=== PATIENT | female | born 1950 | race Caucasian/White ===

== ENCOUNTER 2023-06-25 10:33 | Outpatient (OUT) | payer MEDICARE, SELFPAY ==
--- NOTE | 2023-06-25 | XR_ITS ---
The [place] [id number] Patient Name: JAGJIT BEAL MRN: [id number] date: 1950 Sex: F Assigned Patient Location: [facility] Current Patient Location: [facility] Accession/Order Number: [id number] Exam Date: 06/25/2023 09:15 Report Date: 06/25/2023 11:30 At the request of: NURY PIERRE Procedure: XR foot RT min 3V STUDY: XR foot RT min 3V, [id number] HISTORY: RIGHT FOOT PAIN COMPARISON: Right foot x-rays 12/26/2022. FINDINGS: No acute fracture, dislocation, or suspicious osseous lesion. Status post first metatarsophalangeal joint arthrodesis. The fusion hardware is intact and similar alignment compared with 12/26/2022. No evidence of loosening or infection. Alignment at the first metatarsophalangeal joint is within normal limits. There is pes planus. Small plantar calcaneal spur and mild Achilles insertional enthesopathy. Mild osteoarthritis at the first tarsometatarsal joint. No other significant joint degenerative changes. XR/XR foot RT min 3V IMPRESSION: No acute osseous abnormality. Electronically authenticated by: CARIDAD LUNDBERG Date: 06/25/2023 11:30
== END 2023-06-25 10:34 | disposition home or self-care (01) ==
LOC: RAD 10:33
PROVIDERS: PCP Family Medicine; Visit Provider Podiatrist Foot & Ankle Surgery
DX: M20.21 Hallux rigidus, right foot (principal)
CPT/HCPCS: 73630

== ENCOUNTER 2023-07-11 10:51 | Outpatient (OUT) | payer MEDICARE, SELFPAY ==
--- NOTE | 2023-07-11 10:56 | ECG_ITS ---
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
--- NOTE | 2023-07-11 11:48 | P.GSHP_ITS ---
History of Present Illness History of Present Illness Chief complaint: halux valgus right foot Narrative: Patient presents for preadmission testing. Please see HPI from Dr. Swartz dated 06/25/2023. Review of Systems ROS Narrative Please see ROS from Dr. Swartz dated 06/25/2023. [facility] Medical History (Updated 07/11/23 @ 11:29 by Selin Anaya NP) Arthritis ?M19.90 - Unspecified osteoarthritis, unspecified site (ICD-10) Back pain ?M54.9 - Dorsalgia, unspecified (ICD-10) Bunionette ?M21.629 - Bunionette of unspecified foot (ICD-10) COVID-19 (05/28/23) ?U07.1 - COVID-19 (ICD-10) Fat pad atrophy of foot ?L90.9 - Atrophic disorder of skin, unspecified (ICD-10) Foot pain ?M79.673 - Pain in unspecified foot (ICD-10) H/O reduction of nasal fracture ?Z98.890 - Other specified postprocedural states (ICD-10) ?Z87.81 - Personal history of (healed) traumatic fracture (ICD-10) Hallux rigidus ?M20.20 - Hallux rigidus, unspecified foot (ICD-10) Hallux valgus ?M20.10 - Hallux valgus (acquired), unspecified foot (ICD-10) Hammertoe ?M20.40 - Other hammer toe(s) (acquired), unspecified foot (ICD-10) Nasal fracture ?S02.2XXA - Fracture of nasal bones, initial encounter for closed fracture (ICD-10) Neck pain ?M54.2 - Cervicalgia (ICD-10) Prediabetes ?R73.03 - Prediabetes (ICD-10) Retained orthopedic hardware ?Z96.9 - Presence of functional implant, unspecified (ICD-10) Seasonal allergies ?J30.2 - Other seasonal allergic rhinitis (ICD-10) Toe contracture ?M20.5X9 - Other deformities of toe(s) (acquired), unspecified foot (ICD-10) Toe deformity ?M20.60 - Acquired deformities of toe(s), unspecified, unspecified foot (ICD- 10) Urinary tract infection ?N39.0 - Urinary tract infection, site not specified (ICD-10) Surgical History (Updated 07/11/23 @ 11:29 by Selin Anaya NP) H/O cervical spine surgery ?Z98.890 - Other specified postprocedural states (ICD-10) H/O hand surgery ?Z98.890 - Other specified postprocedural states (ICD-10) H/O oophorectomy History of appendectomy ?Z90.49 - Acquired absence of other specified parts of digestive tract (ICD- 10) History of cholecystectomy ?Z90.49 - Acquired absence of other specified parts of digestive tract (ICD- 10) History of colonoscopy ?Z98.890 - Other specified postprocedural states (ICD-10) History of foot surgery ?Z98.890 - Other specified postprocedural states (ICD-10) History of laparoscopy ?Z98.890 - Other specified postprocedural states (ICD-10) History of spinal surgery ?Z98.890 - Other specified postprocedural states (ICD-10) History of tonsillectomy ?Z90.89 - Acquired absence of other organs (ICD-10) Family History (Updated 07/11/23 @ 11:29 by Selin Anaya NP) Other Family history of breast cancer Family history of diabetes mellitus Family history of heart disease Family history of myocardial infarction Family history of stroke Social History (Updated 07/11/23 @ 11:23 by Selin Anaya NP) Within the past year, how often did you have a drink containing alcohol: never Score interpretation: A score less than 3 is consistent with normal alcohol consumption. Smoking status: Never smoker Meds Home Medications and Allergies Home Medications Medication Instructions Recorded Confirmed Type Lactobacillus acidophilus 10 100 mmu cells PO DAILY 07/11/23 07/11/23 History billion cell capsule (Probiotic) apple cider vinegar 600 mg capsule 600 mg PO BID 07/11/23 07/11/23 History ascorbic acid (vitamin C) 1,000 mg 1 g PO DAILY 07/11/23 07/11/23 History capsule biotin 1 mg capsule 1 mg PO DAILY 07/11/23 07/11/23 History caffeine 200 mg tablet 200 mg PO DAILY 07/11/23 07/11/23 History calcium carbonate 600 mg-vitamin 1 tab PO DAILY 07/11/23 07/11/23 History D3 5 mcg (200 unit) tablet (Calcium 600 + D(3)) cetirizine 10 mg capsule 10 mg PO QPM 07/11/23 07/11/23 History cranberry 400 mg capsule 400 mg PO DAILY 07/11/23 07/11/23 History d-mannose 500 mg capsule (AZO 500 mg PO QDAY 07/11/23 07/11/23 History D-Mannose) elderberry fruit 200 mg capsule 200 mg PO QDAY 07/11/23 07/11/23 History ibuprofen 800 mg tablet (IBU) 800 mg PO Q8H 07/11/23 07/11/23 History nitrofurantoin macrocrystal 50 mg 50 mg PO .three times a week 07/11/23 07/11/23 History capsule Allergies Allergy/AdvReac Type Severity Reaction Status Date / Time codeine Allergy Nausea Verified 07/11/23 11:16 fexofenadine [From Carleen-D] Allergy lightheaded Verified 07/11/23 11:16 metaxalone [From Skelaxin] Allergy Anxiety Verified 07/11/23 11:16 morphine Allergy Vomiting Verified 07/11/23 11:16 pseudoephedrine Allergy lightheaded Verified 07/11/23 11:16 [From Carleen-D] Sulfa (Sulfonamide Allergy itchy Verified 07/11/23 11:16 Antibiotics) tramadol Allergy unknown Verified 07/11/23 11:16 Exam Narrative Exam Narrative: Constitutional: Awake, alert, comfortable, well-appearing, nontoxic, interactive, vital signs as charted Head: Normocephalic, atraumatic Neck: Supple, normal appearance, normal range of motion, no meningeal signs, no lymphadenopathy Respiratory: No respiratory distress, breath sounds clear Cardiovascular: Regular rate and rhythm, strong and regular heart tones Psychiatric: Oriented ?3, normal affect Assessment and Plan Assessment and Plan (1) Bunionette: (2) Foot pain: (3) Hallux rigidus: (4) Hallux valgus: (5) Hammertoe: (6) Retained orthopedic hardware: (7) Toe contracture: (8) Toe deformity: (9) Fat pad atrophy of foot: Plan Right foot removal of hardware, Jorge osteotomy of great toe, 2nd metatarsal ost eotomy with 2nd hammertoe correction, possible flexor tenotomies of toes 3, 4, & 5, implantation of fat pad allograft scheduled with Dr. Swartz 07/25/2023.
[2023-07-11 11:58] LABS: Anion Gap 11.1; BUN Creatinine Ratio 18.4; Calcium 9.4 mg/dL (8.5-10.1); Carbon Dioxide 29.9 mmol/L (21.0-32.0); Chloride 103 mmol/L (98-107); Estimated GFR (African America >60 (>=60); Estimated GFR (Non-African Ame >60 (>=60); Glucose 91 mg/dL (74-106); Sodium 140 mmol/L (136-145)
== END 2023-07-11 10:52 | disposition home or self-care (01) ==
PROVIDERS: PCP Family Medicine; Visit Provider Podiatrist Foot & Ankle Surgery
DX: Z01.812 Encounter for preprocedural laboratory examination (principal); Z01.810 Encounter for preprocedural cardiovascular examination; M20.11 Hallux valgus (acquired), right foot; Z96.9 Presence of functional implant, unspecified; I10 Essential (primary) hypertension
CPT/HCPCS: 80048; 93005; G0463

== ENCOUNTER 2023-07-25 07:14 | Day surgery (SDC) | payer MEDICARE, SELFPAY ==
[2023-07-11 11:45] VITALS: BP 112/70; PULSE 65; RESP 16; TEMP 36.2; O2SAT 98; BMI 23.8
[2023-07-25] VITALS (24 sets, daily range): BP systolic 100–136; BP diastolic 49–94; PULSE 59–83; RESP 11–23; TEMP 36.2–36.9; O2SAT 92–100; BMI 24.0
--- NOTE | 2023-07-25 | FL_ITS ---
[address] [address] Patient Name: JAGJIT BEAL MRN: [id number] date: 1950 Sex: F Assigned Patient Location: [facility] Current Patient Location: [facility] Accession/Order Number: [id number] Exam Date: 07/25/2023 10:36 Report Date: 07/25/2023 12:56 At the request of: NURY PIRERE Procedure: FL fluoroscopy <1hr NON-READ EXAM: FL fluoroscopy <1hr NON-READ HISTORY: TECHNIQUE: FINDINGS: Please see Operative Report. Electronically authenticated by: RADIOLOGIST NO Date: 07/25/2023 12:56
[2023-07-25 07:37] LABS: Eosinophils Absolute Auto 0.1 10^3/uL (0.0-0.7); Eosinophils Percent Auto 1.4 % (0.9-7.0); Hemoglobin 13.8 g/dL (12.0-16.0); Immature Granulocytes Abs Auto 0.01 10^3/uL (0.00-0.03); Immature Granulocytes Pct Auto 0.2 % (0.0-0.5); Lymphocytes Absolute Auto 1.4 10^3/uL (1.2-3.8); Lymphocytes Percent Auto 32.4 % (20.5-60.0); Mean Corpuscular HGB Conc 33.7 g/dL (29.9-35.2); Mean Corpuscular Hemoglobin 32.2 pg (26.7-34.0); Mean Corpuscular Volume 95.8 fL (81.0-99.0); Mean Platelet Volume 10.2 fL (9.5-13.5); Monocytes Absolute Auto 0.4 10^3/uL (0.3-0.8); Monocytes Percent Auto 10.1 % (1.7-12.0); Neutrophils Absolute Auto 2.3 10^3/uL (1.4-6.5); Neutrophils Percent Auto 54.9 % (43.0-75.0); Platelet Count 169 10^3/uL (150-450); Red Blood Count 4.28 10^6/uL (4.20-5.40); Red Cell Distribution Width 12.1 % (11.0-15.0); White Blood Count 4.2 10^3/uL (4.0-11.0)
[2023-07-25 07:46] LABS: Glucometer 103 mg/dL (74-106)
[2023-07-25] MEDS: LACTATED RINGER'S SOLUTION 1,000 ML 50 ML IV ×2 (07:58→11:40)
--- NOTE | 2023-07-25 09:43 | PC.NURSE ---
[address] SHIPLEY AND Karon MOMIN RN. MULTIPLE ATTEMPTS BY WITHOUT SUCCESS. 0900 SAO2 100% WITH 2 L NC P 66 R 16 118/68. 0929 DR. NUGENT CAME IN AND DID BLOCK. LAST VS @0935 SAO2 100% ON 2 L P62 R16 BP 105/47.
[2023-07-25] MEDS: CEFAZOLIN SODIUM/DEXTROSE,ISO 2 GM/50 ML PIGGYBACK IV (09:57)
--- NOTE | 2023-07-25 11:41 | P.ORON_ITS ---
Brief Operative Note Date of procedure: 07/25/23 Pre-op diagnosis: right hallux valgus, retained hardware, pre-dislocation synd jase Post-op diagnosis: other (right hallux valgus status post 1st metatarsophalangeal joint fusion with painful retained hardware, pre-dislocation syndrome of 2nd and 3rd metatarsophalangeal joints, 2nd hammertoe and contractures of toes 3, 4 , & 5; plantar fat pad atrophy) Procedure: procedures performed: Right Jorge hallux osteotomy, removal of orthopedic hardware 1st metatarsophalangeal joint, An osteotomy of 2nd and 3rd metatarsals, 2nd PIPJ arthroplasty, flexor tenotomy of toes 3, 4 & 5 Intraoperative findings: Retained hardware was stable without evidence of loosening. 1st metatarsal phalangeal joint was fused and consolidated. Dynamic valgus deformity of the great toe when the forefoot was loaded causing the great toe to abut the 2nd toe. Reducible contracture with instability noted at the 2nd metatarsal phalangeal joint and proximal interphalangeal joint. Instability and positive dorsal drawer on the 2nd and 3rd metatarsophalangeal joints and reducible mild contractures of toes 3, 4, & 5. Plantar fat pad atrophy notable with fat pad displacement distally which did improve with deformity correction. Procedures in detail: Patient was identified in pre op and consent was reviewed. Correct side and site were identified and marked. Pre-op antibiotics were started. Patient was brought to OR suite and place on table in a supine position. General anesthesia was administered. Tourniquet applied. Operative extremity was prepped and draped in usual sterile fashion. Formal time-out was performed and the foot/ankle were exsanguinated and tourniquet inflated. Incision was placed over the 1st metatarsophalangeal joint and a combination of sharp and blunt dissection gained access to the plate and screw construct spanning the 1st metatarsophalangeal joint. The screws from the plate as well as an interfrag screw was removed with appropriate screwdriver allowing the plate to be then removed with a of a elevator. The joint was inspected and noted be fused without any range of motion. Incision over the great toe was then extended distally to the level of the interphalangeal joint of the great toe. The extensor tendon was protected throughout. Then an oblique osteotomy of the great toe was performed from distal?medial to proximal?lateral while maintaining the lateral cortex as a hinge. Several passes of the saw blade were used to resect the wedge of bone from the proximal phalanx which aided in deformity correction. I held the toe in a reduced position while my assistant director of plant operations fixated the osteotomy with a 10 mm stable which was placed accordingly. Good bony apposition at the osteotomy site with stability was noted as well as deformity correction. A dorsal incision over the 2nd digit and extended between the 2nd & 3rd metatarsals was utilized to expose the extensor tendon. The tendon was cut and reflected dorsally and proximally exposing the proximal interphalangeal joint and metatarsophalangeal joint. Capsulotomy of the 2nd metatarsophalangeal joint was performed sharply. A McGlammry elevator was utilized to expose the 2nd metatarsal head and a sagittal saw was used to create an osteotomy parallel to the weightbearing surface of the foot. The metatarsal head was then translated proximally and temporarily fixated with a K wire and the elevator was removed. Position was checked under fluoroscopy followed by a 2.0 mm snap off screw which was placed from a dorsal plantar direction. A rongeur was used to remove the dorsal cortical shelf. Temporary fixation was removed. Surgical site was irrigat ed with copious amounts of sterile saline. the previously placed incision was then extended proximally between the 3rd and 4th metatarsals and comminution sharp and blunt dissection gained access to the 3rd metatarsophalangeal joint. The extensor tendon was identified and retracted allowing capsulotomy of the metatarsophalangeal joint to be performed. A McGlammry elevator was utilized to further release of soft tissues around the 3rd metatarsal phalangeal joint. A sagittal saw was used to create an osteotomy parallel to the weightbearing surface of the foot. The metatarsal head was then translated proximally and temporarily fixated with a K wire and the elevator was removed. Position was checked under fluoroscopy followed by a 2.0 mm snap off screw which was placed from a dorsal plantar direction. A rongeur was used to remove the dorsal cortical shelf. upon removing the dorsal cortical shelf was noted that the osteotomy gapped slightly therefore decision was made to place an additional 2.0 mm snap off screw which stabilized the osteotomy and provided compression at the osteotomy site. the extensor tendon to the 2nd toe was then repaired with absorbable suture and all surgical sites were irrigated copiously. Due to the residual contractures at toes three, four and five decision was made to perform a percutaneous flexor tenotomy of each toe is done so with a stab incision plantarly at the level of the distal interphalangeal joint. The flexor tendon was isolated with a hemostat then transected transversely allowing the deformity of the 3rd, 4th and 5th toes to reduce. The stab incisions were closed with one absorbable stitch for hemostasis after irrigation. the dorsal foot incisions were then closed in layers The tourniquet was deflated with a prompt hyperemic response and capillary refill time was brisk to the tip the toes. A dry sterile dressing consisting of Xeroform on the incisions followed by 4 x 4 gauze, ABDs, and Kerlix were applied. Multiple layers of cast padding were then applied to ensure all bony prominences were well-padded. then an Kolton wrap was placed from the forefoot to the popliteal fossa. Patient tolerated the procedure and anesthesia well and was transported to the recovery room with vital signs stable and brisk capillary refill time to the toes. POSTOPERATIVE PLAN: Discharge home under family's care Post op instructions provided verbally and written prescription(s) were placed in chart weightbearing as tolerated in cam boot Follow-up in 1 week Implants: Medline 10 mm staple and 2.0 snap off screws x3 Anesthesia: regional and General-LMA Surgeon: Catracho Swartz Floor Mechanic: Jg Avalos Estimated blood loss (mL): 10 Pathology: none sent Condition: stable Disposition: PACU Preoperative Details Reason for procedure: patient is a 73-year-old female who underwent right 1st metatarsophalangeal joint fusion on 06/28/22. At her one-year follow-up she is very happy with pain relief associated with 1st MPJ however did note worsening valgus of the toe when weightbearing. With the foot loaded the great toes rectus however when loaded on clinical exam the IPJ plantarflexed and pronated slightly causing irritation on the 2nd toe. She also related to sensitivity over the 1st metatarsal phalangeal joint from the hardware this symptom was most significant with tight fitting shoes. She has related to worsening pain plantar forefoot sub 2nd and 3rd and 4th metatarsal heads associated with the callus formation and flexible contractures of the lesser toes. She have plantar fat pad atrophy as well. I discussed both surgical and nonsurgical treatment options and patient wished to proceed with surgical reconstruction. I did recommend that fat allograft for plantar fat pad atrophy however this was not approved by her insurance and she was not willing to pay for the cost of the graft out of pocket. She is educated and potential risks and benefits and all questions were answered to her satisfaction
[2023-07-25 12:30] LABS: Glucometer 123 mg/dL (74-106)
--- NOTE | 2023-07-25 12:52 | XR_ITS ---
The [address] [address] Patient Name: JAGJIT BEAL MRN: [id number] date: 1950 Sex: F Assigned Patient Location: [facility] Current Patient Location: Accession/Order Number: [id number] Exam Date: 07/25/2023 12:45 Report Date: 07/26/2023 07:57 At the request of: RHEA CARTER Procedure: XR foot RT min 3V PROCEDURE: XR foot RT min 3V COMPARISON: 06/25/2023 HISTORY: postop xr pacu FINDINGS: BONES:Osteotomy second and third metatarsal heads with placement of screws. Resection head of the second proximal phalanx. Interval removal of most of the hardware across the first metatarsal-phalangeal joint. SOFT TISSUES:Surgical soft tissue swelling and subcutaneous air EFFUSION:None visible. OTHER: Negative. XR/XR foot RT min 3V IMPRESSION: Postsurgical changes as detailed above Electronically authenticated by: ANAND EDUARDO Date: 07/26/2023 07:57
[2023-07-25] MEDS: ONDANSETRON PF 4 MG/2 ML VIAL IV (12:54)
[2023-07-25] MEDS: PROMETHAZINE HCL 25 MG SUPP.RECT PR (13:41)
== END 2023-07-25 15:34 | disposition home or self-care (01) ==
PROVIDERS: PCP Family Medicine; Visit Provider Podiatrist Foot & Ankle Surgery
PROC: (CPT 20680; principal; 2023-07-25 09:15)
DX: M20.11 Hallux valgus (acquired), right foot (principal); Z96.9 Presence of functional implant, unspecified; I10 Essential (primary) hypertension; Z86.16 Personal history of COVID-19; L90.9 Atrophic disorder of skin, unspecified; Z87.81 Personal history of (healed) traumatic fracture; R73.03 Prediabetes; J30.2 Other seasonal allergic rhinitis; Z87.440 Personal history of urinary (tract) infections; Z79.899 Other long term (current) drug therapy; M20.5X1 Other deformities of toe(s) (acquired), right foot; Z90.49 Acquired absence of other specified parts of digestive tract; Z90.721 Acquired absence of ovaries, unilateral; M20.41 Other hammer toe(s) (acquired), right foot; M25.871 Other specified joint disorders, right ankle and foot; M21.621 Bunionette of right foot
CPT/HCPCS: 20680; 28011; 28285; 28308; 28310; 36415; 64445; 73630; 76000; 76942; 82948; 85025; C1713; J2704

== ENCOUNTER 2023-08-20 09:50 | Outpatient (OUT) | payer MEDICARE, SELFPAY ==
--- NOTE | 2023-08-20 | XR_ITS ---
The [address] [address] Patient Name: JAGJIT BEAL MRN: [id number] date: 1950 Sex: F Assigned Patient Location: [facility] Current Patient Location: Accession/Order Number: [id number] Exam Date: 08/20/2023 10:10 Report Date: 08/21/2023 08:04 At the request of: NURY PIERRE Procedure: XR foot RT min 3V PROCEDURE: XR foot RT min 3V HISTORY: RIGHT FOOT PAIN COMPARISON: XR foot right 07/25/2023 FINDINGS: BONES:Osteotomy and bone staple repair of first proximal phalanx and prior osseous fusion of the first metatarsophalangeal joint. Stable osteotomy and screw repair of heads of the second third metatarsals. Prior resection of head of second proximal phalanx. Pes planus. SOFT TISSUES:No visible soft tissue swelling. EFFUSION:None visible. OTHER: Negative. XR/XR foot RT min 3V IMPRESSION: 1. Stable surgical changes and degenerative changes. No new findings. Electronically authenticated by: GUS OLIVO Date: 08/21/2023 08:04
== END 2023-08-20 09:51 | disposition home or self-care (01) ==
LOC: RAD 09:50
PROVIDERS: PCP Family Medicine; Visit Provider Podiatrist Foot & Ankle Surgery
DX: M79.671 Pain in right foot (principal)
CPT/HCPCS: 73630

== ENCOUNTER 2023-09-10 10:30 | Outpatient (OUT) | payer MEDICARE, SELFPAY ==
--- NOTE | 2023-09-10 | XR_ITS ---
[address] [address] Patient Name: JAGJIT BEAL MRN: [id number] date: 1950 Sex: F Assigned Patient Location: [facility] Current Patient Location: [facility] Accession/Order Number: [id number] Exam Date: 09/10/2023 11:09 Report Date: 09/10/2023 16:12 At the request of: NURY PIERRE Procedure: XR foot RT min 3V EXAM: XR foot RT min 3V HISTORY: RIGHT FOOT PAIN COMPARISON: Foot radiographs from 08/20/2023 TECHNIQUE: AP, lateral, oblique radiographs of the foot labeled right FINDINGS: Postsurgical changes of first metatarsophalangeal joint effusion. Metallic staple device at the first proximal phalanx osteotomy site. Metallic anchors within the second and third metatarsal heads. Previous second proximal phalanx head resection. No erosion. No periosteal reaction. No acute fracture. No dislocation. Pes planus. Plantar calcaneal enthesophyte. Unchanged alignment. Soft tissue swelling about the first and second toes. XR/XR foot RT min 3V IMPRESSION: Soft tissue swelling of the first and second digits. Degenerative and postsurgical changes as above. Electronically authenticated by: REYNALDO HARDING Date: 09/10/2023 16:12
== END 2023-09-10 10:31 | disposition home or self-care (01) ==
LOC: RAD 10:31
PROVIDERS: PCP Family Medicine; Visit Provider Podiatrist Foot & Ankle Surgery
DX: M20.21 Hallux rigidus, right foot (principal)
CPT/HCPCS: 73630

== ENCOUNTER 2023-10-02 10:21 | Outpatient (OUT) | payer MEDICARE, SELFPAY ==
--- NOTE | 2023-10-02 | XR_ITS ---
The [address] [address] Patient Name: JAGJIT BEAL MRN: [id number] date: 1950 Sex: F Assigned Patient Location: [facility] Current Patient Location: [facility] Accession/Order Number: [id number] Exam Date: 10/02/2023 10:23 Report Date: 10/02/2023 11:20 At the request of: NURY PIERRE Procedure: XR foot RT min 3V PROCEDURE: XR foot RT min 3V HISTORY: RIGHT FOOT PAIN ; occasional tender bump medial to first toe COMPARISON: XR foot right 09/10/2023 FINDINGS: BONES:Prior osteotomy/fracture and bone staple repair of first proximal phalanx; prior fracture line is partially visible indicating incomplete osseous fusion. Fractured stable; unchanged. Prior osteotomy and screw repair of heads of second and third metatarsal. Prior resection of head of second proximal phalanx. Complete loss of plantar arch. SOFT TISSUES:No visible soft tissue swelling. EFFUSION:None visible. OTHER: Negative. XR/XR foot RT min 3V IMPRESSION: 1. Stable surgical changes and degenerative changes as detailed above. Electronically authenticated by: GUS OLIVO Date: 10/02/2023 11:20
--- OUTSIDE RECORDS SUMMARY | 2023-10-02 10:28 | XMS_ITS | CCD ---
Author Name Unknown Address [address] [place] [address] Organization [facility] Care Team Providers Care Community Cultural Development Officer Name Role Phone Anand Steinberg Primary Care Physician Anand Steinberg Unavailable DO Anand Steinberg Primary Care Provider DO Anand Steinberg Attending Provider [phone] Anand Steinberg DO Primary Care Provider ISMA PONCE Attending Unavailable ANAND STEINBERG Primary Care Unavailable ANJANA PONCERBECKY Referring Unavailable ANAND STEINBERG Primary Care Unavailable Susan Mcgee Unavailable DO Anand Steinberg Primary Care Provider [phone] DO Anand Steinberg Attending Provider [phone] NURY SWARTZ Attending Unavailable MARYAN, DR MICHEL Primary Care Unavailable GEOVANI, DR GUS Stephenson Consulting Unavailable NURY SWARTZ Admitting Unavailable NURY SWARTZ Consulting Unavailable MARYAN, DR MICHEL Primary Care Unavailable FREDA YBARRA Admitting Unavailable FREDA YBARRA Attending Unavailable GEOVANI, DR GUS Stephenson Consulting Unavailable FREDA YBARRA Consulting Unavailable MARYAN, DR MICHEL Primary Care Unavailable FREDA YBARRA Admitting Unavailable FREDA YBARRA Attending Unavailable GEOVANI, DR GUS Stephenson Consulting Unavailable FREDA YBARRA Consulting Unavailable PAY ., DR TSE Attending Unavailable PAY ., DR TSE Admitting Unavailable MARYAN, DR MICHEL Primary Care Unavailable NURY SWARTZ Consulting Unavailable NURY SWARTZ Attending Unavailable MARYAN, DR MICHEL Primary Care Unavailable NURY SWARTZ Admitting Unavailable NURY SWARTZ Attending Unavailable MARYAN, DR MICHEL Primary Care Unavailable NURY SWARTZ Admitting Unavailable NURY SWARTZ Consulting Unavailable MARYAN, DR MICHEL Primary Care Unavailable SHAVONNE, DR ROSA Stoner Admitting Unavailable WEST, DR ANAND Parra Consulting Unavailable NADERER, DR ROSA Stoner Attending Unavailable NADERER, DR ROSA Stoner Consulting Unavailable HIGHLANDER, NURY Hawkins Consulting Unavailable BRANDONSAVANNAH Wang Consulting Unavailable DEVI ., ДМИТРИЙ MENDOZA Consulting Unavailable MORGOSMARTELL Consulting Unavailable GIRVIN, DR MICHEL Primary Care Unavailable AMADA, FREDA Attending Unavailable AMADA, FREDA Admitting Unavailable ZISABINE, DR GUS Stephenson Consulting Unavailable AMADA, FREDA Consulting Unavailable GIRVIN, DR MICHEL Primary Care Unavailable WEST, DR ANAND Parra Consulting Unavailable HIGHLANDER, NURY Hawkins Attending Unavailable IGNACIO, NURY Hawkins Admitting Unavailable HIGHLANDER, NURY Hawkins Consulting Unavailable Karis Bautista Unavailable Maryan, Anand Primary Care Unavailable Girvin, Anand Admitting Unavailable Girvin, Anand Attending Unavailable Girrachna, Anand Primary Care Unavailable Girrachna, Anand Admitting Unavailable Girvin, Anand Attending Unavailable Girvin, Anand Primary Care Unavailable Girrachna, Anand Admitting Unavailable Girvin, Anand Attending Unavailable JASS, CLAY Albert Attending Unavailab le JASS, CLAY Albert Attending Unavailab le JASS, CLAY Albert Attending Unavailab le JASS, CLAY Albert Admitting Unavailab le JASS, CLAY Albert Attending Unavailab le JASS, CLAY Albert Attending Unavailab le Allergies Allergy Classification Reported Allergen(s) Allergy Type Date of Onset Reaction(s) Facility (20 sources) Codeine; Translations: [codeine] Drug Allergy 01-14-20 18 [facility] Other (19 sources) Morphine; Translations: [morphine] Drug Allergy [facility]a [facility]finding[facility] Other (12 sources) Nicotine; Translations: [nicotine] Drug Allergy 12-03-19 19 Headache (finding), Other: See Comments [facility] (7 sources) Sulfonamides (Antibiotic); Translations: [sulfa drugs] Drug allergy Itching [facility] (20 sources) traMADol; Translations: [tramadol] Drug Allergy 12-03-19 19 Dizzy/Light-he aded, Unknown, Dizziness mygola Other (1 source) metaxalone Drug Allergy Unknown mygola Other (12 sources) Sulfonamides (Antibiotic) Drug allergy Unknown mygola Other (12 sources) Carleen-D 12 Hour Propensity to adverse reactions Unknown mygola Other (12 sources) muscle relaxers Propensity to adverse reactions dizzy mygola Other (12 sources) metaxalone; Translations: [Skelaxin] Drug Allergy Unknown [facility] (6 sources) Sulfonamides (Antibiotic); Translations: [SULFA (SULFONAMIDE ANTIBIOTICS)] Allergy to substance 01-14-20 18 Itching [facility] (1 source) Codeine Drug Allergy [facility] (1 source) Morphine Drug Allergy [facility] (1 source) Nicotine Drug Allergy [facility] (1 source) Sulfonamides (Antibiotic) Drug allergy (disorder) [facility] (1 source) Codeine Drug Allergy 12-03-19 [facility] (1 source) Nicotine Drug Allergy 12-03-19 [facility] (1 source) traMADol Drug Allergy 12-03-19 [facility] Repository Medications Current Medications Medication Drug Class(es) Dates Sig (Normalized) Sig (Original) amoxicillin 875 mg / clavulanate 125 mg oral tablet (3 sources) Penicillin-class Antibacterial Start: 03-27-2023 take 1 tablet by mouth every twelve hours Amoxicillin-Pot Clavulanate 875-125 MG 1 tablet Orally every 12 hrs for 10 day(s) Mar, Active apple cider vinegar 500 mg oral tablet (14 sources) Start: 12-02-2018 take 500 mg by mouth twice daily Apple Cider Vinegar Active 500 MG PO Twice daily December 02, 2018 12:00am Apple Cider Vine gar Active biotin 1 mg oral tablet (12 sources) take 1 tablet by neris th every twenty-four hours Biotin 1000 MCG 1 tablet Orally Once a day Active take 1 tablet by mouth once reji y caffeine 200 mg oral tablet (14 sources) Central Nervous System Stimulant, Methylxanthine Start: 12-02-2018 take 1 tablet by mouth twice daily Caffeine (No Doz) 200 mg Tablet Active 200 MG PO Twice daily December 02, 2018 12:00am calcium carbonate 1500 mg oral tablet (12 sources) take 1 tablet by mouth every twelve hours Calcium 600 MG 1 tablet with meals Orally Twice a day Active calcium carbonate 1500 mg / cholecalciferol 200 unt oral capsule (2 sources) Vitamin D Start: 12-02-2018 take 2 tablets by mouth once daily Calcium Carbonate-Vitami n D3 (Calcium 600 + D(3)) 600 mg calcium- 200 unit Capsule Active 2 TAB PO Daily December 02, 2018 12:00am cetirizine hydrochloride 10 mg disintegrating oral tablet (18 sources) Histamine-1 Receptor Antagonist Start: 01-23-2021 Zyrtec Dissolve 10 mg oral tablet, dispersible 10 mg = 1 tab(s), Oral, Daily, PRN for allergy symptoms Start Date: 01/23/21 Status: Ordered take 1 tablet by neris every twenty-four hours Cetirizine HCl 10 MG 1 tablet Orally Onc e a day Active Cranberry preparation (18 sources) Non-Standardized Food Allergenic Extract, Non-Standardized Plant Allergenic Extract Start: 01-22-2022 cranberry oral capsule Refill(s) 0 Start Date: 01/22/22 Status: Ordered Cranberry Active D-Mannose (12 sources) D-Mannose Active Emergen-C Immune Plus - (12 sources) Emergen-C Immune Plus - Orally prn Active Emergen-C Immune Plus - Orally prn Not-Taking ibuprofen 800 mg oral tablet (12 sources) Nonsteroidal Anti-inflammatory Drug take 1 tablet by mouth every eight hours Ibuprofen 800 MG 1 tablet Orally Three times a day prn Active meclizine hydrochloride 12.5 mg oral tablet (12 sources) Antiemetic Start: 020 take 1 tablet by mouth twice daily Meclizine HCl 12.5 MG 1 tablet ` Orally bid for 10 days Jul, Active nitrofurantoin, macrocrystals 50 mg oral capsule (18 sources) Nitrofuran Antibacterial Start: 023 nitrofurantoin macrocrystals 50 mg Cap Refills(s) 0 Start Date: 08/21/23 Status: Ordered Start: 08-15-2021 End: 08-04-2023 nitrofurantoin macrocrystals 50 mg Cap 50 mg = 1 cap(s), Oral, MonWedFri, X 90 day(s), # 39 cap(s), Refills(s) 3, Pharmacy: [facility], 154, cm, 08/09/22 13:18:00 EST, Height/Length Dosing, 57, kg, 08/09/22 13:18:00 EST, Weight Dosing Start Date: 08/09/22 Stop Date: 08/04/23 Status: Ordered Paxlovid (300/100) 20 x 150 MG & 10 x 100MG (3 sources) Start: 05-24-2022 Paxlovid (300/ 100) 20 x 150 MG & 10 x 100MG as directed Orally two times a day May, Active probiotic (12 sources) probiotic as dir ected Active Super C Complex 500 MG (12 sources) take 1 tablet by mouth twice cynthia ly take 1 tablet by mouth twice cynthia ly Super C Complex 500 MG 1 tablet Orally bid Active Vitamin D (12 sources) Vitamin D Active Completed/Discontinued Medications Medication Drug Class(es) Dates Sig (Normalized) Sig (Original) betamethasone 3 mg/ml / betamethasone acetate 3 mg/ml injectable suspension (2 sources) Corticosteroid Start: 11-21-2022 End: 11-21-2022 betamethasone acetate-betamethason e sodium phosphate 3 mg injection (CELESTONE) Start: 11-21-2022 End: 11-21-2022 betamethasone acetate-betame thasone sodium phosphate 3 mg injection (CELESTONE) fluticasone propionate 0.05 mg/actuat metered dose nasal spray (2 sources) Corticosteroid Start: 01-13-2018 take 1 spray(s) nasal route once daily at bedtime fluticasone (FLONASE) 50 mcg/actuation nasal spray Use 1 [place] in each nostril daily at bedtime. 0 01/13/2018 Active Comment on above: Use 1 [place] in each nostril daily at bedtime. Ketorolac (11 sources) Nonsteroidal Anti-inflammatory Drug, Cyclooxygenase Inhibitor Start: 12-07-2017 Toradol per 15 mg Nov, 60 mg 10 ml lidocaine hydrochloride 10 mg/ml injection (2 sources) Antiarrhythmic, Amide Local Anesthetic Start: 11-21-2022 End: 11-21-2022 lidocaine (PF) 10 mg/mL (1 %) 0.5 mL injection (XYLOCAINE) Start: 11-21-2022 End: 11-21-2022 lidocaine (PF) 10 mg/mL (1 % ) 0.5 mL injection (XYLOCAINE) Problems Active Problems Problem Classification Problem Date Documented Date Episodic/Chronic Acquired foot deformities (19 sources) Bunion; Translations: [Hallux valgus (acquired), unspecified foot] Onset: 06-12-2022 Chronic Allergic reactions (13 sources) Environmental allergy; Translations: [Other allergy status, other than to drugs and biological substances] Onset: 04-11-2022 Resolved: 04-11-2022 Episodic Diabetes mellitus without complication (4 sources) Hyperglycemia, unspecified; Translations: [Prediabetes] Onset: 10-06-2021 Resolved: 04-11-2022 Episodic Diseases of white blood cells (15 sources) Leukopenia; Translations: [Decreased white blood cell count, unspecified] Onset: 10-06-2021 Resolved: 04-11-2022 Chronic Disorders of lipid metabolism (16 sources) Hyperlipidemia; Translations: [Hyperlipidemia, unspecified] Onset: 10-06-2021 Resolved: 04-11-2022 Chronic E Codes: Natural/environment (1 source) Bitten by dog, initial encounter Episodic Fracture of lower limb (12 sources) Fracture of distal end of fibula; Translations: [Other fracture of upper and lower end of right fibula, initial encounter for closed fracture] Episodic Genitourinary symptoms and ill-defined conditions (20 sources) Sensation as if bladder still full; Translations: [Feeling of incomplete bladder emptying] Onset: 01-22-2022 Episodic Open wounds of extremities (1 source) Open bite of left hand, initial encounter Episodic Open wounds of head; neck; and trunk (1 source) Open bite of other part of head, initial encounter Episodic Osteoarthritis (12 sources) Arthritis; Translations: [Unspecified osteoarthritis, unspecified site] Chronic Other connective tissue disease (2 sources) Triggering of digit; Translations: [Trigger finger, left middle finger] Episodic Other connective tissue disease (5 sources) Pain in right foot; Translations: [PAIN IN RIGHT FOOT] Onset: 07-04-2022 Episodic Other injuries and conditions due to external causes (2 sources) Unspecified injury of nose, initial encounter; Translations: [Unspecified injury of nose, initial encounter] Onset: 02-01-2023 Episodic Other non-traumatic joint disorders (12 sources) Ankle pain; Translations: [Pain in right ankle and joints of right foot] Episodic Other screening for suspected conditions (not mental disorders or infectious disease) (2 sources) Patient encounter status; Translations: [Encounter for screening for malignant neoplasm of colon] 12-02-2018 Episodic Other upper respiratory disease (2 sources) Other specified disorders of nose and nasal sinuses; Translations: [Other specified disorders of nose and nasal sinuses] Onset: 02-01-2023 Episodic Residual codes; unclassified (1 source) Pain, unspecified; Translations: [Pain] Onset: 11-21-2022 Episodic Residual codes; unclassified (4 sources) Procedure and treatment not carried out due to patient leaving prior to being seen by health care provider; Translations: [PROC AND TX NOT CARRIED OUT PT LEAVE] Onset: 02-01-2023 Episodic Unclassified (6 sources) Finding of sensation of bladder 01-22-2022 Urinary tract infections (20 sources) Cystitis; Translations: [Other cystitis with hematuria] Onset: 10-06-2021 Resolved: 04-11-2022 Episodic Past or Other Problems Problem Classification Problem Date Documented Da te Episodic/Chronic Acquired foot deformities (4 sources) Bunion of unspecified foot; Translations: [Flat foot [pes planus] (acquired), right foot] Onset: 04-11-2022 Resolved: 04-11-2022 Episodic Other aftercare (4 sources) Other terminal makeup operator (current) drug therapy; Translations: [OT [facility] CURRENT DRUG THERAPY] Onset: 10-06-2021 Resolved: 04-11-2022 Episodic Other bone disease and musculoskeletal deformities (1 source) Other specified disorders of bone density and structure, unspecified site; Translations: [OTH D/O BONE DEN STRUCT UNS SITE] Onset: 07-04-2022 Episodic Other connective tissue disease (2 sources) Digital mucous cyst; Translations: [Ganglion, unspecified hand] Onset: 03-02-2019 03-02-2019 Episodic Other connective tissue disease (2 sources) Pain in right hand; Translations: [Pain in right hand] Onset: 03-02-2019 03-02-2019 Episodic Other nutritional; endocrine; and metabolic disorders (1 source) Abnormal weight gain Onset: 10-06-2021 Resolved: 10-06-2021 Episodic Other nutritional; endocrine; and metabolic disorders (2 sources) Abnormal weight loss; Translations: [Abnormal weight loss] Onset: 04-11-2022 Resolved: 04-11-2022 Episodic Other skin disorders (2 sources) Mass of lower limb; Translations: [Localized swelling, mass and lump, left lower limb] Onset: 01-13-2018 01-20-2018 Episodic Other skin disorders (1 source) Atrophic disorder of skin, unspecified; Translations: [ATROPHIC DISORDER SKIN UNSPECIFIED] Onset: 07-04-2022 Episodic Residual codes; unclassified (1 source) Acquired absence of ovaries, unilateral; Translations: [ACQUIRED ABSENCE OVARIES UNILATERAL] Onset: 07-04-2022 Episodic Results Test Name Value Interpretation Reference Range Facility [facility] 08-22-2023 Lab Reports [id number] Normal [facility] Ambulatory Visit Summaryon 1 10-21-2022 Ambulatory Visit Summary NIRANJAN RICARDO :1950 Visit Date:08/21/2023 Ambulatory Visit Instructions Your Diagnosis Recurrent UTI Tests Performed Urnls Dip Stick Auto w/o Microscopy POC [id number] Your Care Team Attending Physician - BREANNA REGAN PA-C Primary Care Physician - Anand Steinberg DO This Is Your Medications List nitrofurantoin (nitrofurantoin macrocrystals 50 mg Cap) Contact prescribing physician if questions or concerns cetirizine (Zyrtec Dissolve 10 mg oral tablet, dispersible) cranberry (cranberry oral capsule) Procedures Performed Cystourethroscopy with dilation of urethral stricture (02/19/2019), Cystourethroscopy with dilation of urethral stricture (06/18/2011), Appendectomy, back surgery, Bilateral tubal ligation, Cholecystectomy, Colonoscopy, Release of trigger finger, Removal of ovarian cyst, Tonsillectomy. Discharge Vitals Blood Pressure 138/72 Height 154 cm Height 61 in Weight 56 kg Weight 123.2 lb BMI 23.61 What to do next Scheduled Follow-Up Appointments January. 2023 10:00 AM EDT With: JASS WILLIAMSON, BREANNA Albert Where: [facility] Ruth Ann Galicia [facility] Patient Educationon 08-21-20 Patient Education Obstetrics and Gynecology Urinary Tract Infection, Adult A urinary tract infection (UTI) is an infection of any part of the urinary tract. The urinary tract includes: ? The kidneys. ? The ureters. ? The bladder. ? The urethra. These organs make, store, and get rid of pee (urine) in the body. What are the causes? This infection is caused by germs (bacteria) in your genital area. These germs grow and cause swelling (inflammation) of your urinary tract. What increases the risk? The following factors may make you more likely to develop this condition: ? Using a small, thin tube (catheter) to drain pee. ? Not being able to control when you pee or poop (incontinence). ? Being female. If you are female, these things can increase the risk: ? Using these methods to prevent : ? A medicine that kills sperm (spermicide). ? A device that blocks sperm (diaphragm). ? Having low levels of a female hormone (estrogen). ? Being . You are more likely to develop this condition if: ? You have genes that add to your risk. ? You are sexually active. ? You take antibiotic medicines. ? You have trouble peeing because of: ? A prostate that is bigger than normal, if you are male. ? A blockage in the part of your body that drains pee from the bladder. ? A kidney stone. ? A nerve condition that affects your bladder. ? Not getting enough to drink. ? Not peeing often enough. ? You have other conditions, such as: ? Diabetes. ? A weak disease-fighting system (immune system). ? Sickle cell disease. ? Gout. ? Injury of the spine. What are the signs or symptoms? Symptoms of this condition include: ? Needing to pee right away. ? Peeing small amounts often. ? Pain or burning when peeing. ? Blood in the pee. ? Pee that smells bad or not like normal. ? Trouble peeing. ? Pee that is cloudy. ? Fluid coming from the vagina, if you are female. ? Pain in the belly or lower back. Other symptoms include: ? Vomiting. ? Not feeling hungry. ? Feeling mixed up (confused). This may be the first symptom in older adults. ? Being tired and grouchy (irritable). ? A fever. ? Watery poop (diarrhea). How is this treated? ? Taking antibiotic medicine. ? Taking other medicines. ? Drinking enough water. In some cases, you may need to see a specialist. Follow these instructions at home: Medicines ? Take [id number] and prescription medicines only as told by your doctor. ? If you were prescribed an antibiotic medicine, take it as told by your doctor. Do not stop taking it even if you start to feel better. General instructions ? Make sure you: ? Pee until your bladder is empty. ? Do not hold pee for a long time. ? Empty your bladder after sex. ? Wipe from front to back after peeing or pooping if you are a female. Use each tissue one time when you wipe. ? Drink enough fluid to keep your pee pale yellow. ? Keep all follow-up visits. Contact a doctor if: ? You do not get better after 1?2 days. ? Your symptoms go away and then come back. Get help right away if: ? You have very bad back pain. ? You have very bad pain in your lower belly. ? You have a fever. ? You have chills. ? You feeling like you will vomit or you vomit. Summary ? A urinary tract infection (UTI) is an infection of any part of the urinary tract. ? This condition is caused by germs in your genital area. ? There are many risk factors for a UTI. ? Treatment includes antibiotic medicines. ? Drink enough fluid to keep your pee pale yellow. This information is not intended to replace advice given to you by your health care provider. Make sure you discuss any questions you have with your health care provider. Document Revised: 04/21/2021 Document Reviewed: 04/21/2021 [employer] Patient Education ? 2022 [employer] [facility] Urology Office/Clinic Noteon 08-21-2023 Urology Office/Clinic Note Chief Complaint Pt is here for 6 month f/u HPI Staff Pt here for a 6 month F/U Previous DX; Recurrent UTI UCX 09/07/22 - 1,000 mixed skin contaminants. Incomplete bladder emptying/* Macrobid was increased from 3x/week to daily for a week until sx cleared. Pt then went back to 3x weekly abx and has continued that since then. PVR (cc): 11/22/21 - 162 08/09/22 - 52 Dysuria: denies Incomplete bladder emptying: denies Hematuria: denies Frequency: mild Urgency: denies Nocturia: denies Stream: steady stream Leaking: denies Post void dripping: denies Wearing pads/ Depends: denies Urge incontinence: denies Stress incontinence: denies Incontinence without Sensory Awareness: denies Abdominal pain: denies Flank pain: denies Sexual complaints: _ History of Present Illness staff HPI reviewed and agree. Review of Systems PHQ Score Initial Depression Screen Score: 0 SCORE no fever, chills, malaise, myalgia. no rash/lesions. no chest pain, palpitations, or SOB. no abdominal pain, nausea, vomiting. no unilateral calf swelling, redness, pain Physical Exam Vitals & Measurements BP: 138/72 HT: 61 in HT: 154 cm WT: 56 kg WT: 123.2 lb BMI: 23.61 General: nontoxic, NAD Mouth: moist mucosa Lungs: normal respiratory effort Cardio: regular rate, good distal perfusion Abdomen: nondistended, no suprapubic distention or tenderness, no CVA tenderness Neurologic: Grossly normal Skin: No rashes or suspicious lesions Assessment/Plan Former Dr. Jauregui pt 1. Recurrent UTI (N30.81: Other cystitis with hematuria) S/p Cysto 02/19/[address] Jauregui. Taking nitrofurantoin 3x/wk and takes probiotics, cranberry extract, and d-mannose to help prevent urinary infections. States she felt she had an infection a few times over the last 6 mos and would take abx bid x3d if she had burning or pain with urination. Advised pt if sxs do not resolve w this, pt to call our office. UA today shows small blood and large leuks. Denies current UTI sxs. Will hold off on sending current urine since asx. BMP 04/15/23 - BUN 21, Cr 1.02, eGFR 57.371 10/19/23 - BUN 9.4, Cr 0.87, eGFR >60 Admits she does not always remember to drink due to busy lifestyle. Reports she does enjoy water but does not think to take fluids with her. 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 Advised pt to slowly titrate up to an increased water intake. Follow up in 6 mo (pt pref) or sooner if needed. Pt understands and agrees with plan. Follow-up With When Contact Information JASS WILLIAMSON, BREANNA Albert, URL [address] [place] [address] [phone] Additional Instructions: 6 mos Patient Education Urinary Tract Infection, Adult, [id number] Documentation recorded by the soham Egan accurately reflects the services(s) I performed and decisions made by me. Authenticated by Breanna Regan PA-C on 08/21/2023 10:39:03. I, Pooja Egan, personally scribed for Breanna Regan PA-C on 08/21/2023 10:37:04. . Problem List/Past Medical History Ongoing Dysuria Incomplete bladder emptying Postinfective urethral stricture in female Recurrent UTI Urinary frequency Urinary urgency Historical No qualifying data Procedure/Surgical History Cystourethroscopy with dilation of urethral stricture (02/19/2019), Cystourethroscopy with dilation of urethral stricture (06/18/2011), Appendectomy, back surgery, Bilateral tubal ligation, Cholecystectomy, Colonoscopy, Release of trigger finger, Removal of ovarian cyst, Tonsillectomy. Medications cranberry oral capsule nitrofurantoin macrocrystals 50 mg Cap Zyrtec Dissolve 10 mg oral tablet, dispersible, 10 mg= 1 tab(s), Oral, Daily, PRN Allergies codeine (Nausea) morphine (Nausea) nicotine (Dyspnea, Headache) sulfa drugs (Itching) traMADol (Dizzy/Light-headed) Social History Alcohol - Denies Alcohol Use, 10/13/2019 Substance Abuse - Denies Substance Abuse, 10/13/2019 Tobacco - Denies Tobacco Use, 10/13/2019 Never (less than 100 in lifetime) Tobacco Use:. Never Smokeless Tobacco Use:., 08/21/2023 Family History Diabetes mellitus type 1: Father. Immunizations Vaccine Date Status tetanus-diphtheria toxoids 03/27/2023 Recorded zoster vaccine live 08/06/2018 Recorded Lab Results Ambulatory Point of Care Results Bilirubin Urine Dipstick: Negative (08/21/23 10:00:00) Blood Urine Dipstick: 1+ Small (08/21/23 10:00:00) Glucose Urine Dipstick: Negative (08/21/23 10:00:00) Ketones Urine Dipstick: Negative (08/21/23 10:00:00) Leukocytes Urine Dipstick: 3+ Large (08/21/23 10:00:00) Nitrite Urine Dipstick: Negative (08/21/23 10:00:00) Protein Urine Dipstick: 1+ (30 mg/dl) (08/21/23 10:00:00) Specific [place] Urine Dipstick: 1.020 (08/21/23 10:00:00) Urine Appearance Urine Dipstick: Clear (08/21/23 10:00:00) Urine Color Urine Dipstick: Yellow (08/21/23 10:00:00) (more content not included)... Normal [facility] Comment on above: Result Comment: Elec tronically Signed By: BREANNA REGAN PA-C\.br\Date and Time Signed: 08/21/23 10:39 EST\.br\Electronically Co-Signed By: Pooja Egan\.br\Date and Time Co-Signed: 08/21/23 10:37 EST A1C with Estimated Average G samiajameson 04-15-2023 Glucose [Mass/Vol] 123 mg/dL Normal [facility] Comment on above: Result Comment: PERF ORMED BY: [place] [address] PATHOLOGIST DRILLING RIG OPERATOR RENAN ALLEN M.D. Performed By: #### C BC, A1C WTH eA, LIPID, CMP #### [address] HbA1c (Bld) [Mass fraction] 5.9 % High 4.3-5.6 [facility] Comment on above: Result Comment: Incr eased risk for diabetes: 5.7 - 6.4 diabetes: >6.4 glycemic control for adults with diabetes: <7.0 Performed By: #### C BC, A1C WTH eA, LIPID, CMP #### [address] Complete Blood Count Auto Di ffon 04-15-2023 Basophils (Bld) [#/Vol] 0.0 10*3/uL Normal 0.0-0.2 [facility] Comment on above: Result Comment: PERF ORMED BY: [place] [address] PATHOLOGIST DRILLING RIG OPERATOR RENAN ALLEN M.D. Performed By: #### C BC, A1C WTH eA, LIPID, CMP #### [address] Basophils/100 WBC (Bld) 0.7 % Normal . [facility] Comment on above: Performed By: #### C BC, A1C WTH eA, LIPID, CMP #### [address] Eosinophils (Bld) [#/Vol] 0.1 10*3/uL Normal 0.0-0.45 [facility] Comment on above: Performed By: #### C BC, A1C WTH eA, LIPID, CMP #### [address] Eosinophils/100 WBC (Bld) 1.9 % Normal . [facility] Comment on above: Performed By: #### C BC, A1C WTH eA, LIPID, CMP #### [address] Erythrocyte distribution width (RBC) [Ratio] 12.9 % Normal 11.9-15.3 [facility] Comment on above: Performed By: #### C BC, A1C WTH eA, LIPID, CMP #### [address] Hematocrit (Bld) [Volume fraction] 41.5 % Normal 34.0-46.4 [facility] Comment on above: Performed By: #### C BC, A1C WTH eA, LIPID, CMP #### [address] Hemoglobin (Bld) [Mass/Vol] 14.0 g/dL Normal 11.8-15.4 [facility] Comment on above: Performed By: #### C BC, A1C WTH eA, LIPID, CMP #### [address] Lymphocytes (Bld) [#/Vol] 1.0 10*3/uL Normal 1.00-4.8 [facility] Comment on above: Performed By: #### C BC, A1C WTH eA, LIPID, CMP #### [address] Lymphocytes/100 WBC (Bld) 32.1 % Normal . [facility] Comment on above: Performed By: #### C BC, A1C WTH eA, LIPID, CMP #### [address] MCH (RBC) [Entitic mass] 31.9 pg Normal 24.7-34.3 [facility] Comment on above: Performed By: #### C BC, A1C WTH eA, LIPID, CMP #### [address] MCV (RBC) [Entitic vol] 94.6 fL Normal 80-100 [facility] Comment on above: Performed By: #### C BC, A1C WTH eA, LIPID, CMP #### [address] Mean Corpuscular HGB Conc 33.7 g/dL Normal 32.0-35.0 [facility] Comment on above: Performed By: #### C BC, A1C WTH eA, LIPID, CMP #### [address] Monocytes (Bld) [#/Vol] 0.3 10*3/uL Normal 0.0-0.8 [facility] Comment on above: Performed By: #### C BC, A1C WTH eA, LIPID, CMP #### [facility] [address] Monocytes/100 WBC (Bld) 9.5 % Normal . [facility] Comment on above: Performed By: #### C BC, A1C WTH eA, LIPID, CMP #### [address] Neutrophils (Bld) [#/Vol] 1.8 10*3/uL Normal 1.8-7.7 [facility] Comment on above: Performed By: #### C BC, A1C WTH eA, LIPID, CMP #### [address] Neutrophils/100 WBC (Bld) 55.8 % Normal . [facility] Comment on above: Performed By: #### C BC, A1C WTH eA, LIPID, CMP #### [address] NRBC% 0.1 /100{WBC} Normal 0-0.5 [facility] Comment on above: Performed By: #### C BC, A1C WTH eA, LIPID, CMP #### [address] Platelet mean volume (Bld) [Entitic vol] 9.2 fL Normal 6.3-10.7 [facility] Comment on above: Performed By: #### C BC, A1C WTH eA, LIPID, CMP #### [place] [address] [place] Platelets (Bld) [#/Vol] 167 10*3/uL Normal 150-450 [facility] Comment on above: Performed By: #### C BC, A1C WTH eA, LIPID, CMP #### [facility] [address] [place] [address] [place] RBC (Bld) [#/Vol] 4.39 10*6/uL Normal 3.60-5.00 [facility] Comment on above: Performed By: #### C BC, A1C WTH eA, LIPID, CMP #### [address] WBC (Bld) [#/Vol] 3.2 10*3/uL Low 3.8-11.6 [facility] Comment on above: Performed By: #### C BC, A1C WTH eA, LIPID, CMP #### [facility] [address] Comprehensive Metabolic Pane german 04-15-2023 Albumin [Mass/Vol] 4.2 g/dL Normal 3.5-5.7 [facility] Comment on above: Performed By: #### C BC, A1C WTH eA, LIPID, CMP #### [facility] [address] Albumin/Globulin [Mass ratio] 1.9 {ratio} Normal [facility] Comment on above: Performed By: #### C BC, A1C WTH eA, LIPID, CMP #### [facility] [address] ALP [Catalytic activity/Vol] 66 U/L Normal 34-104 [facility] Comment on above: Performed By: #### C BC, A1C WTH eA, LIPID, CMP #### [facility] [address] ALT [Catalytic activity/Vol] 15 U/L Normal 7-52 [facility] Comment on above: Performed By: #### C BC, A1C WTH eA, LIPID, CMP #### [facility] [address] Anion gap [Moles/Vol] 9.1 mmol/L Normal 6.0-15.0 [facility] Comment on above: Performed By: #### C BC, A1C WTH eA, LIPID, CMP #### [facility] [address] [place] [address] [place] AST [Catalytic activity/Vol] 23 U/L Normal 13-39 [facility] Comment on above: Performed By: #### C BC, A1C WTH eA, LIPID, CMP #### [facility] [address] [place] [address] [place] Bilirubin [Mass/Vol] 0.5 mg/dL Normal 0.3-1.0 [facility] Comment on above: Performed By: #### C BC, A1C WTH eA, LIPID, CMP #### [facility] [address] Calcium [Mass/Vol] 9.3 mg/dL Normal 8.6-10.3 [facility] Comment on above: Performed By: #### C BC, A1C WTH eA, LIPID, CMP #### [facility] [address] [place] [address] [place] Chloride [Moles/Vol] 107 mmol/L Normal 98-107 [facility] Comment on above: Performed By: #### C BC, A1C WTH eA, LIPID, CMP #### [facility] [address] CO2 [Moles/Vol] 28.9 mmol/L Normal 21.0-31.0 [facility] Comment on above: Performed By: #### C BC, A1C WTH eA, LIPID, CMP #### [facility] [address] [place] [address] [place] Creatinine [Mass/Vol] 1.02 mg/dL Normal 0.60-1.20 [facility] Comment on above: Performed By: #### C BC, A1C WTH eA, LIPID, CMP #### [facility] [address] [place] [address] [place] GFR/1.73 sq M.predicted MDRD (S/P/Bld) [Vol rate/Area] 57.371 mL/min/{1.73_m2} [facility] Comment on above: Performed By: #### C BC, A1C WTH eA, LIPID, CMP #### [facility] [address] [place] [address] [place] Globulin (S) [Mass/Vol] 2.2 g/dL Normal [facility] Comment on above: Performed By: #### C BC, A1C WTH eA, LIPID, CMP #### [facility] [address] [place] [address] [place] Glucose [Mass/Vol] 111 mg/dL High 70-100 [facility] Comment on above: Result Comment: [facility] Glucose Reference Range is dependent on time and content of last meal. Glucose of more than 200 mg/dL in a nonstressed, ambulatory subject supports the diagnosis of Diabetes Mellitus. ADA recommended reference range Performed By: #### C BC, A1C WTH eA, LIPID, CMP #### [facility] [address] Potassium [Moles/Vol] 4.0 mmol/L Normal 3.5-5.1 [facility] Comment on above: Performed By: #### C BC, A1C WTH eA, LIPID, CMP #### [facility] [address] Protein [Mass/Vol] 6.4 g/dL Normal 6.4-8.9 [facility] Comment on above: Performed By: #### C BC, A1C WTH eA, LIPID, CMP #### [facility] [address] Sodium [Moles/Vol] 141 mmol/L Normal 136-145 [facility] Comment on above: Performed By: #### C BC, A1C WTH eA, LIPID, CMP #### [facility] [address] Urea nitrogen [Mass/Vol] 21 mg/dL Normal 7-25 [facility] Comment on above: Performed By: #### C BC, A1C WTH eA, LIPID, CMP #### [facility] [address] Lipid Panelon 04-15-2023 Cholesterol [Mass/Vol] 188 mg/dL Normal 140-200 [facility] Comment on above: Result Comment: Chol less than 200 mg/dl low risk Chol 201-239 mg/dl borderline risk Chol 240 mg/dl and greater high risk Performed By: #### C BC, A1C WTH eA, LIPID, CMP #### [facility] [address] Cholesterol in HDL [Mass/Vol] 56 mg/dL Normal 23-92 [facility] Comment on above: Result Comment: HDL CHOL ATP-III CLASSIFICATION Cardiovascular Risk HDL > or equal to 60 mg/dL LOW HDL < 40 mg/dL HIGH Performed By: #### C BC, A1C WTH eA, LIPID, CMP #### [facility] [address] Cholesterol.total/Dona sterol in HDL [Mass ratio] 3.4 {ratio} Normal <5.0 [facility] Comment on above: Result Comment: PERF ORMED BY: [place] [address] PATHOLOGIST DRILLING RIG OPERATOR RENAN ALLEN M.D. Performed By: #### C BC, A1C WT eA, LIPID, CMP #### [facility] [address] LDL Cholesterol,Calculated 117 mg/dL High 0-100 [facility] Comment on above: Result Comment: LDL ATP III CLASSIFICATION LDL less than 100 mg/dL Optimal LDL 100-129 mg/dL Near or above optimal LDL 130-159 mg/dL Borderline high LDL 160-189 mg/dL High LDL greater than 189 mg/dL Very high Performed By: #### C BC, A1C WT eA, LIPID, CMP #### [facility] [address] Triglyceride w/Reflex 77 mg/dL Normal 0-149 [facility] Comment on above: Result Comment: TRIG ATP III CLASSIFICATION TRIG less than 150 mg/dL Normal TRIG 150-199 mg/dL Borderline high TRIG 200-500 mg/dL High TRIG greater than 500 mg/dL Very high Standard traceable to the Center for Disease Conrtrol and Prevention (CDC) test method. Performed By: #### C BC, A1C WTH eA, LIPID, CMP #### [facility] [address] VLDL CHOLESTEROL 15 mg/dL Normal [facility] Comment on above: Performed By: #### C BC, A1C WTH eA, LIPID, CMP #### [facility] [address] [place] [address] [place] XR nasal bones min 3V*on XR nasal bones min 3V* [facility] [address] [place] [address] [place] [address] XRay Report Signed Patient: Niranjan Ricardo MR#: [id number] : 1950 Acct:[id number] Age/Sex: 72 / F ADM Date: 02/01/23 Loc: XD Room: Type: [facility] Attending Dr: Anand Steinberg DO Copies to: Anand Steinberg DO Ordering Provider: Anand Steinberg DO Date of Service: 02/01/23 XR/XR nasal bones min 3V*: Nasal injury;Nasal pain XR nasal bones min 3V* 02/01/2023 9:34 PM SIGNS AND SYMPTOMS: Injury to face with abrasions over the nasal bones PROTOCOL: Frontal and lateral radiographs of the nasal bones COMPARISON: None FINDINGS: The bones are in anatomic alignment. There is no evidence of fracture. The paranasal sinuses are well-aerated. There is soft tissue swelling over the bridge of the nose. XR/XR nasal bones min 3V* IMPRESSION: No fracture. Soft tissue swelling is noted over the bridge of the nose. Impression dictated by: Valentin Andrade M.D.02/02/2023 2:59 PM Dictation Location: [place] [address] Transcribed By: [facility] 02/02/231458 Dictated By: Valentin Andrade II, MD 02/02/231456 Signed By: 02/02/231458 [facility] XR nasal bones min 3V* [facility] [employer] Other XR nasal bones min 3V* [facility] [employer] Other XR nasal bones min 3V* [address] [place] [address] [employer] Other XR nasal bones min 3V* [place] [address] Located Within [facility] [employer] Other XR nasal bones min 3V* XRay Report [facility] [employer] Other XR nasal bones min 3V* [facility] [employer] Other XR nasal bones min 3V* Patient: Niranjan Ricardo MR#: [id number] Located Within [facility] [employer] Other XR nasal bones min 3V* [id number] No rt [employer] Other XR nasal bones min 3V* : 1950 Acct:[id number] [employer] Other XR nasal bones min 3V* Age/Sex: 72 / F A DM Date: 02/01/23 [employer] Other XR nasal bones min 3V* Loc: XD Room: Typ e: [facility] [employer] Other XR nasal bones min 3V* Attending Dr: Darrick Steinberg DO [employer] Other XR nasal bones min 3V* Copies to: Anand Steinberg, [employer] Other XR nasal bones min 3V* Ordering Provider : Anand Steinberg DO [employer] Other XR nasal bones min 3V* Date of Service: 02/01/23 [employer] Other XR nasal bones min 3V* XR/XR nasal bones min 3V*: Nasal injury;Nasal pain [employer] Other XR nasal bones min 3V* XR nasal bones mi n 3V* 02/01/2023 9:34 PM [employer] Other XR nasal bones min 3V* SIGNS AND SYMPTOM S: Injury to face with abrasions over the nasal bones [employer] Other XR nasal bones min 3V* PROTOCOL: Frontal and lateral radiographs of the nasal bones [employer] Other XR nasal bones min 3V* COMPARISON: None [employer] Other XR nasal bones min 3V* FINDINGS: No [employer] Other XR nasal bones min 3V* The bones are in anatomic alignment. There is no evidence of fracture. The paranasal sinuses are [employer] Other XR nasal bones min 3V* well-aerated. The re is soft tissue swelling over the bridge of the nose. [employer] Other XR nasal bones min 3V* 5 XR/XR nasal bones min 3V* [employer] Other XR nasal bones min 3V* IMPRESSION: N [facility] Other XR nasal bones min 3V* No fracture. [employer] Other XR nasal bones min 3V* Soft tissue swell ing is noted over the bridge of the nose. [employer] Other XR nasal bones min 3V* Impression dictat ed by: Valentin Andrade M.D.02/02/2023 2:59 PM [employer] Other XR nasal bones min 3V* Dictation Locatio n: [facility]13 [employer] Other XR nasal bones min 3V* Transcribed By: Jose DONALDSON 02/02/23 [facility] [employer] Other XR nasal bones min 3V* Dictated By: Valentin Andrade II, MD 02/02/23 [facility] [employer] Other XR nasal bones min 3V* Signed By: No rt [employer] Other XR nasal bones min 3V* 02/02/23 [facility] [employer] Other Patient Educationon 01-25-20 Patient Education Obstetrics and Gynecology Urinary Tract Infection, Adult A urinary tract infection (UTI) is an infection of any part of the urinary tract. The urinary tract includes the kidneys, ureters, bladder, and urethra. These organs make, store, and get rid of urine in the body. An upper UTI affects the ureters and kidneys. A lower UTI affects the bladder and urethra. What are the causes? Most urinary tract infections are caused by bacteria in your genital area around your urethra, where urine leaves your body. These bacteria grow and cause inflammation of your urinary tract. What increases the risk? You are more likely to develop this condition if: ? You have a urinary catheter that stays in place. ? You are not able to control when you urinate or have a bowel movement (incontinence). ? You are female and you: ? Use a spermicide or diaphragm for control. ? Have low estrogen levels. ? Are . ? You have certain genes that increase your risk. ? You are sexually active. ? You take antibiotic medicines. ? You have a condition that causes your flow of urine to slow down, such as: ? An enlarged prostate, if you are male. ? Blockage in your urethra. ? A kidney stone. ? A nerve condition that affects your bladder control (neurogenic bladder). ? Not getting enough to drink, or not urinating often. ? You have certain medical conditions, such as: ? Diabetes. ? A weak disease-fighting system (immunesystem). ? Sickle cell disease. ? Gout. ? Spinal cord injury. What are the signs or symptoms? Symptoms of this condition include: ? Needing to urinate right away (urgency). ? Frequent urination. This may include small amounts of urine each time you urinate. ? Pain or burning with urination. ? Blood in the urine. ? Urine that smells bad or unusual. ? Trouble urinating. ? Cloudy urine. ? Vaginal discharge, if you are female. ? Pain in the abdomen or the lower back. You may also have: ? Vomiting or a decreased appetite. ? Confusion. ? Irritability or tiredness. ? A fever or chills. ? Diarrhea. The first symptom in older adults may be confusion. In some cases, they may not have any symptoms until the infection has worsened. How is this diagnosed? This condition is diagnosed based on your medical history and a physical exam. You may also have other tests, including: ? Urine tests. ? Blood tests. ? Tests for STIs (sexually transmitted infections). If you have had more than one UTI, a cystoscopy or imaging studies may be done to determine the cause of the infections. How is this treated? Treatment for this condition includes: ? Antibiotic medicine. ? Oxbd-fms-rrdburx medicines to treat discomfort. ? Drinking enough water to stay hydrated. If you have frequent infections or have other conditions such as a kidney stone, you may need to see a health care provider who specializes in the urinary tract (urologist). In rare cases, urinary tract infections can cause sepsis. Sepsis is a life-threatening condition that occurs when the body responds to an infection. Sepsis is treated in the hospital with IV antibiotics, fluids, and other medicines. Follow these instructions at home: Medicines ? Take esvv-fds-xgwfdwp and prescription medicines only as told by your health care provider. ? If you were prescribed an antibiotic medicine, take it as told by your health care provider. Do not stop using the antibiotic even if you start to feel better. General instructions ? Make sure you: ? Empty your bladder often and completely. Do not hold urine for long periods of time. ? Empty your bladder after sex. ? Wipe from front to back after urinating or having a bowel movement if you are female. Use each tissue only one time when you wipe. ? Drink enough fluid to keep your urine pale yellow. ? Keep all follow-up visits. This is important. Contact a health care provider if: ? Your symptoms do not get better after 1?2 days. ? Your symptoms go away and then return. Get help right away if: ? You have severe pain in your back or your lower abdomen. ? You have a fever or chills. ? You have nausea or vomiting. Summary ? A urinary tract infection (UTI) is an infection of any part of the urinary tract, which includes the kidneys, ureters, bladder, and urethra. ? Most urinary tract infections are caused by bacteria in your genital area. ? Treatment for this condition often includes antibiotic medicines. ? If you were prescribed an antibiotic medicine, take it as told by your health care provider. Do not stop using the antibiotic even if you start to feel better. ? Keep all follow-up visits. This is important. This information is not intended to replace advice given to you by your health care provider. Make sure you discuss any questions you have with your health care provider. Document Revised: 04/21/2021 Document Revie (more content not included)... Normal [facility] Urology Office/Clinic Noteon 01-24-2023 Urology Office/Clinic Note Chief Complaint pt here for a 6 month f/u HPI Staff Pt is a 72 yr old Female here today for a 6month f/u. Pts previous DX: dysuria, incomplete bladder emptying, postinfective urethral stricture in female, recurrent UTI, urinary frequency, urinary urgency. S/P cysto UD 5/30/19. Dysuria: denies Incomplete bladder emptying: yes Hematuria: denies visible, UA shows small Frequency: sometimes, mostly in the morning Urgency: denies Nocturia: 0x Stream: short stream Leaking: denies Post void dripping: denies Wearing pads/ Depends: denies Urge incontinence: denies Stress incontinence: denies Incontinence without Sensory Awareness: denies Abdominal pain: denies Flank pain: denies Sexual complaints: _ History of Present Illness staff HPI reviewed and agree. Tests Reviewed: Reviewed UA. Review of Systems PHQ Score Initial Depression Screen Score: 0 no fever, chills, malaise, myalgia. no rash/lesions. no chest pain, palpitations, or SOB. no abdominal pain, nausea, vomiting. no unilateral calf swelling, redness, pain Physical Exam Vitals & Measurements HR: 63(Peripheral) BP: 118/75 HT: 61 in HT: 154 cm WT: 56.9 kg WT: 125.18 lb BMI: 23.99 General: nontoxic, NAD Mouth: moist mucosa Lungs: normal respiratory effort Cardio: regular rate, good distal perfusion Abdomen: nondistended, no suprapubic distention or tenderness, no CVA tenderness Neurologic: Grossly normal Skin: No rashes or suspicious lesions Assessment/Plan 1. Recurrent UTI (N30.81: Other cystitis with hematuria) Pt called in Aug 2022 c/o UTI like sxs (strong urine, dysuria, L sided lower back pain, cloudy urine). So Macrobid was increased from 3x/week to daily for a week until sx cleared. Pt then went back to 3x weekly abx and has continued that since then. No additional UTIs since that time. UCX 09/07/22 - 1,000 mixed skin contaminants. UA today shows small blood, + nitrites, and trace leuks. Pt is asx, no indication for cx/tx. Taking cranberry and d-mannose supplements. Was taking keto supplements for weight loss which pt thinks was causing her dysuria bc it stopped when she stopped the supplement. Follow up 6 mos or sooner if needed. Pt understands and agrees with plan. 2. Incomplete bladder emptying (R39.14: Feeling of incomplete bladder emptying) PVR (cc): 11/22/21 - 162 08/09/22 - 52 Follow-up With When Contact Information JASS WILLIAMSON, BREANNA Albert, URL [address] [place] [address] Additional Instructions: 6 mos no labs Patient Education Urinary Tract Infection, Adult Documentation recorded by the ramonibesther Villagomez accurately reflects the services(s) I performed and decisions made by me. Authenticated by Breanna Regan PA-C on 01/24/2023 10:26:09. I, More Villagomez, personally scribed for LISA Sifuentes on 01/24/2023 09:51:00. . Problem List/Past Medical History Ongoing Dysuria Incomplete bladder emptying Postinfective urethral stricture in female Recurrent UTI Urinary frequency Urinary urgency Historical No qualifying data Procedure/Surgical History Cystourethroscopy with dilation of urethral stricture (02/19/2019), Cystourethroscopy with dilation of urethral stricture (06/18/2011), Appendectomy, back surgery, Bilateral tubal ligation, Cholecystectomy, Colonoscopy, Release of trigger finger, Removal of ovarian cyst, Tonsillectomy. Medications cranberry oral capsule nitrofurantoin macrocrystals 50 mg Cap, 50 mg= 1 cap(s), Oral, MonWedFri, 3 refills Zyrtec Dissolve 10 mg oral tablet, dispersible, 10 mg= 1 tab(s), Oral, Daily, PRN Allergies codeine (Nausea) morphine (Nausea) nicotine (Dyspnea, Headache) sulfa drugs (Itching) traMADol (Dizzy/Light-headed) Social History Alcohol - Denies Alcohol Use, 10/13/2019 Substance Abuse - Denies Substance Abuse, 10/13/2019 Tobacco - Denies Tobacco Use, 10/13/2019 Never (less than 100 in lifetime) Tobacco Use:. Never Smokeless Tobacco Use:., 01/24/2023 Family History Diabetes mellitus type 1: Father. Immunizations Vaccine Date Status zoster vaccine live 08/06/2018 Recorded Lab Results Ambulatory Point of Care Results Bilirubin Urine Dipstick: Negative (01/24/23 09:25:00) Blood Urine Dipstick: 1+ Small (01/24/23 09:25:00) Glucose Urine Dipstick: Negative (01/24/23 09:25:00) Ketones Urine Dipstick: Negative (01/24/23 09:25:00) Leukocytes Urine Dipstick: Trace (01/24/23 09:25:00) Nitrite Urine Dipstick: Positive (01/24/23 09:25:00) Protein Urine Dipstick: 1+ (30 mg/dl) (01/24/23 09:25:00) Specific [place] Urine Dipstick: 1.020 (01/24/23 09:25:00) Urine Appearance Urine Dipstick: Clear (01/24/23:25:00) Urine Color Urine Dipstick: Yellow (01/24/23 09:25:00) Urobilinogen Urine Dipstick: Normal 0.2-1 EU/dl (01/24/23 09:25:00) pH Urine Dipstick: 6.5 (01/24/23 09:25:00) Normal [facility] Comment on above: Result Comment: Elec tronically Signed By: BREANNA REGAN PA-C\.br\Date and Time Signed: 01/24/23 10:26 EDT\.br\Electronically Co-Signed By: More Villagomez\.br\Date and Time Co-Signed: 01/24/23 09:51 EDT AMBAROV[facility]erva 11-21-2022 CNOV Office Visit (CAMILA ) NIRANJAN RICARDO ([id number]) 1950 F Date Time Provider Department 11/21/22 2:30 PM ISMA KWON During your visit today, we recorded the following information about you: Isma Kwon PA-C 11/21/2022 2:51 PM Signed The patient is sent for evaluation and an opinion regarding treatment by , who will receive a copy of this report by mail or through the shared medical record. CHIEF COMPLAINT: Niranjan Ricardo is a 72 year old female who presents today for new evaluation of bilateral middle finger trigger fingers. 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 She mentions that the left finger has been going on for about a year and a right finger for a few months. Left fingers worse than right. She states that this is very bothersome and painful especially when they lock. 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 She has not had any treatment for this but has a history of bilateral trigger thumb which were treated with surgery in the 's. Previous treatment or work-up includes: as above. ROS: REVIEW OF SYSTEMS: Constitutional: Fever/chills: Yes Cardiovascular: Chest Pain: No Respiratory: SOB: No Musculoskeletal: as noted in the HPI Neurologic: as noted in the HPI Endocrine: Diabetes: - Tobacco user? No SOCIAL HISTORY: Tobacco Use: Not on file FAMILY HISTORY: No family history on file. PAST MEDICAL HISTORY Diagnosis Date NEGATIVE MEDICAL HISTORY No pneumo, tb, dm, heart and ca PAST SURGICAL HISTORY Procedure Laterality Date CHOLECYSTECTOMY HX 1972 OTHER 2011 Neck Surgery OTHER 2007 Back Surgery No family history on file. ALLERGIES Allergen Reactions Codeine GI Upset Nicotine Other: See Comments throat hoarse; light headed; H/A's Sulfa (Sulfonamide * Itching Current Outpatient Medications Medication Sig Dispense Refill fluticasone (FLONASE) 50 mcg/actuation nasal spray Use 1 [place] in each nostril daily at bedtime. No current facility-administered medications for this visit. Physical Exam: Vitals: There were no vitals taken for this visit. Body Habitus:well nourished and no acute distress Orientation: Normal: Oriented to person, place and time Psych: normal and appropriate Skin: Color, texture, turgor normal. No rashes or lesions Sensation: sensation to light touch is grossly normal bilaterally Bilateral hand: Examination of bilateral hands skin is intact with no erythema, swelling or ecchymosis. There is positive tenderness and crepitus at bilateral middle fingers A1 pulleys. Negative tenderness or crepitus at any of the other A1 pulleys bilaterally. Sensation on the ulnar, median, radial nerve distributions are intact bilaterally. AIN, PIN, ulnar motor intact bilaterally. Able to make full fist. IMAGING: Final results and radiologist's interpretation, available in the [facility] health record. Images were reviewed with the patient/family members in the office today. 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 No acute fractures or dislocations. Left middle finger with moderate MP, PIP and DIP joint DJD changes. No acute fractures or dislocations noted. Other Tests: none Assessment: (M65.332) Trigger finger, left middle finger (primary encounter diagnosis) (M65.321) Trigger index finger of right hand Plan: Above diagnosis was discussed in detail with the patient today. I explained to her that there is a 2 out of 3 chances that a couple of steroid injections that spaced out in 6 weeks will help alleviate her symptoms. She agreed to do injections today to both middle fingers. I will have her follow-up in 6 weeks for possible repeat injections. Additional Injections: bilateral long A1 for trigger finger Informed Consent Consent Obtained: Verbal [place] Protocol A moment to CARE was completed. SIGN IN Personnel directly involved with the procedure wore the appropriate PPE. Special Equipment: Yes Patient/Surrogate Stated/Verified: Patient name, Date of , Relevant allergies and Intended procedure TIME OUT Intended patient and procedure match the source document(s). Consent documented and matches the intended procedure. Relevant labs, photos, and/or imaging studies have been reviewed. Correct side/site marked and visible. Medications required for proc (more content not included)... Normal [facility] XR DIGIT 3V FRONTAL/LAT/OBL LTon 11-21-2022 XR DIGIT 3V FRONTAL/LAT/OBL LT * * *Final Report* * * DATE OF EXAM: Nov 21 2022 2:07PM [id number] - XR DIGIT 3V FRONTAL/LAT/OBL LT / PROCEDURE REASON: Pain * * * * Physician Interpretation * * * * X-RAYS LEFT 3RD DIGIT (LONG FINGER) HISTORY: LEFT FINGER TRIGGER. Pain TECHNIQUE: 3 views COMPARISON: 03/02/2019 and x-rays RESULT: Moderate osteoarthritis at the 3rd digit (long finger) DIP joint. This is mildly progressed from 03/02/2019. Minimal degenerative change at the 3rd MCP joint. No fracture or dislocation. 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 Business Services Assistant: CARMELINA Transcribe Date/Time: Nov 21 2022 2:08P Dictated by : EDGAR WOMACK MD This examination was interpreted and the report reviewed and electronically signed by: EDGAR WOMACK MD on Nov 21 2022 2:10PM EST [id number] Normal [facility] XR DIGIT 3V FRONTAL/LAT/OBL RTon 11-21-2022 XR DIGIT 3V FRONTAL/LAT/OBL RT * * *Final Report* * * DATE OF EXAM: Nov 21 2022 2:07PM [id number] - XR DIGIT 3V FRONTAL/LAT/OBL RT / PROCEDURE REASON: Pain * * * * Physician Interpretation * * * * X-RAYS RIGHT 3RD DIGIT (LONG FINGER) HISTORY: right middle finger trigger. Pain TECHNIQUE: 3 views COMPARISON: 03/02/2019 hand x-rays RESULT: Moderate osteoarthritis right 3rd digit (long finger) DIP joint with prominent osteophyte dorsal aspect of the base of the distal phalanx at the extensor tendon insertion. There is mild degenerative change at the PIP joint and moderate degenerative change at the MCP joint with osteophyte formation. Findings are mildly progressed from 03/02/2019. No acute fracture or dislocation. IMPRESSION: Osteoarthritis right 3rd digit (long finger), moderate at the MCP and DIP joints. Business Services Assistant: CARMELINA Transcribe Date/Time: Nov 21 2022 2:10P Dictated by : EDGAR WOMACK MD This examination was interpreted and the report reviewed and electronically signed by: EDGAR WOMACK MD on Nov 21 2022 2:12PM EST [id number] Normal [facility] A1C with Estimated Average G samiajameson 10-04-2022 Glucose [Mass/Vol] 120 mg/dL Normal [facility] Comment on above: Order Comment: Reaso n for Exam Hyperglycemia Result Comment: PERF ORMED BY: [facility] [address] [place] [address] PATHOLOGIST DRILLING RIG OPERATOR RENAN ALLEN M.D. Performed By: #### A 1C [facility] eA #### [facility] [address] HbA1c (Bld) [Mass fraction] 5.8 % High 4.3-5.6 [facility] Comment on above: Order Comment: Reaso n for Exam Hyperglycemia Result Comment: Incr eased risk for diabetes: 5.7 - 6.4 diabetes: >6.4 glycemic control for adults with diabetes: <7.0 Performed By: #### A 1C [facility] eA #### [facility] [address] [place] [address] [place] Albumin [Mass/volume] in Ser um or PlasmaOrdered By: Anand Steinberg on 10-04-2022 Albumin [Mass/Vol] 4.0 g/dL 3.2-5.5 [facility] Basophils Auto (Bld) [#/Vol] Ordered By: Anand Steinberg on 10-04-2022 Basophils (Bld) [#/Vol] 0.0 10*3/uL 0.0-0.2 [facility] Basophils/100 WBC Auto (Bld) Ordered By: Anand Steinberg on 10-04-2022 Basophils/100 WBC (Bld) 0.3 % . [facility] Cholesterol [Mass/volume] in Serum or PlasmaOrdered By: Anand Steinberg on 10-04-2022 Cholesterol [Mass/Vol] 191 mg/dL 140-200 [facility] Comment on above: Chol less than 200 m g/dl low riskChol 201-239 mg/dl borderline riskChol 240 mg/dl and greater high risk Cholesterol in LDL Calc [Mas s/Vol]Ordered By: Anand Steinberg on 10-04-2022 Cholesterol in LDL [Mass/Vol] 124 mg/dL 0-100 [facility] Comment on above: LDL ATP III CLASSIFI CATIONLDL less than 100 mg/dL OptimalLDL 100-129 mg/dL Near or above optimalLDL 130-159 mg/dL Borderline highLDL 160-189 mg/dL HighLDL greater than 189 mg/dL Very high Cholesterol in VLDL Calc [Ma ss/Vol]Ordered By: Anand Steinberg on 10-04-2022 Cholesterol in VLDL [Mass/Vol] 9 mg/dL [facility] Complete Blood Count Auto Di ffon 10-04-2022 Basophils (Bld) [#/Vol] 0.0 10*3/uL Normal 0.0-0.2 [facility] Comment on above: Order Comment: Reaso n for Exam Leukopenia Result Comment: PERF ORMED BY: [place] [address] PATHOLOGIST DRILLING RIG OPERATOR RENAN ALLEN M.D. Performed By: #### C BC #### [facility] [address] Basophils/100 WBC (Bld) 0.3 % Normal . [facility] Comment on above: Order Comment: Reaso n for Exam Leukopenia Performed By: #### C BC #### [address] Eosinophils (Bld) [#/Vol] 0.1 10*3/uL Normal 0.0-0.45 [facility] Comment on above: Order Comment: Reaso n for Exam Leukopenia Performed By: #### C BC #### [address] Eosinophils/100 WBC (Bld) 1.8 % Normal . [facility] Comment on above: Order Comment: Reaso n for Exam Leukopenia Performed By: #### C BC #### [address] Erythrocyte distribution width (RBC) [Ratio] 12.7 % Normal 11.9-15.3 [facility] Comment on above: Order Comment: Reaso n for Exam Leukopenia Performed By: #### C BC #### [address] Hematocrit (Bld) [Volume fraction] 43.7 % Normal 34.0-46.4 [facility] Comment on above: Order Comment: Reaso n for Exam Leukopenia Performed By: #### C BC #### [place] [address] [place] Hemoglobin (Bld) [Mass/Vol] 14.4 g/dL Normal 11.8-15.4 [facility] Comment on above: Order Comment: Reaso n for Exam Leukopenia Performed By: #### C BC #### [address] Lymphocytes (Bld) [#/Vol] 1.3 10*3/uL Normal 1.00-4.8 [facility] Comment on above: Order Comment: Reaso n for Exam Leukopenia Performed By: #### C BC #### [address] Lymphocytes/100 WBC (Bld) 39.9 % Normal . [facility] Comment on above: Order Comment: Reaso n for Exam Leukopenia Performed By: #### C BC #### [address] MCH (RBC) [Entitic mass] 31.0 pg Normal 24.7-34.3 [facility] Comment on above: Order Comment: Reaso n for Exam Leukopenia Performed By: #### C BC #### [address] MCV (RBC) [Entitic vol] 94.3 fL Normal 80-100 [facility] Comment on above: Order Comment: Reaso n for Exam Leukopenia Performed By: #### C BC #### [address] Mean Corpuscular HGB Conc 32.8 g/dL Normal 32.0-35.0 [facility] Comment on above: Order Comment: Reaso n for Exam Leukopenia Performed By: #### C BC #### [facility] [address] [place] [address] [place] Monocytes (Bld) [#/Vol] 0.3 10*3/uL Normal 0.0-0.8 [facility] Comment on above: Order Comment: Reaso n for Exam Leukopenia Performed By: #### C BC #### [place] [address] [place] Monocytes/100 WBC (Bld) 9.7 % Normal . [facility] Comment on above: Order Comment: Reaso n for Exam Leukopenia Performed By: #### C BC #### [facility] [address] [place] [address] [place] Neutrophils (Bld) [#/Vol] 1.6 10*3/uL Low 1.8-7.7 [facility] Comment on above: Order Comment: Reaso n for Exam Leukopenia Performed By: #### C BC #### [facility] [address] [place] [address] [place] Neutrophils/100 WBC (Bld) 48.3 % Normal . [facility] Comment on above: Order Comment: Reaso n for Exam Leukopenia Performed By: #### C BC #### [address] NRBC% 0.1 /100{WBC} Normal 0-0.5 [facility] Comment on above: Order Comment: Reaso n for Exam Leukopenia Performed By: #### C BC #### [facility] [address] Platelet mean volume (Bld) [Entitic vol] 9.0 fL Normal 6.3-10.7 [facility] Comment on above: Order Comment: Reaso n for Exam Leukopenia Performed By: #### C BC #### [place] [address] [place] Platelets (Bld) [#/Vol] 183 10*3/uL Normal 150-450 [facility] Comment on above: Order Comment: Reaso n for Exam Leukopenia Performed By: #### C BC #### [facility] [address] [place] [address] [place] RBC (Bld) [#/Vol] 4.64 10*6/uL Normal 3.60-5.00 [facility] Comment on above: Order Comment: Reaso n for Exam Leukopenia Performed By: #### C BC #### [facility] [address] [place] [id number] [place] WBC (Bld) [#/Vol] 3.3 10*3/uL Low 3.8-11.6 [facility] Comment on above: Order Comment: Reaso n for Exam Leukopenia Performed By: #### C BC #### [facility] [address] Comprehensive Metabolic Pane german 10-04-2022 Albumin [Mass/Vol] 4.0 g/dL Normal 3.2-5.5 [facility] Comment on above: Order Comment: Reaso n for Exam [facility] use of drug Reason for Exam Hyperlipidemia Reason for Exam Weight loss Performed By: #### L IPID, TSH3, CMP #### [facility] [address] Albumin/Globulin [Mass ratio] 1.7 {ratio} Normal [facility] Comment on above: Order Comment: Reaso n for Exam intermission coordinator use of drug Reason for Exam Hyperlipidemia Reason for Exam Weight loss Performed By: #### L IPID, TSH3, CMP #### [facility] [address] [place] [id number] [place] ALP [Catalytic activity/Vol] 70 U/L Normal 32-92 [facility] Comment on above: Order Comment: Reaso n for Exam intermission coordinator use of drug Reason for Exam Hyperlipidemia Reason for Exam Weight loss Performed By: #### L IPID, TSH3, CMP #### [facility] [address] [place] [id number] [place] ALT [Catalytic activity/Vol] 15 U/L Normal 10-60 [facility] Comment on above: Order Comment: Reaso n for Exam intermission coordinator use of drug Reason for Exam Hyperlipidemia Reason for Exam Weight loss Performed By: #### L IPID, TSH3, CMP #### [facility] [address] [place] [address] [place] Anion gap [Moles/Vol] 10.2 mmol/L Normal 6.0-15.0 [facility] Comment on above: Order Comment: Reaso n for Exam intermission coordinator use of drug Reason for Exam Hyperlipidemia Reason for Exam Weight loss Performed By: #### L IPID, TSH3, CMP #### [facility] [address] [place] [address] [place] AST [Catalytic activity/Vol] 23 U/L Normal 10-42 [facility] Comment on above: Order Comment: Reaso n for Exam intermission coordinator use of drug Reason for Exam Hyperlipidemia Reason for Exam Weight loss Performed By: #### L IPID, TSH3, CMP #### [facility] [address] Bilirubin [Mass/Vol] 0.4 mg/dL Normal 0.3-1.2 [facility] Comment on above: Order Comment: Reaso n for Exam intermission coordinator use of drug Reason for Exam Hyperlipidemia Reason for Exam Weight loss Performed By: #### L IPID, TSH3, CMP #### [facility] [address] Calcium [Mass/Vol] 9.4 mg/dL Normal 8.2-10.2 [facility] Comment on above: Order Comment: Reaso n for Exam [facility] use of drug Reason for Exam Hyperlipidemia Reason for Exam Weight loss Performed By: #### L IPID, TSH3, CMP #### [facility] [address] Chloride [Moles/Vol] 103 mmol/L Normal 95-114 [facility] Comment on above: Order Comment: Reaso n for Exam [facility] use of drug Reason for Exam Hyperlipidemia Reason for Exam Weight loss Performed By: #### L IPID, TSH3, CMP #### [facility] [address] CO2 [Moles/Vol] 26.8 mmol/L Normal 22.0-30.0 [facility] Comment on above: Order Comment: Reaso n for Exam [facility] use of drug Reason for Exam Hyperlipidemia Reason for Exam Weight loss Performed By: #### L IPID, TSH3, CMP #### [facility] [address] Creatinine [Mass/Vol] 0.92 mg/dL Normal 0.44-1.03 [facility] Comment on above: Order Comment: Reaso n for Exam intermission coordinator use of drug Reason for Exam Hyperlipidemia Reason for Exam Weight loss Performed By: #### L IPID, TSH3, CMP #### [facility] [address] Estimated GFR ( Alana > 60 [facility] Comment on above: Order Comment: Reaso n for Exam [facility] use of drug Reason for Exam Hyperlipidemia Reason for Exam Weight loss Result Comment: GFR estimated reference range: According to KDOQI guidelines, <60 ml/min/1.73m2 is sufficient to diagnose a patient with chronic kidney disease. Performed By: #### L IPID, TSH3, CMP #### [facility] [address] Estimated GFR (Non- Am 60 [facility] Comment on above: Order Comment: Reaso n for Exam [facility] use of drug Reason for Exam Hyperlipidemia Reason for Exam Weight loss Performed By: #### L IPID, TSH3, CMP #### [facility] [address] Globulin (S) [Mass/Vol] 2.4 g/dL Normal [facility] Comment on above: Order Comment: Reaso n for Exam [facility] use of drug Reason for Exam Hyperlipidemia Reason for Exam Weight loss Performed By: #### L IPID, TSH3, CMP #### [facility] [address] [place] [address] Glucose [Mass/Vol] 101 mg/dL High 70-100 [facility] Comment on above: Order Comment: Reaso n for Exam [facility] use of drug Reason for Exam Hyperlipidemia Reason for Exam Weight loss Result Comment: [place] Glucose Reference Range is dependent on time and content of last meal. Glucose of more than 200 mg/dL in a nonstressed, ambulatory subject supports the diagnosis of Diabetes Mellitus. ADA recommended reference range Performed By: #### L IPID, TSH3, CMP #### [facility] [address] [place] [address] Potassium [Moles/Vol] 4.0 mmol/L Normal 3.5-5.1 [facility] Comment on above: Order Comment: Reaso n for Exam intermission coordinator use of drug Reason for Exam Hyperlipidemia Reason for Exam Weight loss Performed By: #### L IPID, TSH3, CMP #### [facility] [address] Protein [Mass/Vol] 6.4 g/dL Normal 6.1-7.9 [facility] Comment on above: Order Comment: Reaso n for Exam intermission coordinator use of drug Reason for Exam Hyperlipidemia Reason for Exam Weight loss Performed By: #### L IPID, TSH3, CMP #### [facility] [address] Sodium [Moles/Vol] 136 mmol/L Normal 136-146 [facility] Comment on above: Order Comment: Reaso n for Exam intermission coordinator use of drug Reason for Exam Hyperlipidemia Reason for Exam Weight loss Performed By: #### L IPID, TSH3, CMP #### [facility] [address] [place] [address] [place] Urea nitrogen [Mass/Vol] 18 mg/dL Normal 9-23 [facility] Comment on above: Order Comment: Reaso n for Exam [facility] use of drug Reason for Exam Hyperlipidemia Reason for Exam Weight loss Performed By: #### L IPID, TSH3, CMP #### [facility] [address] Creatinine and Glomerular fi ltration rate.predicted panel (S/P/Bld)Ordered By: Anand Steinberg on 10-04-2022 Creatinine [Mass/Vol] 0.92 mg/dL 0.44-1.03 [facility] Eosinophils Auto (Bld) [#/Vo l]Ordered By: Anand Steinberg on 10-04-2022 Eosinophils (Bld) [#/Vol] 0.1 10*3/uL 0.0-0.45 [facility] Eosinophils/100 WBC Auto (Bl d)Ordered By: Anand Steinberg on 10-04-2022 Eosinophils/100 WBC (Bld) 1.8 % . [facility] Erythrocyte distribution wid th Auto (RBC) [Ratio]Ordered By: Anand Steinberg on 10-04-2022 Erythrocyte distribution width (RBC) [Ratio] 12.7 % 11.9-15.3 [facility] Estimated glomerular filtrat ion rate (GFR) non- AmericanOrdered By: Anand Steinberg on 10-04-2022 GFR/1.73 sq M.predicted among non-blacks MDRD (S/P/Bld) [Vol rate/Area] 60 mL/Min [facility] Globulin Calc (S) [Mass/Vol] Ordered By: Anand Steinberg on 10-04-2022 Globulin (S) [Mass/Vol] 2.4 g/dL [facility] Hematocrit Auto (Bld) [Volum e fraction]Ordered By: Anand Steinberg on 10-04-2022 Hematocrit (Bld) [Volume fraction] 43.7 % 34.0-46.4 [facility] Hemoglobin [Mass/volume] in BloodOrdered By: Anand Steinberg on 10-04-2022 Hemoglobin (Bld) [Mass/Vol] 14.4 g/dL 11.8-15.4 [facility] Leukocytes [#/volume] correc myrna for nucleated erythrocytes in Blood by Automated counOrdered By: Anand Steinberg on 10-04-2022 WBC corrected for nucl RBC Auto (Bld) [#/Vol] 3.3 10*3/uL 3.8-11.6 [facility] Lipid Panelon 10-04-2022 Cholesterol [Mass/Vol] 191 mg/dL Normal 140-200 [facility] Comment on above: Order Comment: Reaso n for Exam intermission coordinator use of drug Reason for Exam Hyperlipidemia Reason for Exam Weight loss Result Comment: Chol less than 200 mg/dl low risk Chol 201-239 mg/dl borderline risk Chol 240 mg/dl and greater high risk Performed By: #### L IPID, TSH3, CMP #### [facility] [address] [place] [id number] [place] Cholesterol in HDL [Mass/Vol] 57 mg/dL Normal 35-85 [facility] Comment on above: Order Comment: Reaso n for Exam [facility] use of drug Reason for Exam Hyperlipidemia Reason for Exam Weight loss Result Comment: HDL CHOL ATP-III CLASSIFICATION Cardiovascular Risk HDL > or equal to 60 mg/dL LOW HDL < 40 mg/dL HIGH Performed By: #### L IPID, TSH3, CMP #### [facility] [address] [id number] [facility] Cholesterol.total/Dona sterol in HDL [Mass ratio] 3.4 {ratio} Normal <5.0 [facility] Comment on above: Order Comment: Reaso n for Exam intermission coordinator use of drug Reason for Exam Hyperlipidemia Reason for Exam Weight loss Performed By: #### L IPID, TSH3, CMP #### [facility] [address] LDL Cholesterol,Calculated 124 mg/dL High 0-100 [facility] Comment on above: Order Comment: Reaso n for Exam intermission coordinator use of drug Reason for Exam Hyperlipidemia Reason for Exam Weight loss Result Comment: LDL ATP III CLASSIFICATION LDL less than 100 mg/dL Optimal LDL 100-129 mg/dL Near or above optimal LDL 130-159 mg/dL Borderline high LDL 160-189 mg/dL High LDL greater than 189 mg/dL Very high Performed By: #### L IPID, TSH3, CMP #### [facility] [address] Triglyceride w/Reflex 49 mg/dL Normal 35-149 [facility] Comment on above: Order Comment: Reaso n for Exam [facility] use of drug Reason for Exam Hyperlipidemia Reason for Exam Weight loss Result Comment: TRIG ATP III CLASSIFICATION TRIG less than 150 mg/dL Normal TRIG 150-199 mg/dL Borderline high TRIG 200-500 mg/dL High TRIG greater than 500 mg/dL Very high Standard traceable to the Center for Disease Conrtrol and Prevention (CDC) test method. Performed By: #### L IPID, TSH3, CMP #### [facility] [address] [place] [address] VLDL CHOLESTEROL 9 mg/dL Normal [facility] Comment on above: Order Comment: Reaso n for Exam intermission coordinator use of drug Reason for Exam Hyperlipidemia Reason for Exam Weight loss Performed By: #### L IPID, TSH3, CMP #### [facility] [address] [place] [address] [place] Lymphocytes Auto (Bld) [#/Vo l]Ordered By: Anand Steinberg on 10-04-2022 Lymphocytes (Bld) [#/Vol] 1.3 10*3/uL 1.00-4.8 [facility] Lymphocytes/100 WBC Auto (Bl d)Ordered By: Anand Steinberg on 10-04-2022 Lymphocytes/100 WBC (Bld) 39.9 % . [facility] MCH Auto (RBC) [Entitic mass ]Ordered By: Anand Steinberg on 10-04-2022 MCH (RBC) [Entitic mass] 31.0 pg 24.7-34.3 [facility] MCHC Auto (RBC) [Mass/Vol]Or dered By: Anand Steinberg on 10-04-2022 MCHC (RBC) [Mass/Vol] 32.8 g/dL 32.0-35.0 [facility] MCV Auto (RBC) [Entitic vol] Ordered By: Anand Steinberg on 10-04-2022 MCV (RBC) [Entitic vol] 94.3 fL 80-100 [facility] Monocytes Auto (Bld) [#/Vol] Ordered By: Anand Steinberg on 10-04-2022 Monocytes (Bld) [#/Vol] 0.3 10*3/uL 0.0-0.8 [facility] Monocytes/100 WBC Auto (Bld) Ordered By: Anand Steinberg on 10-04-2022 Monocytes/100 WBC (Bld) 9.7 % . [facility] Neutrophils Auto (Bld) [#/Vo l]Ordered By: Anand Steinberg on 10-04-2022 Neutrophils (Bld) [#/Vol] 1.6 10*3/uL 1.8-7.7 [facility] Neutrophils/100 WBC Auto (Bl d)Ordered By: Anand Steinberg on 10-04-2022 Neutrophils/100 WBC (Bld) 48.3 % . [facility] No Panel InformationOrdered By: Anand Steinberg on 10-04-2022 Estimated GFR () > 60 mL/Min [facility] Comment on above: GFR estimated refere nce range: According to KDOQI guidelines, <60 ml/min/1.73m2 is sufficient to diagnose a patient with chronic kidney disease. Pharmacy Creatinine Clearance (Chem N/A [facility] Nucleated erythrocytes [Pres ence] in Blood by Automated countOrdered By: Anand Steinberg on 10-04-2022 Nucleated RBC Auto Ql (Bld) 0.1 /100{WBC} 0-0.5 [facility] Platelet mean volume Auto (B ld) [Entitic vol]Ordered By: Anand Steinberg on 10-04-2022 Platelet mean volume (Bld) [Entitic vol] 9.0 fL 6.3-10.7 [facility] Platelets Auto (Bld) [#/Vol] Ordered By: Anand Steinberg on 10-04-2022 Platelets (Bld) [#/Vol] 183 10*3/uL 150-450 [facility] Protein [Mass/volume] in Ser um or PlasmaOrdered By: Anand Steinberg on 10-04-2022 Protein [Mass/Vol] 6.4 g/dL 6.1-7.9 [facility] RBC Auto (Bld) [#/Vol]Ordere d By: Anand Steinberg on 10-04-2022 RBC (Bld) [#/Vol] 4.64 10*6/uL 3.60-5.00 [facility] Serum or plasma alanine lopez otransferase measurement without P-5'-P (enzymatic activiOrdered By: Anand Steinberg on 10-04-2022 ALT No additional P-5'-P [Catalytic activity/Vol] 15 U/L 10-60 [facility] Serum or plasma albumin/glob ulin mass ratioOrdered By: Anand Steinberg on 10-04-2022 Albumin/Globulin [Mass ratio] 1.7 {ratio} [facility] Serum or plasma alkaline bart sphatase measurement (enzymatic activity/volume)Ordered By: Anand Steinberg on 10-04-2022 ALP [Catalytic activity/Vol] 70 U/L 32-92 [facility] Serum or plasma anion gap de terminationOrdered By: Anand Steinberg on 10-04-2022 Anion gap [Moles/Vol] 10.2 mmol/L 6.0-15.0 [facility] Serum or plasma aspartate am inotransferase measurement (enzymatic activity/volume)Ordered By: Anand Steinberg on 10-04-2022 AST [Catalytic activity/Vol] 23 U/L 10-42 [facility] Serum or plasma calcium shwetha urement (mass/volume)Ordered By: Anand Steinberg on 10-04-2022 Calcium [Mass/Vol] 9.4 mg/dL 8.2-10.2 [facility] Serum or plasma chloride julienne surement (moles/volume)Ordered By: Anand Steinberg on 10-04-2022 Chloride [Moles/Vol] 103 mmol/L 95-114 [facility] Serum or plasma glucose shwetha urement (mass/volume)Ordered By: Anand Steinberg on 10-04-2022 Glucose [Mass/Vol] 101 mg/dL 70-100 [facility] Comment on above: ADA recommended refe rence rangeRandom Glucose Reference Range is dependent on time and content of last meal. Glucose of more than 200 mg/dL in a nonstressed, ambulatory subject supports the diagnosis of Diabetes Mellitus. Serum or plasma high density lipoprotein (HDL) cholesterol measurementOrdered By: Anand Steinberg on 10-04-2022 Cholesterol in HDL [Mass/Vol] 57 mg/dL 35-85 [facility] Comment on above: HDL CHOL ATP-III CLA SSIFICATION Cardiovascular RiskHDL > or equal to 60 mg/dL LOWHDL < 40 mg/dL HIGH Serum or plasma potassium me asurement (moles/volume)Ordered By: Anand Steinberg on 10-04-2022 Potassium [Moles/Vol] 4.0 mmol/L 3.5-5.1 [facility] Serum or plasma sodium measu rement (moles/volume)Ordered By: Anand Steinberg on 10-04-2022 Sodium [Moles/Vol] 136 mmol/L 136-146 [facility] Serum or plasma total biliru bin measurement (mass/volume)Ordered By: Anand Steinberg on 10-04-2022 Bilirubin [Mass/Vol] 0.4 mg/dL 0.3-1.2 [facility] Serum or plasma total carbon dioxide measurement (moles/volume)Ordered By: Anand Steinberg on 10-04-2022 CO2 [Moles/Vol] 26.8 mmol/L 22.0-30.0 [facility] Serum or plasma total choles terol/high density lipoprotein (HDL) cholesterol mass ratOrdered By: Anand Steinberg on 10-04-2022 Cholesterol.total/Dona sterol in HDL [Mass ratio] 3.4 {ratio} <5.0 [facility] Serum or plasma urea nitroge n measurement (mass/volume)Ordered By: Anand Steinberg on 10-04-2022 Urea nitrogen [Mass/Vol] 18 mg/dL 9-23 [facility] TSH DL <= 0.005 mIU/L QnOrde red By: Anand Steinberg on 10-04-2022 TSH Qn 1.46 m[IU]/L 0.45-5.33 [facility] Thyroid Stimulating Hormoneo n 10-04-2022 TSH Qn 1.46 m[IU]/L Normal 0.45-5.33 [facility] Comment on above: Order Comment: Reaso n for Exam [facility] use of drug Reason for Exam Hyperlipidemia Reason for Exam Weight loss Result Comment: PERF ORMED BY: [place] [address] PATHOLOGIST DRILLING RIG OPERATOR RENAN ALLEN M.D. Performed By: #### L IPID, TSH3, CMP #### [address] Triglyceride [Mass/volume] i n Serum or PlasmaOrdered By: Anand Steinberg on 10-04-2022 Triglyceride [Mass/Vol] 49 mg/dL 35-149 [facility] Comment on above: TRIG ATP III CLASSIF ICATIONTRIG less than 150 mg/dL NormalTRIG 150-199 mg/dL Borderline highTRIG 200-500 mg/dL High TRIG greater than 500 mg/dL Very highStandard traceable to the Center for Disease Conrtrol and Prevention (CDC) test method. WBC Auto (Bld) [#/Vol]Ordere d By: Anand Steinberg on 10-04-2022 WBC (Bld) [#/Vol] 3.3 10*3/uL 3.8-11.6 [facility] Coding Summary.on 09-09-2022 Coding Summary. [id number] G h0bWw+PGhlYWQ+EP3YNKM mA57bvVSvfT7ZQ1sWTR5Y VDFOFDDEYF5JSI1jfXP1D NoxA7DaosEt RxmcaOMcMC94DAv7VMQ1b GofQAdjgU0ioVZfU4e6Qe JnYX35vD85YNvzGWAlJvC 3LjZpbjsgbWFy P9qlOrUlfXXdWqt+PHRhY mxlIHdpZHRoPScxMDAlJy DyiAamDM6gFi3eWOQjBRS vbGxhcHNlOiBj g6erHMJtKUqgCU2dzPkxE 7ZtiBO0HAQzh5v0Sm62kN I+OBThTTR6jMsdQBaan44 8QqBwh5fnQRR3 dUOqFZifIMH0R26ce7R5D SVcWODkAEA2dDQ8zA9gtH eiseheX3JzcMTdWiE6VNN 7dDQcoD9suHrw amdmdA0cCxt+U61BRA1RH QBYAO2KVmn5W4AzKymvgR I+YY03FPJyCV91wSNedXR ge4xvbHx0ZsYn AAGaVMN2nFgjSCbus0QkE GCjV87khNMjd8M9QQSzcI oaeDHgUpHmoDI3xA5eJQv eansqk3sxylvz Nqqcg0riww27eM42L24pG YadLLPsWIL9QWWfVQZgnM wdlk3mkH0gKd6+NWtow5z us6xcxIl5KlXz RKBvvhGpuXrhDBO9e7CqS h39P2XpfTtsg3UuJez6vy 93nPZkq7J6uWR1NEbdMJF vaG3xEVjpRsG6 JPDsElRunR81gBIeHYonS z2ngEauqJwvWP2xFOQyjk vnOGLmsK4mSGDurOCuuYt sPT3qSATkeluo x217DvCkMCX5CFWyjOLdG 0ZgaX0lJySoEDLnDHAjI3 VykXVeRUmkL251PCxvAbU 7ZJDihuMrY6Ul TJGtyIvkEqJ7g8S3Bc8Tq 3AzgqmqSEO0LIruWJZkNb E9MbSiAkM2W1YfXxb8ZDE kbDbzHP3vU0Cj MFMzjhzqtogckVV2YZJoN VOupC87oUXqLWrmJv0is3 O2n935XODlDFKauK30Mj1 udDogMTBwdCBU uE5gugxvt2rdabahZbOeY TObRSd4PYn2HNLykRqhBt AlCCK3KrJ6UEC2xYOblA2 ltVbcjynukW4o Oyc+V05qqH7uFDE5GVZ2o lngTARavgWuON88GY37P8 RyPjwvdGFibGU+PGRpdiB njYqePT3tDgJf m9qjp5YbNBubV4ItTHYhC UjrYjr0FTKqBIL2gPR7mA 3wLBHoISfrj8Z9rKE0L6J bomSxuf9ix3md RXNkVVdtW24vdKSll5Y2W TRumOE3OBBgnPwxIbAvwP 93Oyc+SDLicTikk8RgHhk es0tfu0txqTq8 LhFoWVMzdkVlzFjzMCD3a 6FmDc87J09sJZreCRQgAF RpAJJnKJSsrXqros6mdQ5 wIi8+PGNvbCB3 uVE9yJ3fZJIyCrX2SHfiA 929OaQyrLMoCgqvz3wep7 hlcKw4ByObKVDgheSgxBr tJVV1w1VeVl65 L56gKBfjCHNvZHBsNOCgT AOkkLotwy5qhA2mXp3+PC 5gf8kcbs21lO40xGJ+PHR zIWH9jDpaKNns DDClzY2bXLrtYeJ9SPIdG eQwkG59jLZrRPrkDx6dcW fxmOdtPV7eXCZispfuq18 0ViLae0mbLUAo uZOhJIwiBXT0W30gh9R4Z ZVjBCIyRUZ5fFE4zC3gpZ lnbjogbGVmdDsgdmVydGl oBJziXUljC151 IHRvcDsnPlBhdGllbnQgT fAfSTz4L1OaWgy3TAIgnP vlCG4mgHOcCIwvGe4avYq ufAecHN1dPOMi xigps574JdSfu1iwEULcw VViRMmnUTW3W23kz2O6WH HkPSBtATQ1qDL8iJ7aeAj nbjogbGVmdDsg rnCzmIxgZKjkWSudS249I HRvcDsnPkJpcnRoIERhdG M9ZQ48RU14fVLek6F4rUE 4E9JlVXWlkdvw fvptiUK1GHFzSUTmwS47C r1duBgeHs5cVJLyINC2DH NsjTSkI2VlhH3yMpHyAQH mKCEnV8CoqYNy QHqmT869OYorGoC4JLFpy sGqH0LyPDRexUvlYqR6t3 O3Pp2DJ3P9SR13SZ02tGU kh2C5pWL8H4Im WZDccetpurqcnUY9GQNcJ FGlnG68Ub6pmEfwYd5lZJ AuMSV1GJDskGRwJ5PzeQ8 yOiAjMDAwMDAw B8HwaAFdSPymJ780QNryP rS0XSMcabTqX6BxYOLtiQ scUnP8i4Z7Ig2CJJt0BQ6 4YW88aIGtl6G9 rRA6Y4VtNTZvszftjwike MV7AFKnHUHudA55Km4lkH hnUl3pZJWvSQL5WDWsqUZ mV2MbcT0aAuYw RMEdKFRoQ0BaoWTuCTwkV 786UMowOiR5YJXvufSuK5 WbXMCljUsrEzC1h1L0At5 JZRBnMR87AEZ4 rNZ1FY56DP08B0TtHhasp GFibGU+PHRhYmxlIHdpZH RoPScxMDAlJyBzdHlsZT0 yFn8bNVTsYQEz pGzzmOGjBwQir0alQPSfP IouTX6mfQipB5CapOW4FN Zth2d8Wo51N19pB0ReiOI +HXSqjEZ2nMB1 eB6jMuHiWfT2IOzvV640W lSjlXCnBrcaa3oqo2uczO a1LuQ7BAFuttZjdWrkMNK 0g2XpUc81J74j IHdpZHRoPSIxNSUiIHZhb Lxamt0zkL4sQk4+PGNvbC Z2hYU0dV8zFvImWgT5HBl oJ081ExItcFKd Hrmzl2edw3tokZl9CfHdW UOlfcLfcZmeRAX9n7GjUb 81T6WasXsxj2LcCrn2oy7 2eQRsx4Q5uEP6 S5DwJTUkgndhiXXhwLyfQ A0nSUYtyhtjWBHsgU0hFM LmX2f7FzGwSbB6CMtpL0J rmkM0EJAeuVSb GCyiJWM3F52xu9U7SBYsV BTiJHA8xMD8zZ4fyUnmez ogbGVmdDsgdmVydGljYWw sVAugF803KLDn vOsvUEAgrF2vOMXzgGTec YipAR0rDHAlztscXo5VEE QICDLWOV7OU6UEECTiSWa vdGQ+PHRkIHN0 sZfdIYvnFTPsvF4aQTRyS 2k1KnLaHeJ3MAwxB8JcQP WxekadIi49rN5aUqLjWdX 4SXsaS3VyauY3 IQRbbBQePJplWTA3R55vn 7F8QPHaCJFtMTZ9jWZ8nC 1hbGlnbjogbGVmdDsgdmV ydGljYWwtYWxp Y503GCBhsZzlXzY2PcVcM rD3FYe2P0FhTaq3YGGpgR qpYJ9ooXVwVWfhVp1zpTb zzMzhLJ4fMRZo bdpkTINnjJ8uNUGjeWRva NknXT3lZOUwgkwfw596Ea SgDEP1YLBivDWoY2HzuY8 yOiAjMDAwMDAw G7GebGGnLXxjX562QIpfV wW9ZBWihbVdR4IxFIAcxN awJaK8m8E0Ox75NECQBDV yczwvdGQ+PHRk GYY4xOtiLOtoVUBvaH1mF RUnD5a9QtFwTeN7QZjcB1 NrDXPglvnnTa56gP7rYcJ sUfR7CRdyE1Lj gnG9HYKpySAhTZhrNFV3S 51ib7T0RJBkYPLgQHU2zT T8uV2clFlcxcdrxPUauMd gdmVydGljYWwt YIlsJ457BPZmlFioTtMsv WFsZTwvdGQ+GUPcIEG8cU wnDZzjXJCajG5zEHWzU5s 0GvLkRfE5EMwv A1VwNPJdgpejAw25dU8lN jAkZoZ9RWjpS1FarmV5YQ DnuVHwRXxqNAI7V26sy2I 6VUYjMZIeSOU2 uRT4tD3qpOzwztzcxVRvc DsgdmVydGljYWwtYWxpZ2 32ISSxfKdpGyllDfSTso7 dMF6fTflhfZF+ HI79ge13Q3LbDqntAjn8Y MWuYWY2oOG6eO1kXNKeSJ wal3U4gRR5H5CvkaPvrv6 qz4cuJMWrSEuk L89fyMRhl9B4YXIksFK1H QJqrOfrJrCsjL99Htq+PG MirJrqk2KqJhvpt0xmt7m pyDm2VaKiZKXf veZflBpqWEZ3a0NhRf64F 29sIHdpZHRoPSIzMCUiIH SzlZgkpm9vtQ5pRw1+PGN mqDR7dPR5wS3a LhFlYkX5DIglH373NsTkl ATpVfirv9vej6basZp8Fu TwNYHptfAiiFfgODN8j9X rHg30I4RvvUtd q7MjEdq6eu84sFFee6A6k TT6O2PwCDAbcdjzjPHmeG cfEX4iMDOugxbmZEJivC5 bGDYbX9j9WlJg QbH4IZbrM0XzlxR9LDIgq BJaQSRynEOWqJ6xnoulb3 rrskfmLgEaMFKlZJe7OEp 0LWFsaWduOiBs GCG0MzB3ZGS4tGJcrG0oi YfbeofqoS2gOev+UGh5c2 ytfQIfQF0wyHN6ZF27ZC6 2oIBbc1F1rKU7 D3QlNLVttkkouenaaFY8K QNqUYUxfV62Ew2haVdlVf 6iNYTpDSJ4ZBVkuKGfY0Y loU6yNlZfBNDe WXPoJ0MpcWHrWUisV153E YgeFgN5TEUvauAaW0GjBJ PboGjvHdR1o5X3Av5ULQ4 4MM22KY29aJHs m3V9iYZ6Q8HzJKSvgesvr cohlKP6NGOhGCUqqB55Lb 1qeWqaPp9mSPXeUHQ7EFR tgWQcQ8HruN8j DfPxOLOiJNRiV9AhuUEaJ ZflL984YHatVkQ3FIDksk VeW4XxZZIwfJsnIkB3e9T 9Lx7XSc28BC03 UM10pLXlo9E5nMB3B9UsO NBsulecfqyvjUM6IGYaHT KmdE78Hg2exLffJj2mLVE zKEX9NOFkgXQo J1HzbF5dZtBgAKBiHQKqT 9WqrEQzJFlrZ216XFhbVz L7BBFpmuMiW3FaLUUfiAt cPzH4i0S3Bs1O HDqckxh0Z6TeNmjmgLP+P S12QHNhES03qFUchPKrn5 tfoFu8LiWsISQmOVF8xLv dHHlkr3OfKWYk Y29s (more content not included)... Normal [facility] C Urineon 09-07-2022 Bacteria identified Cx Nom (U) Microbiology PROCEDURE: Urine Culture [R1] SOURCE: U Random BODY SITE: COLLECTED DATE/TIME: 09/05/2022 13:15 EST RECEIVED DATE/TIME: 09/05/2022 17:57 EST START DATE/TIME: 09/05/2022 17:57 EST FREE TEXT SOURCE: BREANNA REGAN PA-C, PA-C, JENNIFER E FINAL REPORTS Final Report [] Verified Date/Time: 09/07/2022 07:29 EST 1,000 cfu/ml Mixed skin contaminants Performing Locations R1: This test was performed at: [facility], [address] [place] [address], [phone] [place], Normal [facility] Comment on above: Performed By: #### [id number] #### [facility] [address] [place] [address] POINT OF CARE GLUCOSEon 10-0 Glucose [Mass/Vol] 118 mg/dL Critically high 74-106 [facility] Comment on above: Performed By: #### P OCGLUC #### [facility] [address] [place], [place] [address] Dr. Fidelia Adkins Glucose [Mass/Vol] 119 mg/dL Critically high 74-106 [facility] Comment on above: Performed By: #### P OCGLUC #### [facility] [address] [place], [place] [address] Dr. Fidelia Adkins SCREENING MAMMOGRAM W/TRAVIS, BILATERAL*on 02-05-2022 SCREENING MAMMOGRAM W/TRAVIS, BILATERAL* CLINICAL HISTORY: Screening Mammogram COMPARISON: 02/03/2021, 08/27/2018, and 08/19/2017. TECHNIQUE: 2D and 3D Tomosynthesis of the right and left breasts was performed. FINDINGS: Both breasts remain heterogeneously dense bilaterally, with stable asymmetry. There are no suspicious masses, areas of suspicious microcalcifications or areas of architectural distortion identified. No evidence of skin thickening. IMPRESSION: BIRADS 1 : NEGATIVE, NORMAL INTERVAL FOLLOW UP. Board certified radiologist. Accredited by the ACR and FDA. MAMMOGRAPHY IS VERY IMPORTANT TO YOUR HEALTH. CURRENT [employer] GUIDELINES RECOMMENDS ANNUAL MAMMOGRAPHY BEGINNING AT AGE 38. THIS FACILITY USUALLY USES A REMINDER SYSTEM TO ENSURE ALL POSITIONS RECEIVED REMINDER NOTIFICATIONS AT THE TIME BASED ON THE RECOMMENDATIONS OF THIS EXAM. Report reported and signed by Gus Shell on 02/07/2022 0849 Normal [facility] Statement Request Clerk Additional Injections: nic [facility] Vital Signs Date Time Vital Sign Value Performing Clinician Facility 08-21-2023 10:04-0500 Diastolic blood pressure 72 mm[Hg] BREANNA REGAN [facility] 08-21-2023 10:04-0500 Systolic blood pressure 138 mm[Hg] BREANNA REGAN [facility] 03-27-2023 09:10-0400 Body height 154.94 cm Karis Bautista [facility] 03-27-2023 09:10-0400 Body mass index (BMI) [Ratio] 23.62 kg/m2 Karis Bautista [facility] 03-27-2023 09:10-0400 Body temperature 98 [degF] Karis Bautista [facility] 03-27-2023 09:10-0400 Body weight 56.7 kg Karis Bautista [facility] 03-27-2023 09:10-0400 Diastolic blood pressure 85 mm[Hg] Karis Bautista [facility] 03-27-2023 09:10-0400 Respiratory rate 18 /min Karis Bautista [facility] 03-27-2023 09:10-0400 SaO2% (BldA) [Mass fraction] 100 % Karis Bautista [facility] 03-27-2023 09:10-0400 Systolic blood pressure 146 mm[Hg] Karis Bautista [facility] 01-24-2023 09:14-0400 Blood Pressure Location BREANNA JASS [facility] 01-24-2023 09:14-0400 Diastolic blood pressure 75 mm[Hg] BREANNA JASS [facility] 01-24-2023 09:14-0400 Heart rate 63 /min BREANNA JSAS [facility] 01-24-2023 09:14-0400 Systolic blood pressure 118 mm[Hg] BREANNA JASS [facility] 08-09-2022 13:11-0500 Blood Pressure Location BREANNA JASS [facility] 08-09-2022 13:11-0500 Diastolic blood pressure 71 mm[Hg] BREANNA JASS [facility] 08-09-2022 13:11-0500 Heart rate 64 /min BREANNA JASS [facility] 08-09-2022 13:11-0500 Systolic blood pressure 137 mm[Hg] BREANNA JASS [facility] 04-11-2022 10:50-0400 Body height 154.94 cm Anand Steinberg [facility] 04-11-2022 10:50-0400 Body mass index (BMI) [Ratio] 22.58 kg/m2 Anand Steinberg [facility] 04-11-2022 10:50-0400 Body temperature 98.3 [degF] Anand Ayalarachna [facility] 04-11-2022 10:50-0400 Body weight 54.21 kg Anand Steinberg [facility] 04-11-2022 10:50-0400 Diastolic blood pressure 60 mm[Hg] Anand Steinberg [facility] 04-11-2022 10:50-0400 Respiratory rate 16 /min Anand Steinberg [facility] 04-11-2022 10:50-0400 SaO2% (BldA) [Mass fraction] 97 % Anand Ayalarachna [facility] 04-11-2022 10:50-0400 Systolic blood pressure 128 mm[Hg] Anand Ayalarachna [facility] 01-22-2022 10:12-0400 Blood Pressure Location Anatoliy Jauregui Jr. [facility] 01-22-2022 10:12-0400 Diastolic blood pressure 78 mm[Hg] Anatoliy Jauregui Jr. [facility] 01-22-2022 10:12-0400 Heart rate 77 /min Anatoliy Jauregui Jr. [facility] 01-22-2022 10:12-0400 Respiratory rate 16 /min Anatoliy Jauregui Jr. [facility] 01-22-2022 10:12-0400 Systolic blood pressure 128 mm[Hg] Anatoliy Juventino Arthur [facility] 10-06-2021 10:50-0500 Body height 154.94 cm Anand Steinberg Other [facility] 10-06-2021 10:50-0500 Body mass index (BMI) [Ratio] 23.24 kg/m2 Anand Steinberg [facility] 10-06-2021 10:50-0500 Body temperature 97.7 [degF] Anand Steinberg Other [facility] 10-06-2021 10:50-0500 Body weight 55.79 kg Anand Steinberg Other [facility] 10-06-2021 10:50-0500 Diastolic blood pressure 70 mm[Hg] Anand Steinberg Other [facility] 10-06-2021 10:50-0500 Respiratory rate 18 /min Anand Steinberg [facility] 10-06-2021 10:50-0500 SaO2% (BldA) [Mass fraction] 96 % Anand Steinberg Other [facility] Other 10-06-2021 10:50-0500 Systolic blood pressure 110 mm[Hg] Anand Steinberg Other [facility] Other Encounters Encounter Date Encounter Type Care Provider Facility Start: 02-13-2024 ambulatory PA-C BREANNA REGAN Facility:[facility] Start: 08-21-2023 End: 08-22-2023 ambulatory PA-C BREANNA REGAN Facility:[facility] Start: 08-21-2023 End: 08-21-2023 Patient encounter procedure BREANNA REGAN [facility] [place] Start: 04-15-2023 End: 04-15-2023 ambulatory Anand Ayalarachna Facility:[facility] Start: 03-27-2023 End: 03-27-2023 ambulatory Anand Ayalarachna Other [facility] Other Start: 03-27-2023 Office outpatient vi sit 15 minutes Karis Bautista [facility] Start: 03-27-2023 Telephone encounter Anand Steinberg [facility] Start: 02-01-2023 End: 02-01-2023 ambulatory Anand Steinberg Facility:[facility] Start: 02-01-2023 End: 02-01-2023 Patient encounter procedure DO Anand Steinberg Work Phone: [facility] Work Phone: Start: 02-01-2023 End: 02-01-2023 ambulatory DO Anand Steinberg Work Phone: [facility] Work Phone: Start: 02-01-2023 Telephone encounter Anand Steinberg [facility] Start: 02-01-2023 End: 02-01-[address] CARMENCITA MADSEN . Facility: Start: 01-24-2023 End: 01-25-2023 ambulatory PA-C BREANNA REGAN Facility:[facility] Start: 01-24-2023 End: 01-24-2023 Patient encounter procedure BREANNA REGAN [facility] [place] Start: 12-26-2022 End: 12-27-2022 ambulatory NURY Ross ROMANCHERYL Facility:[facility] Start: 12-07-2022 End: 12-07-2022 ambulatory Susan Mcgee Other [facility] Other Start: 12-07-2022 Telephone encounter [facility] Start: 11-21-2022 End: 11-21-2022 ambulatory Qiana Teo RT(R) Radiology Comment on above: Radiology XR Start: 11-21-2022 End: 11-21-2022 Patient encounter procedure Qiana Fabiandell RT(R) [facility] [place] Comment on above: Trigger finger, left middle finger (Primary Dx); Trigger index finger of right hand Start: 10-04-2022 End: 10-04-2022 ambulatory Anand Steinberg Facility:[facility] Start: 10-04-2022 End: 10-04-2022 ambulatory DO Anand Steinebrg Work Phone: [facility] Work Phone: Start: 10-04-2022 End: 10-04-2022 Patient encounter procedure DO Anand Steinberg Work Phone: [facility] [place] Work Phone: Start: 09-25-2022 End: 09-26-[address] ANAND STEINBERG Facility:[facility] Start: 09-11-2022 End: 09-11-2022 ambulatory Anand Steinberg Other [facility] Other Start: 09-11-2022 Telephone encounter Anand Steinberg [facility] Start: 09-05-2022 End: 09-06-2022 ambulatory PA-C BREANNA REGAN Facility:[facility] Start: 09-05-2022 End: 09-05-2022 Lab Drop off BREANNA REGAN [facility] Start: 09-05-2022 End: 09-06-2022 ambulatory PA-Moise REGAN Facility:[facility] Start: 09-05-2022 End: 09-05-2022 Patient encounter procedure BREANNA REGAN [facility] [place] Start: 08-09-2022 End: 08-09-2022 Patient encounter procedure BREANNA REGAN [facility] [place] Start: 08-09-2022 End: 08-10-[address] ANAND STEINBERG Facility:[facility] Start: 07-19-2022 End: 07-20-[address] ANAND STEINBERG Facility:[facility] Start: 06-29-2022 End: 06-29-2022 ambulatory Anand Steinberg Other [facility] Other Start: 06-29-2022 Telephone encounter Anand Steinberg [facility] Start: 06-28-2022 End: 06-29-[address] ANAND STEINBERG Facility:[facility] Start: 06-25-2022 ambulatory NURY SWARTZ Faci lity:[facility] Start: 06-20-2022 End: 06-20-2022 ambulatory Anand Steinberg Other [facility] Other Start: 06-20-2022 Telephone encounter Anand Steinberg [facility] Start: 06-12-2022 Encounter for preprocedural cardiovascular examination NURY SWARTZ [facility] Start: 06-08-2022 End: 06-09-2022 ambulatory NURY SWARTZ Facility:[facility]1 Start: 06-08-2022 End: 06-09-2022 Encounter for preprocedural cardiovascular examination NURY SWARTZ Facility:[facility]1 Start: 05-24-2022 End: 05-24-2022 ambulatory Anand Steinberg Other [facility] Other Start: 05-24-2022 Telephone encounter Anand Steinberg [facility] Start: 05-02-2022 End: 05-03-[address] ANAND STEINBERG Facility:[facility]1 Start: 04-11-2022 End: 04-11-2022 ambulatory Anand Steinberg Other [facility] Other Start: 04-11-2022 Office outpatient vi sit 25 minutes Anand Steinberg [facility] Start: 03-27-2022 End: 03-27-2022 ambulatory Anand Steinberg Other [facility] Other Start: 03-27-2022 Telephone encounter Anand Steinberg [facility] Start: 01-22-2022 End: 01-22-2022 Patient encounter procedure Anatoliy Jauregui Jr. [facility] Start: 10-06-2021 End: 10-06-2021 ambulatory Anand Steinberg Other [facility] Other Start: 10-06-2021 Office outpatient vi sit 15 minutes Anand Steinberg [facility] Procedures Date Procedure Procedure Detail Performing Clinician Start: 11-21-2022 Injection 1 tendon sheath/ligament aponeurosis Isma Kwon PA-C Work Phone: Start: 02-19-2019 Cystourethroscopy wi th dilation of urethral stricture Anatoliy Jauregui Jr. Start: 06-18-2011 Cystourethroscopy wi th dilation of urethral stricture Anatoliy Jauregui Jr. Appendectomy Anatoliy Carrasco back surgery Anatoliy Carrasco Bilateral tubal ligation Emiliano Jauregui Jr. Cholecystectomy Anatoliy Jauregui Jr. Colonoscopy Anatoliy Carrasco Release of trigger finger Do diaz Jauregui Jr. Removal of ovarian cyst Susan Jauregui Jr. Tonsillectomy Anatoliy stephensonLuna Plan of Treatment Date Care Activity Detail Author Start: 02-01-2023 Diagnostic radiography of nasal bones XR nasal bones min 3V* [facility] Start: 09-23-2022 ADVANCE DIRECTIVE DISCUSSION ADVANCE DIRECTIVE DISCUSSION [facility] Start: 09-23-2022 DEPRESSION ASSESSMENT DEPRESSION ASSESSMENT [facility] Start: 05-24-2022 Influenza vaccination INFLUENZA (#1) [facility] Start: 2013 BONE DENSITY BONE DENSITY [facility] Start: 2013 PNEUMOCOCCAL: 65+ (1 - PCV) PNEUMOCOCCAL: 65+ (1 - PCV) [facility] Start: 1998 SHINGRIX VACCINE (1 of 2) SHINGRIX VACCINE (1 of 2) [facility] Start: 1993 COLOGUARD (FIT-DNA) COLOGUARD (FIT-DNA) [facility] Start: 1993 Colonoscopy COLONOSCOPY [facility] Start: 1993 COLORECTAL CANCER SCREENING COLORECTAL CANCER SCREENING [facility] Start: [address] COLONOGRAPHY [facility] Start: 1993 DIABETES SCREEN DIABETES SCREEN [facility] Start: 1993 FECAL OCCULT BLOOD FECAL OCCULT BLOOD [facility] Start: 1993 LIPID SCREEN LIPID SCREEN [facility] Start: 1993 SIGMOIDOSCOPY SIGMOIDOSCOPY [facility] Start: 1988 Mammography MAMMOGRAM [facility] Start: 1967 Urine microalbumin profile DTAP,TDAP,TD (1 - Tdap) [facility] Start: 1966 HEPATITIS C SCREENING HEPATITIS C SCREENING [facility] Start: 1948 COVID-19 VACCINE (#1) COVID-19 VACCINE (#1) [facility] Immunizations Immunization Date Immunization Notes Care Provider Barak moyer 03-27-2023 tetanus and diphther ia toxoids, adsorbed, preservative free, for adult use (2 Lf of tetanus toxoid and 2 Lf of diphtheria toxoid) BREANNA REGAN [facility] 03-27-2023 tetanus toxoid, reduced diphtheria toxoid, and acellular pertussis vaccine, adsorbed Anand Steinberg Other [facility] Other 08-06-2018 zoster vaccine, live KELLEY Seema HERNANDEZRY [facility] Payers Date Payer Category Payer Self-pay [id number] 2022 Medicare [id number] 2022 Medicare UHC MEDICARE UHC MEDICARE ADVANTAGE PPO [id number] 20[address]-[facility] [phone] [address] [address] [place] [address] PPO [id number] 1959 Medicare [id number] 1959 Private Health Insurance [id number] 1948 Unknown [id number] 2.16.840.1.785716.3.579.2. 593 1948 Unknown [id number] 2.16.840.1.933719.3.579.2. 593 1948 Unknown [id number] 2.16.840.1.869866.3.579.2. 593 1948 Unknown [id number] 2.16.840.1.662221.3.579.2. 593 1948 Unknown [id number] 2.16.840.1.315743.3.579.2. 593 1948 Unknown [id number] 2.16.840.1.829783.3.579.2. 593 1948 Unknown [id number] 2.16.840.1.948619.3.579.2. 593 1948 Unknown [id number] 2.16.840.1.776020.3.579.2. 593 1948 Unknown [id number] 2.16.840.1.556733.3.579.2. 593 1948 Unknown [id number] 2.16.840.1.752298.3.579.2. 727 1948 Unknown [id number] 2.16.840.1.456272.3.579.2. 727 1948 Unknown [id number] 2.16.840.1.065826.3.579.2. 727 1948 Unknown [id number] 2.16.840.1.774583.3.579.2. 727 1948 Unknown [id number] 2.16840.1.610583.3.579.2. 727 Medicare [id number] 2.16.840.1.796972.19 Private Health Insurance [employer] Mcr PFFS N on Pt [id number] Unknown [id number] 2.16.840.1.257572.3.579.2. 531 Unknown [id number] 2.16840.1.291510.3.579.2. 531 Unknown [id number] 2.16840.1.179574.3.579.2. 531 Social History Date Type Detail Facility Start: 01-22-2022 End: 08-21-2023 Tobacco smoking status Never smoked tobacco (finding) [facility] Other Tobacco smoking status Never [facility] Sex Assigned At Female Located Within [facility] Other Start: 1950 Sex Assigned At Female [facility] Tobacco smoking status MNIS Tobacco smoking consumption unknown [facility] Start: 1950 Sex Assigned At Not on file C [facility] Functional Status Date Assessment Result Facility 08-21-2023 Functional Status N/A [facility] 01-24-2023 Functional Status N/A [facility] 08-09-2022 Functional Status N/A [facility] Clinical Notes 02-21-2009 to 08-21-2023 Note Date & Type Note Facility 08-21-2023 Hospital Discharg e instructions Patient Education 08/21/2023 10:23:38 Urinary Tract Infection, Adult, Yuki-nq-Arhd Urinary Tract Infection, Adult A urinary tract infection (UTI) is an infection of any part of the urinary tract. The urinary tract includes: The kidneys. The ureters. The bladder. The urethra. These organs make, store, and get rid of pee (urine) in the body. What are the causes? This infection is caused by germs (bacteria) in your genital area. These germs grow and cause swelling (inflammation) of your urinary tract. What increases the risk? The following factors may make you more likely to develop this condition: Using a small, thin tube (catheter) to drain pee. Not being able to control when you pee or poop (incontinence). Being female. If you are female, these things can increase the risk: ?Using these methods to prevent : ?A medicine that kills sperm (spermicide). ?A device that blocks sperm (diaphragm). ?Having low levels of a female hormone (estrogen). ?Being . You are more likely to develop this condition if: You have genes that add to your risk. You are sexually active. You take antibiotic medicines. You have trouble peeing because of: ?A prostate that is bigger than normal, if you are male. ?A blockage in the part of your body that drains pee from the bladder. ?A kidney stone. ?A nerve condition that affects your bladder. ?Not getting enough to drink. ?Not peeing often enough. You have other conditions, such as: ?Diabetes. ?A weak disease-fighting system (immune system). ?Sickle cell disease. ?Gout. ?Injury of the spine. What are the signs or symptoms? Symptoms of this condition include: Needing to pee right away. Peeing small amounts often. Pain or burning when peeing. Blood in the pee. Pee that smells bad or not like normal. Trouble peeing. Pee that is cloudy. Fluid coming from the vagina, if you are female. Pain in the belly or lower back. Other symptoms include: Vomiting. Not feeling hungry. Feeling mixed up (confused). This may be the first symptom in older adults. Being tired and grouchy (irritable). A fever. Watery poop (diarrhea). How is this treated? Taking antibiotic medicine. Taking other medicines. Drinking enough water. In some cases, you may need to see a specialist. Follow these instructions at home: Medicines Take rwwe-fvq-xekyffm and prescription medicines only as told by your doctor. If you were prescribed an antibiotic medicine, take it as told by your doctor. Do not stop taking it even if you start to feel better. General instructions Make sure you: ?Pee until your bladder is empty. ?Do not hold pee for a long time. ?Empty your bladder after sex. ?Wipe from front to back after peeing or pooping if you are a female. Use each tissue one time when you wipe. Drink enough fluid to keep your pee pale yellow. Keep all follow-up visits. Contact a doctor if: You do not get better after 1 2 days. Your symptoms go away and then come back. Get help right away if: You have very bad back pain. You have very bad pain in your lower belly. You have a fever. You have chills. You feeling like you will vomit or you vomit. Summary A urinary tract infection (UTI) is an infection of any part of the urinary tract. This condition is caused by germs in your genital area. There are many risk factors for a UTI. Treatment includes antibiotic medicines. Drink enough fluid to keep your pee pale yellow. This information is not intended to replace advice given to you by your health care provider. Make sure you discuss any questions you have with your health care provider. Document Revised: 04/21/2021 Document Reviewed: 04/21/2021 [employer] Patient Education 2022 [employer]. Follow Up Care 01/24/2023 09:53:30 With:JASS WILLIAMSON, BREANNA E, URL Address: [address] [place] [address] [phone] When: Unknown Comments:6 mos [facility] Ruth Ann 03-27-2023 Evaluation note Encounter Date Diagnosis Assessment Notes Mar, Bitten by dog, initial encounter (ICD-10 - W54.0XXA) Dog bite home care material was printed Drink plenty fluids, get plenty of rest. Take the amoxicillin with clavulanate as prescribed until gone. Take Tylenol or Motrin as needed for pain. Keep the wounds clean and dry. Apply antibiotic ointment to the wounds daily. Wear gloves when washing dishes until the wounds on your hand are completely healed. Call your family doctor today for an appointment for recheck next week. Go to the ER for worsening symptoms or concerns. Mar, Open bite of other part of head, initial encounter (ICD-10 - S01.85XA) Mar, Open bite of left hand, initial encounter (ICD-10 - S61.452A) [facility] Other 05-12-2023 Evaluation note* Encounter Date Diagnosis Assessment Notes Treatment Notes Treatment Clinical Notes January, Nasal injury (ICD-10 - S09.92XA) January, Nasal pain (ICD-10 - J34.89) [facility] Other 05-04-2023 Hospital Discharge instructions Patient Education 01/24/2023 08:32:54 Urinary Tract Infection, Adult Urinary Tract Infection, Adult A urinary tract infection (UTI) is an infection of any part of the urinary tract. The urinary tractincludes the kidneys, ureters, bladder, and urethra. These organs make, store, and get rid of urinein the body. An upper UTI affects the ureters and kidneys. A lower UTI affects the bladder and urethra. What are the causes? Most urinary tract infections are caused by bacteria in your genital area around your urethra, where urine leaves your body. These bacteria grow and cause inflammation of your urinary tract. What increases the risk? You are more likely to develop this condition if: You have a urinary catheter that stays in place. You are not able to control when you urinate or have a bowel movement (incontinence). You are female and you: ?Use a spermicide or diaphragm for control. ?Have low estrogen levels. ?Are . You have certain genes that increase your risk. You are sexually active. You take antibiotic medicines. You have a condition that causes your flow of urine to slow down, such as: ?An enlarged prostate, if you are male. ?Blockage in your urethra. ?A kidney stone. ?A nerve condition that affects your bladder control (neurogenic bladder). ?Not getting enough to drink, or not urinating often. You have certain medical conditions, such as: ?Diabetes. ?A weak disease-fighting system (immunesystem). ?Sickle cell disease. ?Gout. ?Spinal cord injury. What are the signs or symptoms? Symptoms of this condition include: Needing to urinate right away (urgency). Frequent urination. This may include small amounts of urine each time you urinate. Pain or burning with urination. Blood in the urine. Urine that smells bad or unusual. Trouble urinating. Cloudy urine. Vaginal discharge, if you are female. Pain in the abdomen or the lower back. You may also have: Vomiting or a decreased appetite. Confusion. Irritability or tiredness. A fever or chills. Diarrhea. The first symptom in older adults may be confusion. In some cases, they may not have any symptoms until the infection has worsened. How is this diagnosed? This condition is diagnosed based on your medical history and a physical exam. You may also have other tests, including: Urine tests. Blood tests. Tests for STIs (sexually transmitted infections). If you have had more than one UTI, a cystoscopy or imaging studies may be done to determine the cause of the infections. How is this treated? Treatment for this condition includes: Antibiotic medicine. Rzdk-bwd-dbuuecz medicines to treat discomfort. Drinking enough water to stay hydrated. If you have frequent infections or have other conditions such as a kidney stone, you may need to see a health care provider who specializes in the urinary tract (urologist). In rare cases, urinary tract infections can cause sepsis. Sepsis is a life- threatening condition that occurs when the body responds to an infection. Sepsis is treated in the hospital with IV antibiotics, fluids, and other medicines. Follow these instructions at home: Medicines Take emuh-cpk-wtwwuje and prescription medicines only as told by your health care provider. If you were prescribed an antibiotic medicine, take it as told by your health care provider. Do notstop using the antibiotic even if you start to feel better. General instructions Make sure you: ?Empty your bladder often and completely. Do not hold urine for long periods of time. ?Empty your bladder after sex. ?Wipe from front to back after urinating or having a bowel movement if you are female. Use each tissue only one time when you wipe. Drink enough fluid to keep your urine pale yellow. Keep all follow-up visits. This is important. Contact a health care provider if: Your symptoms do not get better after 1 2 days. Your symptoms go away and then return. Get help right away if: You have severe pain in your back or your lower abdomen. You have a fever or chills. You have nausea or vomiting. Summary A urinary tract infection (UTI) is an infection of any part of the urinary tract, which includes the kidneys, ureters, bladder, and urethra. Most urinary tract infections are caused by bacteria in your genital area. Treatment for this condition often includes antibiotic medicines. If you were prescribed an antibiotic medicine, take it as told by your health care provider. Do notstop using the antibiotic even if you start to feel better. Keep all follow-up visits. This is important. This information is not intended to replace advice given to you by your health care provider. Make sure you discuss any questions you have with your health care provider. Document Revised: 04/21/2021 Document Reviewed: 04/21/2021 [employer] Patient Education 2022 [employer]. Follow Up Care 08/09/2022 13:47:36 With:BREANNA REGAN PA-C, URL Address: [address] [place] [address] When: Unknown [facility] Ruth Ann 04-05-2023 NotePROCEDURE: XR FOOT RT MIN 3 VIEWS HISTORY: Pain in right foot COMPARISON: XR foot right 09/25/2022 FINDINGS: BONES:Mechanical fusion of the first metatarsophalangeal joint via dorsal plate and screws. No hardware fracture or loosening. No bone fracture dislocation. Calcaneal plantar spur. SOFT TISSUES:No visible soft tissue swelling. EFFUSION:None visible. OTHER: Negative. IMPRESSION: 1. Stable surgical changes without evidence of hardware failure or change in alignment. Electronically authenticated by: GUS OLIVO Date: 2022-12-26 09:40[facility]03-01-2023 NoteHNO ID: [id number] Author: Isma Kwon PA-C Service: ? Author Type: Physician Dry Man Type: Progress Notes Filed: 11/21/2022 2:51 PM Note Text: The patient is sent for evaluation and an opinion regarding treatment by , who will receive a copy of this report by mail or through the shared medical record. CHIEF COMPLAINT: Niranjan Ricardo is a 72 year old female who presents today for new evaluation of bilateral middle finger trigger fingers. 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 She mentions that the left finger has been going on for about a year and a right finger for a few months. Left fingers worse than right. She states that this is very bothersome and painful especially when they lock. 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 She has not had any treatment for this but has a history of bilateral trigger thumb which were treated with surgery in the 's. Previous treatment or work-up includes: as above. ROS: REVIEW OF SYSTEMS: Constitutional: Fever/chills: Yes Cardiovascular: Chest Pain: No Respiratory: SOB: No Musculoskeletal: as noted in the HPI Neurologic: as noted in the HPI Endocrine: Diabetes: - Tobacco user? No SOCIAL HISTORY: Tobacco Use: Not on file FAMILY HISTORY: No family history on file. PAST MEDICAL HISTORY Diagnosis Date NEGATIVE MEDICAL HISTORY No pneumo, tb, dm, heart and ca PAST SURGICAL HISTORY Procedure Laterality Date CHOLECYSTECTOMY HX 1972 OTHER 2011 Neck Surgery OTHER 2007 Back Surgery No family history on file. ALLERGIES Allergen Reactions Codeine GI Upset Nicotine Other: See Comments throat hoarse; light headed; H/A's Sulfa (Sulfonamide * Itching Current Outpatient Medications Medication Sig Dispense Refill fluticasone (FLONASE) 50 mcg/actuation nasal spray Use 1 [place] in each nostril daily at bedtime. No current facility-administered medications for this visit. Physical Exam: Vitals: There were no vitals taken for this visit. Body Habitus:well nourished and no acute distress Orientation: Normal: Oriented to person, place and time Psych: normal and appropriate Skin: Color, texture, turgor normal. No rashes or lesions Sensation: sensation to light touch is grossly normal bilaterally Bilateral hand: Examination of bilateral hands skin is intact with no erythema, swelling or ecchymosis. There is positive tenderness and crepitus at bilateral middle fingers A1 pulleys. Negative tenderness or crepitus at any of the other A1 pulleys bilaterally. Sensation on the ulnar, median, radial nerve distributions are intact bilaterally. AIN, PIN, ulnar motor intact bilaterally. Able to make full fist. IMAGING: Final results and radiologist's interpretation, available in the [facility] health record. Images were reviewed with the patient/family members in the office today. 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 No acute fractures or dislocations. Left middle finger with moderate MP, PIP and DIP joint DJD changes. No acute fractures or dislocations noted. Other Tests: none Assessment: (M65.332) Trigger finger, left middle finger (primary encounter diagnosis) (M65.321) Trigger index finger of right hand Plan: Above diagnosis was discussed in detail with the patient today. I explained to her that there is a 2 out of 3 chances that a couple of steroid injections that spaced out in 6 weeks will help alleviate her symptoms. She agreed to do injections today to both middle fingers. I will have her follow-up in 6 weeks for possible repeat injections. Additional Injections: bilateral long A1 for trigger finger Informed Consent Consent Obtained: Verbal [place] Protocol A moment to CARE was completed. SIGN IN Personnel directly involved with the procedure wore the appropriate PPE. Special Equipment: Yes Patient/Surrogate Stated/Verified: Patient name, Date of , Relevant allergies and Intended procedure TIME OUT Intended patient and procedure match the source document(s). Consent documented and matches the intended procedure. Relevant labs, photos, and/or imaging studies have been reviewed. Correct side/site marked and visible. Medications required for procedure verified. Fire risk assessed and interventions discussed. No implant(s) inserted. 11/21/2022 2:48 PM The procedure site was prepped in the usual sterile fashion. Medic (more content not included)...[facility]03-01-2023 NoteHNO ID: [id number] Author: RT Denver(R) Service: ? Author Type: Technologist Type: Progress Notes Filed: 11/21/2022 2:03 PM Note Text: Radiology Service Progress Note PATIENT NAME: Niranjan Ricardo DATE OF SERVICE: November 21, 2022 TIME: 2:02 PM PATIENT IDENTITY VERIFICATION COMPLETED USING TWO (2) IDENTIFIERS: Name and Date of confirmed by patient verbally. FALL SCREENING: Has the patient had 2 falls in the last year or 1 fall with injury or currently using an Ambulatory Assistive Device (Walker, Cane, Wheelchair, Crutches, etc.)? No PATIENT GENDER DATA: Female. status: : No status: NO. PATIENT RELEVANT IMPLANT DATA REVIEWED: Yes RADIOLOGY DEPARTMENT: General X-ray: Exam(s) Completed: Upper Extremity X-Ray(s): Fingers/Thumb, bilateral PERIPHERAL IV DATA: Not applicable SIGNED BY: RT Denver(R) November 21, 2022 2:02 [facility]03-01-2023 History of Present illness Narrative* Isma Kwon PA-C - 11/21/2022 2:24 PM ESTAssociated Order(s): Additional Injections: bilateral long A1 Post-Procedure Diagnose(s): Trigger index finger of right hand; Trigger finger, left middle finger The patient is sent for evaluation and an opinion regarding treatment by , who will receive a copy of this report by mail or through the shared medical record. CHIEF COMPLAINT: Niranjan Ricardo is a 72 year old female who presents today for new evaluation ofbilateral middle finger trigger fingers. 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 She mentions that the left finger has been going on for about a year and a right finger for a few months. Left fingers worse than right. She states that this is very bothersome and painful especially when they lock. 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 She has not had any treatment for this but has a history of bilateral trigger thumb which were treated with surgery in the 's. Previous treatment or work-up includes: as above. ROS: REVIEW OF SYSTEMS: Constitutional: Fever/chills: Yes Cardiovascular: Chest Pain: No Respiratory: SOB: No Musculoskeletal: as noted in the HPI Neurologic: as noted in the HPI Endocrine: Diabetes: - Tobacco user? No SOCIAL HISTORY: Tobacco Use: Not on file FAMILY HISTORY: No family history on file. PAST MEDICAL HISTORY Diagnosis Date NEGATIVE MEDICAL HISTORY No pneumo, tb, dm, heart and ca PAST SURGICAL HISTORY Procedure Laterality Date CHOLECYSTECTOMY HX 1971 OTHER 2011 Neck Surgery OTHER 2007 Back Surgery No family history on file. ALLERGIES Allergen Reactions Codeine GI Upset Nicotine Other: See Comments throat hoarse; light headed; H/A's Sulfa (Sulfonamide * Itching Current Outpatient Medications Medication Sig Dispense Refill fluticasone (FLONASE) 50 mcg/actuation nasal spray Use 1 [place] in each nostril daily at bedtime. No current facility-administered medications for this visit. Physical Exam: Vitals: There were no vitals taken for this visit. Body Habitus:well nourished and no acute distress Orientation: Normal: Oriented to person, place and time Psych: normal and appropriate Skin: Color, texture, turgor normal. No rashes or lesions Sensation: sensation to light touch is grossly normal bilaterally Bilateral hand: Examination of bilateral hands skin is intact with no erythema, swelling or ecchymosis. There is positive tenderness and crepitus at bilateral middle fingers A1 pulleys. Negative tenderness or crepitus at any of the other A1 pulleys bilaterally. Sensation on the ulnar, median, radial nerve distributions are intact bilaterally. AIN, PIN, ulnar motor intact bilaterally. Able to make full fist. IMAGING: Final results and radiologist's interpretation, available in the [facility] health record. Images were reviewed with the patient/family members in the office today. 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 No acute fractures or dislocations.Left middle finger with moderate MP, PIP and DIP joint DJD changes. No acute fractures or dislocations noted. Other Tests: none Assessment: (M65.332) Trigger finger, left middle finger (primary encounter diagnosis) (M65.321) Trigger index finger of right hand Plan: Above diagnosis was discussed in detail with the patient today. I explained to her that there is a 2 out of 3 chances that a couple of steroid injections that spaced out in 6 weeks will help alleviate her symptoms. She agreed to do injections today to both middle fingers. I will have her follow-up in 6 weeks for possible repeat injections. Additional Injections: bilateral long A1 for trigger finger Informed Consent Consent Obtained: Verbal [place] Protocol A moment to CARE was completed. SIGN IN Personnel directly involved with the procedure wore the appropriate PPE. Special Equipment: Yes Patient/Surrogate Stated/Verified: Patient name, Date of , Relevant allergies and Intended procedure TIME OUT Intended patient and procedure match the source document(s). Consent documented and matches the intended procedure. Relevant labs, photos, and/or imaging studies have been reviewed. Correct side/site marked and visible. Medications required for procedure verified. Fire risk assessed and interventions discussed. No implant(s) inserted. 11/21/2022 2:48 PM The procedure site was prepped in the usual sterile fashion. Medications (Right): 3 mg betamethasone acetate-betamethasone sodium phosphate 6 mg/mL Medications (Left): 3 mg betamethasone acetate-betamethasone sodium phosphate 6 mg/mL Anesthetics (Right): 0.5 mL lidocaine (PF) 10 mg/mL (1 %) Anesthetics (Left): 0.5 mL lidocaine (PF) 10 mg/mL (1 %) Outcome: tolerated well, no immediate complications Post-injection instructions were reviewed with the patient and the patient voiced understanding of these instructions. SIGN OUT No specimen collected. All instruments, equipment, possible retained foreign bodies accounted for. Post-procedure follow-up management communicated and Plan of Care Visit completed when applicable Patient tolerated procedure well Isma Kwon PA-C This document has been created with the use of voice recognition technology. It may contain inaccuracies: misspellings, inaccurate syntax or word sense that escaped review. [facility] History of Present illness Narrative* RT [place](R) - 11/21/2022 2:02 PM EST Radiology Service Progress Note PATIENT NAME: Niranjan Ricardo DATE OF SERVICE: November 21, 2022 TIME: 2:02 PM PATIENT IDENTITY VERIFICATION COMPLETED USING TWO (2) IDENTIFIERS: Name and Date of confirmedby patient verbally. FALL SCREENING: Has the patient had 2 falls in the last year or 1 fall with injury or currently using an Ambulatory Assistive Device (Walker, Cane, Wheelchair, Crutches, etc.)? No PATIENT GENDER DATA: Female. status: : No status: NO. PATIENT RELEVANT IMPLANT DATA REVIEWED: Yes RADIOLOGY DEPARTMENT: General X-ray: Exam(s) Completed: Upper Extremity X- Ray(s): Fingers/Thumb, bilateral PERIPHERAL IV DATA: Not applicable SIGNED BY: RT [place](R) November 21, 2022 2:02 PM documented in [facility]Gal[facility] NotePROCEDURE: XR FOOT RT MIN 3 VIEWS HISTORY: Pain in right foot COMPARISON: XR foot right 08/09/2022 FINDINGS: BONES:Mechanical fusion of the first metatarsophalangeal joint without is of hardware fracture or loosening. No bone fracture dislocation. Flattening of plantar arch. SOFT TISSUES:No visible soft tissue swelling. EFFUSION:None visible. OTHER: Negative. IMPRESSION: 1. Stable surgical changes without evidence of hardware failure or change in alignment. Electronically authenticated by: GUS OLIVO Date: 2022-09-26 11:08[facility]11-17-2022 NotePROCEDURE: XR FOOT RT MIN 3 VIEWS HISTORY: Pain in right foot COMPARISON: XR foot right 07/19/2022 FINDINGS: BONES:Mechanical fusion of the first metatarsophalangeal joint without hardware fracture or loosening. No bone fracture dislocation. Mild flattening of plantar arch. SOFT TISSUES:No visible soft tissue swelling. Skin pilar have been removed. EFFUSION:None visible. OTHER: Negative. IMPRESSION: 1. Stable surgical changes without evidence of hardware failure or change in alignment. 2. Pes planus. Electronically authenticated by: GUS OLIVO Date: 2022-08-09 15:01[facility]11[facility] Hospital Discharge instructions Patient Education 08/09/2022 13:43:49 Urethral Stricture Urethral Stricture Urethral stricture is narrowing of the tube (urethra) that carries urine from the bladder out of the body. The urethra can become narrow due to scar tissue from an injury or infection. This can make it difficult to pass urine. In women, the urethra opens above the vaginal opening. In men, the urethra opens at the tip of the penis, and the urethra is much longer than it is in women. Because of the length of the male urethra, urethral stricture is much more common in men. This condition is treated with surgery. What are the causes? In both men and women, common causes of urethral stricture include: Urinary tract infection (UTI). Sexually transmitted infection (STI). Use of a tube placed into the urethra to drain urine from the bladder (urinary catheter). Urinary tract surgery. In men, common causes of urethral stricture include: A severe injury to the pelvis. Prostate surgery. Injury to the penis. In many cases, the cause of urethral stricture is not known. What increases the risk? You are more likely to develop this condition if you: Are male. Men who have had prostate surgery are at risk of developing this condition. Use a urinary catheter. Have had urinary tract surgery. What are the signs or symptoms? The main symptom of this condition is difficulty passing urine. This may cause decreased urine flow, dribbling, or spraying of urine. Other symptom of this condition may include: Frequent UTIs. Blood in the urine. Pain when urinating. Swelling of the penis in men. Inability to pass urine (urinary obstruction). How is this diagnosed? This condition may be diagnosed based on: Your medical history and a physical exam. Urine tests to check for infection or bleeding. X-rays. Ultrasound. Retrograde urethrogram. This is a type of test in which dye is injected into the urethra and then an X-ray is taken. Urethroscopy. This is when a thin tube with a light and camera on the end (urethroscope) is used tolook at the urethra. How is this treated? This condition is treated with surgery. The type of surgery that you have depends on the severity of your condition. You may have: Urethral dilation. In this procedure, the narrow part of the urethra is stretched open (dilated) with dilating instruments or a small balloon. Urethrotomy. In this procedure, a urethroscope is placed into the urethra, and the narrow part of the urethra is cut open with a surgical blade inserted through the urethroscope. Open surgery. In this procedure, an incision is made in the urethra, the narrow part is removed, and the urethra is reconstructed. Follow these instructions at home: Take yufh-qhe-ynybten and prescription medicines only as told by your health care provider. If you were prescribed an antibiotic medicine, take it as told by your health care provider. Do notstop taking the antibiotic even if you start to feel better. Drink enough fluid to keep your urine pale yellow. Keep all follow-up visits as told by your health care provider. This is important. Contact a health care provider if: You have signs of a urinary tract infection, such as: ?Frequent urination or passing small amounts of urine frequently. ?Needing to urinate urgently. ?Pain or burning with urination. ?Urine that smells bad or unusual. ?Cloudy urine. ?Pain in the lower abdomen or back. ?Trouble urinating. ?Blood in the urine. ?Vomiting or being less hungry than normal. ?Diarrhea or abdominal pain. ?Vaginal discharge, if you are female. Your symptoms are getting worse instead of better. Get help right away if: You cannot pass urine. You have a fever. You have swelling, bruising, or discoloration of your genital area. This includes the penis, scrotum, and inner thighs for men, and the outer genital organs (vulva) and inner thighs for women. You develop swelling in your legs. You have difficulty breathing. Summary Urethral stricture is narrowing of the tube (urethra) that carries urine from the bladder out of the body. The urethra can become narrow due to scar tissue from an injury or infection. This condition can make it difficult to pass urine. This condition is treated with surgery. The type of surgery that you have depends on the severity of your condition. Contact a health care provider if your symptoms get worse or you have signs of a urinary tract infection. This information is not intended to replace advice given to you by your health care provider. Make sure you discuss any questions you have with your health care provider. Document Released: 10/05/2016 Document Revised: 04/22/2019 Document Reviewed: 04/22/2019 [employer] Patient Education 2020 [employer]. Follow Up Care 01/22/2022 10:58:28 With:JASS WILLIAMSON, BREANNA Albert, URL Address: [address] [place] [address] When:6 months [facility] [place] 10-27-2022 NotePROCEDURE: XR FOOT RT MIN 3 VIEWS HISTORY: Pain in right foot COMPARISON: XR foot right 06/28/2022 FINDINGS: BONES:Mechanical fusion of the first metatarsophalangeal joint via dorsal plate and screws. No hardware fracture or loosening. Moderate flattening of plantar arch. No bone fracture dislocation. SOFT TISSUES:Mild distal dorsal soft tissue swelling and skin pilar. EFFUSION:None visible. OTHER: Negative. IMPRESSION: 1. Stable surgical changes without evidence of hardware failure or change in alignment. Electronically authenticated by: GUS OLIVO Date: 2022-07-19 18:21[facility]10-06-2022 NotePROCEDURE: XR FOOT RT MIN 3 VIEWS COMPARISON: 06/28/2022 HISTORY: Postoperative visit FINDINGS: BONES:Interval correction of hallux valgus. Anatomic alignment with no mechanical failure. Likely bone graft harvesting with lucency in the distal tibia. SOFT TISSUES:Soft tissue swelling. Surgical skin pilar EFFUSION:None visible. OTHER: Bone detail is obscured by a posterior splint IMPRESSION: Fusion first metatarsal-phalangeal joint Electronically authenticated by: ANAND EDUARDO Date: 2022-06-28 18:33[facility]10-06-2022 NotePROCEDURE: XR FOOT RT 2V COMPARISON: 05/02/2022 HISTORY: Surgical procedure FINDINGS: 7 fluoroscopic images. 28 seconds of fluoroscopy 7 images demonstrate correction of hallux valgus deformity and fusion of the first metatarsal-phalangeal joint with a dorsal plate and multiple screws. Anatomic alignment IMPRESSION: First metatarsal-phalangeal joint fusion Electronically authenticated by: ANAND EDUARDO Date: 2022-06-28 18:31[facility]08-11-2022 NotePROCEDURE: XR FOOT RT MIN 3 VIEWS COMPARISON: None. HISTORY: Pain in right foot FINDINGS: BONES:No acute fracture or dislocation. Flattening of the plantar arch. Mild enthesopathic spurring of the calcaneus. Moderate hallux valgus. Moderate osteoarthropathy first metatarsal-phalangeal joint SOFT TISSUES:Negative. No visible soft tissue swelling. EFFUSION:None visible. OTHER: Negative. IMPRESSION: Degenerative changes, pes planus and hallux valgus Electronically authenticated by: ANAND EDUARDO Date: 2022-05-03 07:10[id number] Evaluation [facility]* Encounter Date Diagnosis Assessment Notes Treatment Notes Treatment Clinical Notes Mar, Hyperglycemia (ICD-10 - R73.9) Discussed blood sugar results with patient today. Glucose is 97. HgA1C is 5.8 which is at the higher end of normal. She is encouraged to watch her intake of carbs and sugars. Stay active. She voices that she did give up drinking apple juice last year. Mar, Hyperlipidemia (ICD-10 - E78.5) Discussed chlolesterol results with patient today. Total is 199. HDL is 56. LDL is 132. Triglycerides are 55. We discussed her LDL today, her VLDL is 11 and I explained to her that we want to see this reading below 30 so her level is very good. I encouraged her to continue to monitor her intake of carbs and sugars. Stay active. Mar, Leukopenia (ICD-10 - D72.819) Her white blood cell count is 3.5. I did explain to her that this is something that we can continue to monitor. She is in agreement to this plan. Mar, Bunion of great toe (ICD-10 - M21.619) right great toe She voices that she has a bunion on her right great toe, she voices that when she stands it is worse, and she develops a hammer toe. She saw Dr. Fall for this. She has a corn on the last toe of the right foot and that is painful for her. If she does not get wide enough shoes her toes will hurt. She is on her feet all the time. If she is barefooted or does not wear the correct shoes then she would be in pain. She voices that Dr. Fall would not do surgery for her, and she is ready to have surgery, he told her to return in 5-10 years, and she voices that this is too long for her to wait because of her age. She was very frustrated by this. She would like to see a different specialist for a second opinion but would like to wait until the winter. She would like to see Dr. Swartz for evaluation and a referral is provided. Mar, Weight loss (ICD-10 - R63.4) She has lost 3.5 pounds since last seen. Mar, Cystitis (ICD-10 - N30.90) She voices that she continues to take the antibiotic and is still following with Dr. Jauregui. When she provides urine samples she still has blood in her urine and was told that this is normal for her. 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 mygola Other 05-16-2022 NoteHISTORY: Bone density screening. COMPARISON: None available. PROCEDURE: Imaging of the lumbar spine and bilateral hips was obtained for bone density evaluation. FINDINGS: REGION BMD (g/cm??) YOUNG ADULT T-SCORE AGE-MATCHED Z-SCORE LEFT NECK 0.817 -0.3 1.7 RIGHT NECK 0.737 -1.0 1.0 LUMBAR 1.079 0.3 2.6 The mean BMD and corresponding T-score listed above indicate: Osteopenia and places the patient at a mild to moderate increased risk for fracture. There may be a future risk of developing osteoporosis. Recommend follow-up exam in 1 year, sooner as clinically necessary. Comment: The T-score is the primary focus of the interpretation of a patient???s bone mineral density measurement. The T-score is the number of standard deviations and individual is above or below the mean value for a young female having normal bone mass. The WHO defines osteoporosis based on the T-score value: +1.0 to -0.9 : Normal bone mass -1.0 to -2.5 : Osteopenia and thus may be at future risk of fracture. -2.6 to -5.0 : Osteoporosis and at significantly increased risk of fracture. IMPRESSION: OSTEOPENIA : ONE YEAR FOLLOW-UP RECOMMENDED Report reported and signed by Golden Magdaleno on 02/05/2022 [id number]05-02-[facility]22 Hospital Discharge instructions Patient Education 01/22/2022 10:53:40 Acute Urinary Retention, Female Acute Urinary Retention, Female Acute urinary retention is a condition in which a person is unable to pass urine. This can last fora short time or for a long time. If left untreated, it can result in kidney damage or other seriouscomplications. What are the causes? This condition may be caused by: Obstruction or narrowing of the tube that drains the bladder (urethra). This may be caused by surgery or problems with nearby organs, which can press or squeeze the urethra. Problems with the nerves in the bladder. These can be caused by diseases, such as multiple sclerosis, or by spinal cord injuries. Certain medicines. Tumors in the area of the pelvis, bladder, or urethra. Degenerative cognitive conditions such as delirium or dementia. Diabetes. Vaginal childbirth. Bladder or urinary tract infection. Constipation. Blood in the urine (hematuria). Injury to the bladder or urethra. Psychological (psychogenic) conditions. Someone may hold her urine due to trauma or because she does not want to use the bathroom. What are the signs or symptoms? Symptoms of this condition include: Trouble urinating. Pain in the lower abdomen. How is this diagnosed? This condition is diagnosed based on a physical exam and a medical history. You may also have othertests, including: An ultrasound of the bladder or kidneys or both. Blood tests. A urine analysis. Additional tests may be needed such as an MRI, kidney, or bladder function tests. How is this treated? Treatment for this condition may include: Medicines. Placing a thin, sterile tube (catheter) into the bladder to drain urine out of the body. This is called an indwelling urinary catheter. After being inserted, the catheter is held in place with a small balloon that is filled with sterile water. Urine drains from the catheter into a collection bag outside of the body. Behavioral therapy. Treatment for any underlying conditions. If needed, you may be treated in the hospital for kidney function problems or to manage other complications. Follow these instructions at home: Take lfuf-xhy-dhogzme and prescription medicines only as told by your health care provider. Avoid certain medicines, such as decongestants, antihistamines, and some prescription medicines. Do not take any medicine unless your health care provider has approved. If you were given an indwelling urinary catheter, take care of it as told by your health care provider. Drink enough fluid to keep your urine clear or pale yellow. If you were prescribed an antibiotic, take it as told by your health care provider. Do not stop taking the antibiotic even if you start to feel better. Do not use any products that contain nicotine or tobacco, such as cigarettes and e-cigarettes. If you need help quitting, ask your health care provider. Monitor any changes in your symptoms. Tell your health care provider about any changes. If instructed, monitor your blood pressure at home. Report changes as told by your health care provider. Keep all follow-up visits as told by your health care provider. This is important. Contact a health care provider if: You have uncomfortable bladder contractions that you cannot control (spasms) or you leak urine withthe spasms. Get help right away if: You have chills or fever. You have blood in your urine. You have a catheter and: ?Your catheter stops draining urine. ?Your catheter falls out. Summary Acute urinary retention is a condition in which a person is unable to pass urine. If left untreated, it can result in kidney damage or other serious complications. This condition may be caused by surgery or problems with nearby organs, which can press or squeeze the urethra. Treatment may include medicines and placement of an indwelling urinary catheter. Monitor any changes in your symptoms. Tell your health care provider about any changes. This information is not intended to replace advice given to you by your health care provider. Make sure you discuss any questions you have with your health care provider. Document Released: 09/08/2007 Document Revised: 08/22/2018 Document Reviewed: 10/11/2017 [employer] Patient Education 2020 [employer]. Follow Up Care 01/23/2021 09:16:54 With:Juventino Arthur MD, Anatoliy Parker [facility] Address: [facility] [address] , [place] [address]- When:07/25/2022 Comments:[facility] Evaluation note* Encounter Date Diagnosis Assessment Notes Treatment Notes Treatment Clinical Notes Sep, Hyperlipidemia (ICD-10 - E78.5) Discussed cholesterol results with patient today. Total is 193. HDL is 57. LDL is 120. Triglycerides are 82. I would like to see her LDL between 70-100. Encouraged her to watch her intake of carbs and sugars. Stay active. Sep, Hyperglycemia (ICD-10 - R73.9) Discussed blood sugar results with patient today. Glucose is 95. HgA1C is 5.7. She admits that she was drinking alot of cranberry and apple juices but then around she stopped drinking juice and switched to cranberry tablets. I encouraged her to watch her intake of carbs and sugars. Stay active. Sep, Leukopenia (ICD-10 - D72.819) Her white blood cell count continues to be low at 3.5. We discussed that this is something that we can continue to monitor. She is comfortable with this. Sep, Cystitis (ICD-10 - N30.90) Dr. Jauregui had her on Macrobid daily through July (2020) and then she came off it but she developed two urine infections so he put her back on it until she is seen in January (2021). She is taking Cranberry capsules instead of cranberry juice. 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 She voices that she has actually lost weight, when she was at the urologist office her weight was 127 pounds. Sep, Other She questions i f she should have [facility] Screening done, I did advise her that if she would like to do this she can. I did recommend that she discuss a DEXA scan with Dr. Schwarz in Oct (2021). We discussed her taking Metamucil to reduce the risk of colon cancer and diverticulitis. She does eat prunes daily. mygola Other 06-01-2009 History general Narrative - Reported* Type Description Date Medical History Pelvic Exam February 2009; Dr. Schwarz Medical History Mammogram February 2009 Medical History Colonoscopy 09-19-09 Medical History No History of EKG/Stress Medical History No history of CT Scan of Abdomen Medical History hgb a1c (5.7) 08-06-09 Medical History Follows with Dr. Manfred garcia for Pap/Pelvic, Bone Scans and Mammograms Medical History rt foot bro 2016 Surgical History trigger thumbs Surgical History gallbladder Surgical History neck Surgical History back Surgical History appendectomy Surgical History tonsilectomy Surgical History ovarian cyst Surgical History tubal ligation Surgical History right ovary and right fallopian tube removed 1969 Surgical History back surgery Dr. Larsen 2004 Surgical History mammogram 04/2016 Surgical History Colonoscopy, Diverti culosis / Dr. Dempsey, no repeat colonoscopy needed 12-02-18 Surgical History nasal surgery 2019 Hospitalization History neck surgery Hospitalization History back surgery Hospitalization History appendectomy Hospitalization History tonsilectomy Hospitalization History ovarian cyst Hospitalization History child x 3 mygola Other [id number] History general Narrative - Reported* Type Description Date Medical History Pelvic Exam February 2009; Dr. Schwarz Medical History Mammogram February 2009 Medical History Colonoscopy 09-19-09 Medical History No History of EKG/Stress Medical History No history of CT Scan of Abdomen Medical History hgb a1c (5.7) 08-06-09 Medical History Follows with Dr. Manfred garcia for Pap/Pelvic, Bone Scans and Mammograms Medical History [facility] Medical History COVID 05/2022 Surgical History trigger thumbs Surgical History gallbladder Surgical History neck Surgical History back Surgical History appendectomy Surgical History tonsilectomy Surgical History ovarian cyst Surgical History tubal ligation Surgical History right ovary and right fallopian tube removed 1969 Surgical History back surgery Dr. Larsen 2004 Surgical History mammogram 04/2016 Surgical History Colonoscopy, Diverti culosis / Dr. Dempsey, no repeat colonoscopy needed 12-02-18 Surgical History nasal surgery 2019 Hospitalization History neck surgery Hospitalization History back surgery Hospitalization History appendectomy Hospitalization History tonsilectomy Hospitalization History ovarian cyst Hospitalization History child x 3 mygola Other Evaluation + Plan note Future Appointments Appointment Date:07/30/2022 09:15:00 AM Scheduled Provider:Juventino Arthur MD, Anatoliy Parker Location:[facility] Appointment Type:URO Office Visit [facility] + Plan note Future Appointments Appointment Date:01/24/2023 09:00:00 AM Scheduled Provider:BREANNA REGAN PA-C Location:[facility] Appointment Type:URO Office Visit [facility] Ruth Ann SOS Online Backup Evaluation + Plan note Future Appointments Appointment Date:01/24/2023 09:00:00 AM Scheduled Provider:BREANNA REGAN PA-C Location:[facility] Appointment Type:URO Office Visit Diagnostic Tests Pending * Urine [facility] Future Appointments Appointment Date:08/01/2023 10:00:00 AM Scheduled Provider:BREANNA REGAN PA-C Location:[facility] Appointment Type:URO Office Visit [facility] Maury SOS Online Backup Evaluation + Plan note Future Appointments Appointment Date:02/13/2024 10:00:00 AM Scheduled Provider:BREANNA REGAN PA-C Location:[facility] Appointment Type:URO Office Visit [facility] Maury SOS Online Backup Evaluation noteNo InformationNort Carsabi Other evaluation noteNo assessment information available [facility] Work Phone: Evaluglngq note* Diagnosis Trigger finger, left middle finger- Primary Trigger index finger of right hand Trigger finger (acquired) [facility] Narrative No data available for this section [facility] Ruth Ann SOS Online Backup Hospital Discharge instructions No data available for this section [facility] [employer] Progress note No data available for this section [facility] [employer] Summary Purpose Family History No Family History Records FoundNo Family History Records FoundNo Family History Records FoundNo Family History Records Found No data available for this section No Family History Records Found Advance Directives No Advanced Directives Records Found Advance Directive Response Recorded Date/ Time Advance Directives No July 10, 2017 1:22pm Advance Directive Response Recorded Date/ Time Advance Directives No July 10, 2017 2:22pm Reason for Referral Reason appt pt needs cons ult to evaluate bunion of right toe Diagnosis 1 Bunion of great toe (M21.619) Referral Organization [facility] Referring Provider First Name Anand Referring Provider Last Name Maryan Referring Provider Specialty Family Prac andi Referred Organization Unknown Facility Referred Provider Nury Swartz Referred Provider Specialty Podiatry - S urgical Chiropody Referral Priority Routine General Notes Luisana Garibay 04/11/2022 10:49:10 AM > referral faxed with visit note and insurance card. pt understands that she will be contacted to schedule this appt. Chief Complaint and Reason for Visit Chief Complaint R73.9 E78.5 D72.819 R63.4 Z79.899 Chief Complaint See order Medications Administered Section Inactive Administered Medications - up to 3 most recent administrations Medication Order MAR Action Action Date Dose Rate Site betamethasone acetate-betamethasone sodium phosphate 3 mg injection (CELESTONE) 3 mg, Injection - FOR ORTHO USE ONLY, ONE TIME INJECTION, 1 dose, Starting on Sat11/21/22 at 1448, Until Sat11/21/22 at 1448 Given 11/21/2022 2:48 PM EST 3 mg Hand, Left betamethasone acetate-betamethasone sodium phosphate 3 mg injection (CELESTONE) 3 mg, Injection - FOR ORTHO USE ONLY, ONE TIME INJECTION, 1 dose, Starting on Sat11/21/22 at 1448, Until Sat11/21/22 at 1448 Given 11/21/2022 2:48 PM EST 3 mg Hand, Right lidocaine (PF) 10 mg/mL (1 %) 0.5 mL injection (XYLOCAINE) 0.5 mL, Injection - FOR ORTHO USE ONLY, ONE TIME INJECTION, 1 dose, Starting on Sat11/21/22 at 1448, Until Sat11/21/22 at 1448 Given 11/21/2022 2:48 PM EST 0.5 mL Hand, Left lidocaine (PF) 10 mg/mL (1 %) 0.5 mL injection (XYLOCAINE) 0.5 mL, Injection - FOR ORTHO USE ONLY, ONE TIME INJECTION, 1 dose, Starting on Sat11/21/22 at 1448, Until Sat11/21/22 at 1448 Given 11/21/2022 2:48 PM EST 0.5 mL Hand, Right Additional Source Comments INFORMATION SOURCE (unrecogn ized section and content) DATE CREATED AUTHOR 02/08/2022 [facility] dical Specialist DATE CREATED AUTHOR AUTHOR'S ORGANIZ ATION 11/23/2022 [facility] DATE CREATED AUTHOR AUTHOR'S ORGANIZ ATION 02/04/2023 [facility] DATE CREATED AUTHOR AUTHOR'S ORGANIZ ATION 04/22/2023 [facility] DATE CREATED AUTHOR AUTHOR'S ORGANIZ ATION 08/23/2023 [facility] REASON FOR VISIT (unrecogniz ed section and content) Reason Comments Radiology XR Reason Comments New Trigger Finger Pain Patient Care team informatio n (unrecognized section and content) Team Status: Active Member Role Status Dates Anand Steinberg DO Primary Care Provider Active Team Status: Inactive Member Role Status Dates Anand Steinberg DO Primary Care Provider, Attending Pro vider Active Community Cultural Development Officer Relationship Specialty Start Date End Date Anand Steinberg DO [address] [place] [address] PCP - General Family Medicine 01/10/18 Community Cultural Development Officer Relationship Specialty Start Date End Date Anand Steinberg DO [address] [place] [address] PCP - General Family Medicine 01/10/18 Goals (unrecognized section and content) Goals may be documented in a n alternate section Source Comments (unrecognize d section and content) In the event this informatio n is protected by the Federal Confidentiality of Alcohol and Drug Abuse Patient Records regulations: The Federal rules restrict any use of the information to criminally investigate or prosecute any alcohol or drug abuse patient.[facility] the event this information is protected by the Federal Confidentiality of Alcohol and Drug Abuse Patient Records regulations: The Federal rules restrict any use of the information to criminally investigate or prosecute any alcohol or drug abuse patient.[facility] FOR RECORDS PERTAINING TO PATIENTS WHO ARE OR HAVE BEEN ENROLLED IN A CHEMICAL DEPENDENCY/SUBSTANCEABUSE PROGRAM, SOME INFORMATION MAY BE OMITTED. This clinical summary was aggregated from multiple sources. Caution should be exercised in using it in the provision of clinical care. This summary normalizes information from multiple sources, and as a consequence, information in this document may materially change the coding, format and clinical context of patient data. In addition, data may be omitted in some cases. CLINICAL DECISIONS SHOULD BE BASED ON THE PRIMARY CLINICAL RECORDS. [facility] [address]. provides no warranty or guarantee of the accuracy or completeness of information in this document.
== END 2023-10-02 10:22 | disposition home or self-care (01) ==
LOC: RAD 10:21
PROVIDERS: PCP Family Medicine; Visit Provider Podiatrist Foot & Ankle Surgery
DX: M79.671 Pain in right foot (principal)
CPT/HCPCS: 73630

== ENCOUNTER 2023-12-11 09:58 | Outpatient (OUT) | payer MEDICARE, SELFPAY ==
--- NOTE | 2023-12-11 | XR_ITS ---
The [address] [address] Patient Name: JAGJIT BEAL MRN: [id number] date: 1950 Sex: F Assigned Patient Location: Current Patient Location: Accession/Order Number: [id number] Exam Date: 12/11/2023 10:05 Report Date: 12/11/2023 13:53 At the request of: NURY PIERRE Procedure: XR foot RT min 3V PROCEDURE: XR foot RT min 3V COMPARISON: 10/02/2023 HISTORY: RIGHT FOOT PAIN FINDINGS: BONES:Prior osteotomy with surgical staple first proximal phalanx, fracture of the stable, unchanged. Fusion the first metatarsal phalangeal joint. Remote resection head of the second proximal phalanx. Remote osteotomy and screw placement at of the second and third metatarsals. Mild enthesopathic spurring the calcaneus at the Achilles and plantar insertions. Partial pes planus SOFT TISSUES:Negative. No visible soft tissue swelling. EFFUSION:None visible. OTHER: Negative. XR/XR foot RT min 3V IMPRESSION: Stable postsurgical and degenerative changes Electronically authenticated by: ANAND EDUARDO Date: 12/11/2023 13:53
== END 2023-12-11 09:59 | disposition home or self-care (01) ==
LOC: EC 09:58
PROVIDERS: PCP Family Medicine; Visit Provider Podiatrist Foot & Ankle Surgery
DX: M79.671 Pain in right foot (principal); Z98.890 Other specified postprocedural states
CPT/HCPCS: 73630

== ENCOUNTER 2024-03-20 09:52 | Outpatient (OUT) | payer MEDICARE, SELFPAY ==
--- NOTE | 2024-03-20 | XR_ITS ---
The [address] [address] Patient Name: JAGJIT BEAL MRN: [id number] date: 1950 Sex: F Assigned Patient Location: Current Patient Location: Accession/Order Number: [id number] Exam Date: 03/20/2024 09:53 Report Date: 03/20/2024 12:40 At the request of: NURY PIERRE Procedure: XR foot RT min 3V PROCEDURE: XR foot RT min 3V COMPARISON: 12/11/2023 HISTORY: RIGHT FOOT PAIN FINDINGS: BONES:No acute fracture or dislocation. Remote fusion of the first metatarsal phalangeal joint. Fracture surgical staple in the first proximal phalanx. Remote osteotomy and screw placement at of the second and third metatarsals. Flattening of the plantar arch. Mild enthesopathic spurring of the calcaneus at the Achilles and plantar insertions SOFT TISSUES:Negative. No visible soft tissue swelling. EFFUSION:None visible. OTHER: Negative. XR/XR foot RT min 3V IMPRESSION: Stable degenerative and postsurgical changes Electronically authenticated by: ANAND EDUARDO Date: 03/20/2024 12:40
--- OUTSIDE RECORDS SUMMARY | 2024-03-20 09:58 | XMS_ITS | CCD ---
Author Organization [facility] Care Team Providers Care General Superintendent Name Role Phone Anand Steinberg Primary Care Physician Anand Steinberg DO Anand Steinberg Primary Care Provider [phone] DO Anand Steinberg Attending Provider Anand Steinberg DO Primary Care Provider ISMA PONCE Attending Unavailable ANAND STEINBERG Primary Care Unavailable ISMA PONCE Referring Unavailable ANAND STEINBERG Primary Care Unavailable Susan Mcgee Unavailable DO Anand Steinberg Primary Care Provider [phone] DO Anand Steinberg Attending Provider NURY SWARTZ Attending Unavailable MARYAN, DR MICHEL Primary Care Unavailable GEOVANI, DR GUS Stephenson Consulting Unavailable NURY SWARTZ Admitting Unavailable NURY SWARTZ Consulting Unavailable MARYAN, DR MICHEL Primary Care Unavailable FREDA MORELAND Admitting Unavailable FREDA MORELAND Attending Unavailable GEOVANI, DR GUS Stephenson Consulting Unavailable FREDA MORELAND Consulting Unavailable GIRSENIA, DR MICHEL Primary Care Unavailable AMADA, FREDA Admitting Unavailable FREDA MORELAND Attending Unavailable GEOVANI, DR GUS Stephenson Consulting Unavailable FREDA MORELAND Consulting Unavailable PAY ., DR TSE Attending [...] Unavailable SHAVONNE, DR ROSA Stoner Admitting Unavailable JAYCE, DR ANAND Parra Consulting Unavailable NADERESeema, DR ROSA Stoner Attending Unavailable NADERESeema, DR ROSA Stoner Consulting Unavailable IGNACIO, NURY Hawkins Consulting Unavailable SAVANNAH TAYLOR Consulting Unavailable DEVI ., ДМИТРИЙ MENDOZA Consulting Unavailable MARTELL العراقي Consulting Unavailable MARYAN, DR MICHEL Primary Care Unavailable AMADA, FREDA Attending Unavailable AMADA, FREDA Admitting Unavailable ZIMARVINER, DR GUS Stephenson Consulting Unavailable AMADA, FREDA Consulting Unavailable GIRSENIA, DR MICHEL Primary Care Unavailable WEST, DR ANAND Parra Consulting Unavailable IGNACIO, NURY Hawkins Attending Unavailable IGNACIO, NURY Hawkins Admitting Unavailable HIGHLANDER, NURY Hawkins Consulting Unavailable Karis Bautista Unavailable Maryan, DO Michel Primary Care Provider [phone] Maryan, DO Michel Attending Provider JASS, BREANNA Albert Attending Unavailable JASS, BREANNA Albert Attending Unavailable JASS, BREANNA Albert Attending Unavailable JASS, BREANNA Albert Admitting Unavailable JASS, BREANNA Albert Attending Unavailable Maryan, DO Michel Primary Care Provider [phone] Maryan, DO Michel Attending Provider Maryan, Anand Primary Care Unavailable Maryan, Anand Attending Unavailable Maryan, Anand Admitting Unavailable Girsenia, Anand Primary Care Unavailable Maryan, Anand Attending Unavailable Girsenia, Anand Admitting Unavailable Girvin, Anand Primary Care Unavailable Girsenia, Anand Attending Unavailable Girsenia, Anand Admitting Unavailable VISCI, ADRY Stoner Attending Unavailable VISCI, ADRY Stoner Referring Unavailable VISCI, ADRY Stoner Referring Unavailable Allergies Allergy Classification Reported Allergen(s) Allergy Type Date of Onset Reaction(s) Facility (20 sources) Codeine; Translations: [codeine] Drug Allergy 01-14-20 18 GI Upset [facility] Other (20 sources) Morphine; Translations: [morphine] Drug Allergy 04-22-20 23 Nausea (finding) [facility] Other (17 sources) Nicotine; Translations: [nicotine] Drug Allergy 12-03-19 19 Headache (finding), Other: See Comments [facility] (9 sources) Sulfonamides (Antibiotic); Translations: [sulfa drugs] Drug allergy Itching [facility] Ruth Ann (20 sources) traMADol; Translations: [tramadol] Drug Allergy 12-03-19 19 Dizzy/Light-he aded, Unknown, Dizziness [facility] Other (3 sources) metaxalone Drug Allergy 04-22-20 Unknown [facility] (15 sources) Sulfonamides (Antibiotic) Drug allergy 04-22-20 Unknown [facility] (13 sources) Carleen-D 12 Hour Propensity to adverse reactions Unknown [facility] Other (15 sources) muscle relaxers Propensity to adverse reactions 04-22-20 dizzy [facility] (13 sources) metaxalone; Translations: [Skelaxin] Drug Allergy Unknown [facility] (9 sources) Sulfonamides (Antibiotic); Translations: [SULFA (SULFONAMIDE ANTIBIOTICS)] Allergy to substance 01-14-20 18 Itching [facility] (1 source) Codeine Drug Allergy [facility] (1 source) Morphine Drug Allergy [facility] (1 source) Nicotine Drug Allergy [facility] (1 source) Sulfonamides (Antibiotic) Drug allergy (disorder) [facility] (2 sources) fexofenadine Drug Allergy 04-22-20 [facility] (2 sources) Pseudoephedrine Drug Allergy 04-22-20 [facility] (1 source) Codeine Drug Allergy 12-03-19 [facility] (1 source) Nicotine Drug Allergy 12-03-19 [facility] (1 source) traMADol Drug Allergy 12-03-19 [facility] Medications Current Medications Medication Drug Class(es) Dates Sig (Normalized) Sig (Original) Acidophilus Probiotic Blend (2 sources) Start: 02-13-2024 take 1 capsule by mouth once daily Acidophilus Probiotic Blend 1 cap(s), Oral, Daily Start Date: 02/13/24 Status: Ordered amoxicillin 875 mg / clavulanate 125 mg oral tablet (3 sources) Penicillin-class Antibacterial Start: 03-27-2023 take 1 tablet by mouth every twelve hours Amoxicillin-Pot Clavulanate 875-125 MG 1 tablet Orally every 12 hrs for 10 day(s) Mar, Active apple cider vinegar 500 mg oral tablet (20 sources) Start: 12-02-2018 End: 02-18-2024 take 500 mg by mouth twice daily Apple Cider Vinegar Active 500 MG PO Twice daily February 18, 2024 2:38pm Apple Cider Vine gar Active biotin 1 mg chewable tablet (15 sources) Start: 03-02-2024 take 1000 ug by mouth once daily Biotin Active 1000 MCG PO Daily March 02, 2024 12:00am take 1 tablet by neris th every twenty-four hours Biotin 1000 MCG 1 tablet Orally Once a day Active take 1 tablet by neris th every twenty-four hours Biotin 1000 MCG 1 tablet Orally Once a day Active take 1 tablet by mouth once reji y caffeine 200 mg oral tablet (18 sources) Central Nervous System Stimulant, Methylxanthine Start: 12-02-2018 take 1 tablet by mouth twice daily Caffeine (No Doz) 200 mg Tablet Active 200 MG PO Twice daily December 02, 2018 12:00am calcium carbonate 1500 mg oral tablet (13 sources) take 1 tablet by mouth every twelve hours Calcium 600 MG 1 tablet with meals Orally Twice a day Active take 1 tablet by mouth every twe lve hours Calcium 600 MG 1 tablet with meals Orally Twice a day Active calcium carbonate 1500 mg / cholecalciferol 200 unt oral capsule (5 sources) Vitamin D Start: 12-02-2018 take 2 tablets by mouth once daily Calcium Carbonate-Vitamin D3 (Calcium 600 + D(3)) 600 mg calcium- 200 unit Capsule Active 2 TAB PO Daily December 02, 2018 12:00am cetirizine hydrochloride 10 mg oral tablet (20 sources) Histamine-1 Receptor Antagonist Start: 03-02-2024 take 10 mg by mouth once daily Cetirizine Active 10 MG PO Daily March 02, 2024 12:00am Start: 01-23-2021 Zyrtec Dissolv e 10 mg oral tablet, dispersible 10 mg = 1 tab(s), Oral, Daily, PRN for allergy symptoms Start Date: 01/23/21 Status: Ordered take 1 tablet by neris th every twenty-four hours Cetirizine HCl 10 MG 1 tablet Orally Once a day Active Cranberry (20 sources) Non-Standardized Food Allergenic Extract, Non-Standardized Plant Allergenic Extract Start: 03-02-2024 take 500 mg by mouth twice daily at mealtime Cranberry Active 500 MG PO Twice daily March 02, 2024 12:00am administer with meals Start: 01-22-2022 cranberry oral capsule Refill(s) 0 Start Date: 01/22/22 Status: Ordered Cranberry Active D-Mannose (13 sources) D-Mannose Active D-Mannose (2 sources) Start: 03-02-2024 take 1 mg by mouth once D-Mannose Active MG PO March 02, 2024 12:00am docusate sodium 100 mg oral capsule (1 source) Start: 10-29-2023 take 1 capsule by mouth every twenty-four hours Colace 100 MG 1 capsule Orally Once a day Oct, Active Emergen-C Immune Plus - (12 sources) Emergen-C Immune Plus - Orally prn Active Emergen-C Immune Plus - Orally prn Not-Taking ibuprofen 800 mg oral tablet (15 sources) Nonsteroidal Anti-inflammatory Drug Start: 03-02-2024 take 1 tablet by mouth three times daily Ibuprofen Active 1 TAB PO Three times daily March 02, 2024 12:00am FreeTextSi tablet Orally Three times a day; Note: Source Status: Takingprn; Provider: Maryan Michel ( ) take 1 tablet by mouth every eig ht hours Ibuprofen 800 MG 1 tablet Orally Three times a day prn Active Multivitamin (Super Multivitamin) tablet (2 sources) Start: 03-02-2024 take 1 tablet by mouth once daily Multivitamin (Super Multivitamin) tablet Active 1 TAB PO Daily March 02, 2024 12:00am Paxlovid (300/100) 20 x 150 MG & 10 x 100MG (3 sources) Start: 05-24-2022 Paxlovid (300/ 100) 20 x 150 MG & 10 x 100MG as directed Orally two times a day May, Active probiotic (13 sources) probiotic as dir ected Active saccharomyces boulardii 250 mg oral capsule (2 sources) Start: 03-02-2024 take 1 capsule by mouth twice daily Saccharomyces Boulardii (Daily Probiotic (S. Boulardii)) 250 mg capsule Active 250 MG PO Twice daily March 02, 2024 12:00am Super C Complex 500 MG (13 sources) take 1 tablet by mouth twice daily take 1 tablet by mouth twice cynthia ly Super C Complex 500 MG 1 tablet Orally bid Active Vitamin D (13 sources) Vitamin D Active Completed/Discontinued Medications Medication [...] (FLONASE) 50 mcg/actuation nasal spray Use 1 Van Dyne in each nostril daily at bedtime. 0 01/13/2018 Active Comment on above: Use 1 Van Dyne in each nostril daily at bedtime. Ketorolac (12 sources) Nonsteroidal Anti-inflammatory Drug, Cyclooxygenase Inhibitor Start: 12-07-2017 Toradol per 15 mg Nov, 60 mg 10 ml lidocaine hydrochloride 10 mg/ml injection (2 sources) Antiarrhythmic, Amide Local Anesthetic Start: 11-21-2022 End: 11-21-2022 lidocaine (PF) 10 mg/mL (1 %) 0.5 mL injection (XYLOCAINE) Start: 11-21-2022 End: 11-21-2022 lidocaine (PF) 10 mg/mL (1 % ) 0.5 mL injection (XYLOCAINE) meclizine hydrochloride 12.5 mg oral tablet (13 sources) Antiemetic Start: 08-22-2020 take 1 tablet by mouth twice daily as needed Meclizine HCl 12.5 MG 1 tablet ` Orally bid for 10 days Jul, Not-Taking/PRN nitrofurantoin, macrocrystals 50 mg oral capsule (20 sources) Nitrofuran Antibacterial Start: 02-13-2024 End: 02-07-2025 Nitrofurantoin Macrocrystal Discontinued MG PO March 02, 2024 12:00am March 02, 2024 11:23am FreeTextSig: TAKE 1 CAPSULE BY MOUTH Oral Sat, Sat and Sat.; Note: Source Status: Continue; Provider: JUVENTINO SPARROW Start: 08-21-2023 nitrofurantoin macrocrystals 50 mg Cap Refills(s) 0 Start Date: 08/21/23 Status: Ordered Start: 08-15-2021 End: 08-04-2023 nitrofurantoin macrocrystals 50 mg Cap 50 mg = 1 cap(s), Oral, MonWedFri, X 90 day(s), # 39 cap(s), Refills(s) 3, Pharmacy: [facility], 154, cm, 08/09/22 13:18:00 EST, Height/Length Dosing, 57, kg, 08/09/22 13:18:00 EST, Weight Dosing Start Date: 08/09/22 Stop Date: 08/04/23 Status: Ordered Problems Active Problems Problem Classification Problem Date Documented Da te Episodic/Chronic Acquired foot deformities (20 sources) Bunion; Translations: [Hallux valgus (acquired), unspecified foot] Onset: 06-12-2022 Chronic Acquired foot deformities (6 sources) Bunion of unspecified foot; Translations: [Flat foot [pes planus] (acquired), right foot] Onset: 04-11-2022 Resolved: 04-11-2022 Episodic Allergic reactions (16 sources) Environmental allergy; Translations: [Other allergy status, other than to drugs and biological substances] Onset: 04-11-2022 Resolved: 04-11-2022 Episodic Diseases of white blood cells (16 sources) Leukopenia; Translations: [Decreased white blood cell count, unspecified] Onset: 10-06-2021 Resolved: 04-11-2022 Chronic Disorders of lipid metabolism (17 sources) Hyperlipidemia; Translations: [Hyperlipidemia, unspecified] Onset: 10-06-2021 Resolved: 04-11-2022 Chronic E Codes: Natural/environment (1 source) Bitten by dog, initial encounter Episodic Fracture of lower limb (15 sources) Fracture of distal end of fibula; Translations: [Other fracture of upper and lower end of right fibula, initial encounter for closed fracture] 02-28-2024 Episodic Genitourinary symptoms and ill-defined conditions (20 sources) Sensation as if bladder still full; Translations: [Feeling of incomplete bladder emptying] Onset: 01-22-2022 Episodic Open wounds of extremities (1 source) Open bite of left hand, initial encounter Episodic Open wounds of head; neck; and trunk (1 source) Open bite of other part of head, initial encounter Episodic Osteoarthritis (13 sources) Arthritis; Translations: [Unspecified osteoarthritis, unspecified site] Chronic Other aftercare (4 sources) 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; Translations: [OTH RADIOLOGY TRANSCRIPTIONIST CURRENT DRUG THERAPY] Onset: 10-06-2021 Resolved: 04-11-2022 Episodic Other connective tissue disease (2 sources) Triggering of digit; Translations: [Trigger finger, left middle finger] Episodic Other connective tissue disease (8 sources) Pain in right foot; Translations: [Pain in limb] Onset: 07-04-2022 Episodic Other connective tissue disease (2 sources) Foot pain; Translations: [Pain in right foot] 03-02-2024 Episodic Other gastrointestinal disorders (1 source) Constipation; Translations: [Constipation, unspecified] Episodic Other gastrointestinal disorders (1 source) Constipation, unspecified Episodic Other injuries and conditions due to external causes (1 source) Unspecified injury of nose, initial encounter Episodic Other nervous system disorders (2 sources) Numbness and tingling sensation of skin; Translations: [Anesthesia of skin] 03-02-2024 Episodic Other nervous system disorders (2 sources) Anesthesia of skin; Translations: [Disturbance of skin sensation] 03-02-2024 Episodic Other non-traumatic joint disorders (13 sources) Ankle pain; Translations: [Pain in right ankle and joints of right foot] Episodic Other non-traumatic joint disorders (5 sources) Pain in right knee; Translations: [Right knee pain] Onset: 03-02-2024 03-02-2024 Episodic Other nutritional; endocrine; and metabolic disorders (2 sources) Abnormal weight loss Onset: 04-11-2022 Resolved: 04-11-2022 Episodic Other screening for suspected conditions (not mental disorders or infectious disease) (5 sources) Patient encounter status; Translations: [Encounter for screening for malignant neoplasm of colon] 12-02-2018 Episodic Other upper respiratory disease (1 source) Other specified disorders of nose and nasal sinuses Episodic Residual codes; unclassified (1 source) Pain, unspecified; Translations: [Pain] Onset: 11-21-2022 Episodic Residual codes; unclassified (4 sources) Procedure and treatment not carried out due to patient leaving prior to being seen by health care provider; Translations: [PROC AND TX NOT CARRIED OUT PT LEAVE] Onset: 02-01-2023 Episodic Residual codes; unclassified (2 sources) H/O Spinal surgery; Translations: [Other specified postprocedural states] 02-28-2024 Episodic Unclassified (8 sources) Finding of sensation of bladder 01-22-2022 Urinary tract infections (20 sources) Cystitis; Translations: [Other cystitis with hematuria] Onset: 10-06-2021 Resolved: 04-11-2022 Episodic Past or Other Problems Problem Classification Problem Date Documented Da te Episodic/Chronic Diabetes mellitus without complication (5 sources) Hyperglycemia, unspecified; Translations: [Prediabetes] Onset: 10-06-2021 Resolved: 04-11-2022 Episodic Other bone [...] gain Onset: 10-06-2021 Resolved: 10-06-2021 Episodic Other skin disorders (2 sources) Mass [...] Test Name Value Interpretation Reference Range Facility BI MAMMOGRAM DIAGNOSTIC TRAVIS SYNTHESIS RIGHTon 03-16-2024 BI MAMMOGRAM DIAGNOSTIC TOMOSYNTHESIS RIGHT This is a summary report. The complete report is available in the patient's medical record. If you cannot access the medical record, please contact the sending organization for a detailed fax or copy. EXAMINATION: BI MAMMOGRAM DIAGNOSTIC TOMOSYNTHESIS RIGHT CLINICAL HISTORY: Callback COMPARISONS: March 09, 2024 ] Density: Scattered fibroglandular density [2] FINDINGS: [On these additional views, no underlying nodule, mass, suspicious calcification, or distortion is identified. IMPRESSION: BIRADS 3 - Probably Benign Follow-up: Short Interval Follow-up Recommend right breast mammogram in 6 months. Board Certified Radiologists. Accredited by the ACR and FDA. MAMMOGRAPHY IS VERY IMPORTANT TO YOUR HEALTH. THE [place] [employer] GUIDELINES RECOMMEND THAT WOMEN 40 YEARS OF AGE AND OLDER SHOULD HAVE A MAMMOGRAM EVERY YEAR. A REMINDER LETTER WILL BE SENT AT THE APPROPRIATE TIME. TRANSCRIBED BY: ELECTRONICALLY SIGNED BY: Johnathon Del Angel MD Normal Not Available BI US BREAST LIMITED RIGHTon 03-16-2024 BI US BREAST LIMITED RIGHT This is a summary report. The complete report is available in the patient's medical record. If you cannot access the medical record, please contact the sending organization for a detailed fax or copy. FINDINGS: Sonographic evaluation of the right breast demonstrates no worrisome cystic or solid mass lesions. Reference is made to the same day right breat mammogram and prior mammogram of March 09, 2024. IMPRESSION: BI-RADS 3 -Probably Benign. Recommend follow up right breast mammography in 6 months. TRANSCRIBED BY: ELECTRONICALLY SIGNED BY: Johnathon Del Angel MD Normal Not Available BI MAMMOGRAM SCREENING TOMOS YNTHESIS BILATERALon 03-09-2024 BI MAMMOGRAM SCREENING TOMOSYNTHESIS BILATERAL This is a summary report. The complete report is available in the patient's medical record. If you cannot access the medical record, please contact the sending organization for a detailed fax or copy. EXAMINATION: BI MAMMOGRAM SCREENING TOMOSYNTHESIS BILATERAL CLINICAL HISTORY:screening COMPARISON: February 07, 2023. RESULT: Density: Scattered fibroglandular density [2] LEFT BREAST: Stable. Typically benign calcifications. There is no suspicious mass, asymmetry, architectural distortion, or calcification RIGHT BREAST: New 1-2 cm asymmetry upper breast MLO projection mid depth, not clearly localizing on the CC view. IMPRESSION: BIRADS 0 - Need Additional Imaging Evaluation Follow-up: Short Interval Follow-up Recommend right breast spot compression upper breast MLO projection, exaggerated CC view, true lateral view, and targeted right upper quadrant ultrasound. Board Certified Radiologists. Accredited by the ACR and FDA. MAMMOGRAPHY IS VERY IMPORTANT TO YOUR HEALTH. THE [place] [employer] GUIDELINES RECOMMEND THAT WOMEN 40 YEARS OF AGE AND OLDER SHOULD HAVE A MAMMOGRAM EVERY YEAR. A REMINDER LETTER WILL BE SENT AT THE APPROPRIATE TIME. THIS FACILITY UTILIZES A REMINDER SYSTEM TO ENSURE ALL PATIENTS RECEIVE REMINDER NOTIFICATIONS AT THE APPROPRIATE TIME BASED ON THE RECOMMENDATIONS OF THIS EXAM. THIS INCLUDES REMINDERS FOR ROUTINE SCREENING MAMMOGRAMS, DIAGNOSTIC MAMMOGRAMS IN WHICH THE PATIENT IS ASKED TO RETURN FOR ADDITIONAL VIEWS, OR OTHER BREAST IMAGING INTERVENTIONS WHEN APPROPRIATE. THE PATIENT WILL BE PLACED IN THE APPROPRIATE REMINDER SYSTEM INCLUDING A REMINDER AT THE APPROPRIATE TIME FOR ANY PENDING ADDITIONAL VIEWS. TRANSCRIBED BY: ELECTRONICALLY SIGNED BY: Johnathon Del Angel MD Abnormal Not Available DEXA BONE DENSITYon 03-09-20 24 DEXA BONE DENSITY FINDINGS: Dual Femur bone density obtained with a [employer] whole body system: Region BMD Young-Adult Age-Matched Total (g/cm2) (%) T-Score (%) Z-Score Mean 0.770 91 -0.7 126 +1.4 IMPRESSION: Impression: The mean BMD and corresponding T-score indicated above indicate Normal Bone Mass and places the patient at no significant risk for fracture. This information can serve as a baseline with which to compare future studies. Compared to the prior exam of February 05, 2022, +1.2% change is seen. FINDINGS: AP Spine bone density obtained with a [employer] whole body system: Region BMD Young-Adult Age-Matched Total (g/cm2) (%) T-Score (%) Z-Score L1-L4 1.192 114 +1.3 153 +3.8 Impression: The mean BMD and corresponding T-score indicated above indicate Normal Bone Mass and places the patient no significant risk for fracture. This information can serve as a baseline with which to compare future studies. Compared to the prior exam of February 05, 2022, +10.5% change is seen. Comment: The T-score is the primary focus of the interpretation of a patient?s bone mineral density measurement. The T-score is the number of standard deviations an individual is above or below the mean value for a young female having normal bone mass. The WHO defines osteoporosis based on the T-score value? +1.0 to ?0.9: Normal bone mass -1.0 to -2.5: Osteopenia and thus may be at future risk of fracture -2.6 to ?5: Osteoporosis and ?at significantly increased risk of fracture? TRANSCRIBED BY: ELECTRONICALLY SIGNED BY: Johnathon Del Angel MD Normal Not Available XR knee RT 2Von 03-02-2024 XR knee RT 2V [facility] [place] [address] XRay Report Signed Patient: Niranjan Ricardo MR#: [id number] : 1950 Acct:[id number] Age/Sex: 73 / F ADM Date: 03/02/24 Loc: XD Room: Type: [facility] Attending Dr: Anand Steinberg DO Copies to: Anand Steinberg DO Ordering Provider: Anand Steinberg DO Date of Service: 03/02/24 XR/XR knee RT 2V: M25.561 - Pain in right knee RIGHT KNEE - 2 views CLINICAL HISTORY: Swelling of right knee with intermittent pain for 4 months. COMPARISON: None FINDINGS: Joint effusion with likely Thompson's cyst. A calcified loose bodies seen posteriorly. Minimal degenerative change without acute bony process. XR/XR knee RT 2V IMPRESSION: JOINT EFFUSION WITH LIKELY THOMPSON'S CYST. CALCIFIED LOOSE BODIES SEEN POSTERIORLY WITH MINIMAL DEGENERATIVE CHANGE. Impression dictated by: Johnathon Beasley Jr., D.O.03/02/2024 3:57 PM Dictation Location: [place] [address] Transcribed By: [facility] 03/02/24 1557 Dictated By: Johnathon Beasley Jr, DO 03/02/24 1554 Signed By: 03/02/24 1557 Normal [facility] Lab Reportson 02-19-2024 Lab Reports [id number]. 00TIFF Normal [facility] C Urineon 02-15-2024 Bacteria identified Cx Nom (U) Microbiology PROCEDURE: Urine Culture [R1] SOURCE: U CleanCatch BODY SITE: COLLECTED DATE/TIME: 02/13/2024 10:46 EDT RECEIVED DATE/TIME: 02/13/2024 13:02 EDT START DATE/TIME: 02/13/2024 13:02 EDT FREE TEXT SOURCE: JASS WILLIAMSON, BREANNA REGAN PA-C, BREANNA Albert FINAL REPORTS Final Report [] Verified Date/Time: 02/15/2024 11:05 EDT >100,000 cfu/ml Enterococcus faecalis SUSCEPTIBILITY RESULTS LEGEND: S=Susceptible, N/R=Not Reported, Blank=Data not available, or drug not advisable or tested, I=Intermediate, ESBL=Extended spectrum beta-lactamase, R=Resistant, TFG=Thymidine-depende nt strain, BLAKE=Beta-lactamase positive, MARIO=mcg/m;(mg/L), S*=Predicted susceptible interp, R*=Predicted resistant interp Entfaeca Antibiotic MARIO Dilutn MARIO Interp Ampicillin <=2 S Ciprofloxacin <=1 S Daptomycin <=1 S Levofloxacin <=1 S Linezolid <=2 S Nitrofurantoin >64 R Penicillin 8 S Rifampin <=1 S Tetracycline >8 R Vancomycin 1 S Performing Locations R1: This test was performed at: [facility], [address] [place] [address], [id number] , , [facility] Comment on above: Performed By: #### [id number] #### [facility] [place] [address] Screenson 02-14-2024 Screens [id number] .00TIFF [facility] Ambulatory Visit Summaryon 0 02-13-2024 Ambulatory Visit Summary NIRANJAN RICARDO :1950 Visit Date:02/13/2024 Ambulatory Visit Instructions Your Diagnosis Incomplete bladder emptying Your Care Team Attending Physician - BREANNA REGAN PA-C Primary Care Physician - Anand Steinberg DO This Is Your Medications List Contact prescribing physician if questions or concerns cetirizine (Zyrtec Dissolve 10 mg oral tablet, dispersible) cranberry (cranberry oral capsule) lactobacillus acidophilus (Acidophilus Probiotic Blend) nitrofurantoin (nitrofurantoin macrocrystals 50 mg Cap) Procedures Performed Hammer toe operation (07/25/2023), Cystourethroscopy with dilation of urethral stricture (02/19/2019), Cystourethroscopy with dilation of urethral stricture (06/18/2011), Appendectomy, back surgery, Bilateral tubal ligation, Cholecystectomy, Colonoscopy, Release of trigger finger, Removal of ovarian cyst, Tonsillectomy. Discharge Vitals Temperature (Temporal Artery) 36.8 ?C Heart Rate (Peripheral) 60 Respiratory Rate 16 Blood Pressure 104/68 Height 153 cm Height 60 in Weight 54.5 kg Weight 119.9 lb BMI 23.28 What to do next Scheduled Follow-Up Appointments 2023 10:00 AM EST With: BREANNA REGAN PA-C Where: [facility] Patient Educationon 02-13-20 24 Patient Education Obstetrics and Gynecology Urinary Tract [...] this condition includes: ? Antibiotic medicine. ? Tpsg-kyr-qimjevj medicines to treat discomfort. ? Drinking enough [...] these instructions at home: Medicines ? Take tuvx-zbw-vsmdqey and prescription medicines only as told by [...] Revie (more content not included)... Normal [facility] Urology Office/Clinic Noteon 02-13-2024 Urology Office/Clinic Note Chief Complaint 6 month follow up with PVR HPI Staff Niranjan is a 73 y.o. female here for 6 month follow up. Previous Dx: dysuria, incomplete bladder emptying, urethral stricture, recurrent UTI, urinary frequency, urinary urgency. S/P cysto/UD done on 02/19/19. Dysuria: denies, saturday and saturday had a little burning Incomplete bladder emptying: yes, PVR 118 ml Hematuria: denies, it's microscopic Frequency: denies Urgency: denies Nocturia: none Stream: weak stream, she strains Leaking: denies Post void dripping: denies Wearing pads/ Depends: denies Urge incontinence: denies Stress incontinence: denies Incontinence without Sensory Awareness: denies Abdominal pain: denies Flank pain: denies Sexual complaints: _ Review of Systems PHQ Score Initial Depression Screen Score: 0 SCORE Initial Depression Screen Score: 0 SCORE no fever, chills, malaise, myalgia. no rash/lesions. no chest pain, palpitations, or SOB. no abdominal pain, nausea, vomiting. no unilateral calf swelling, redness, pain Physical Exam Vitals & Measurements T: 36.8 ?C(Temporal Artery) HR: 60(Peripheral) RR: 16 BP: 104/68 HT: 60 in HT: 153 cm WT: 54.5 kg WT: 119.9 lb BMI: 23.28 General: nontoxic, NAD Mouth: moist mucosa Lungs: normal respiratory effort Cardio: regular rate, good distal perfusion Abdomen: nondistended, no suprapubic distention or tenderness, no CVA tenderness Neurologic: Grossly normal Skin: No rashes or suspicious lesions Assessment/Plan 1. Recurrent UTI (N30.81: Other cystitis with hematuria) on suppressive Macrobid 3x/wk for recurrent UTIs. working well. occasionally if she feels like she is getting a breakthrough UTI she will double up on the Macrobid for a few days and this seems to work well to keep it at bay. discussed risks/benefits of continuing this, pt would like to continue without changes. reports 3 days ago severe burning. has been improving since taking a few extra doses of Macrobid but is concerned she still is infected. mod leuks, trace hgb on IO UA. will send for cx. advised will tx w/ alternative abx x 1 wk if cx+. Ordered: Complex E&M Add on G2211 E&M of Est. Patient Low 20-29 Min 87730 2. Postinfective urethral stricture in female (N35.12: Postinfective urethral stricture, not elsewhere classified, female) sp UD January 2019 w DLS reports weak stream but doesn't think it's due to stricture, blames it on poor fluid intake. says when she drinks plenty then her stream is a lot better. we talked a lot about good fluid intake today. Ordered: Complex E&M Add on G2211 E&M of Est. Patient Low 20-29 Min 80946 3. Incomplete bladder emptying (R39.14: Feeling of incomplete bladder emptying) PVR 118ml today. 162ml in 2021. not measured at last 2 ovs. discussed double void maneuvers. pt will start doing these. Ordered: 89303 Measure Post Void residual urine and/or bladder capacity by US- non-imaging Complex E&M Add on G2211 E&M of Est. Patient Low 20-29 Min 76265 Urine Culture Urnls Dip Stick Auto w/o Microscopy POC 12589 f/u 6 mos (pt preference) Follow-up With When Contact Information BREANNA REGAN PA-C, URL Within 6 months [address] [place] [address] [facility] (1) Additional Instructions: BREANNA REGAN PA-C, URL [address] [place] [address] [phone] Additional Instructions: Patient Education Urinary Tract Infection, Adult Problem List/Past Medical History Ongoing Dysuria Incomplete bladder emptying Postinfective urethral stricture in female Recurrent UTI Urinary frequency Urinary urgency Historical No qualifying data Procedure/Surgical History Hammer toe operation (07/25/2023), Cystourethroscopy with dilation of urethral stricture (02/19/2019), Cystourethroscopy with dilation of urethral stricture (06/18/2011), Appendectomy, back surgery, Bilateral tubal ligation, Cholecystectomy, Colonoscopy, Release of trigger finger, Removal of ovarian cyst, Tonsillectomy. Medications Acidophilus Probiotic Blend, 1 cap(s), Oral, Daily cranberry oral capsule nitrofurantoin macrocrystals 50 mg [...] lifetime) Tobacco Use:. Never Smokeless Tobacco Use:., 02/13/2024 Family History Diabetes mellitus type 1: Father. Immunizations Vaccine Date Status tetanus-diphtheria toxoids 03/27/2023 Recorded zoster vaccine live 08/06/2018 Recorded Lab Results Ambulatory Point of Care Results Bilirubin Urine Dipstick: Negative (02/13/24 10:10:00) Blood Urine Di (more content not included)... Normal [facility] Comment on above: Result Comment: Elec tronically Signed By: JASS WILLIAMSON, BREANNA Albert\.br\Date and Time Signed: 02/13/24 10:52 EDT A1C with Estimated Average Sherry vieira 10-21-2023 Glucose [Mass/Vol] 117 mg/dL Normal [facility] Comment on above: Result Comment: PERF ORMED BY: [place] [address] PATHOLOGIST MARITIME PILOT RENAN ALLEN M.D. Performed By: #### C BC, A1C WTH eA, LIPID, CMP, TSH3 #### [address] HbA1c (Bld) [Mass fraction] 5.7 % High 4.3-5.6 [facility] Comment on above: Result Comment: Incr eased risk for diabetes: 5.7 - 6.4 diabetes: >6.4 glycemic control for adults with diabetes: <7.0 Performed By: #### C BC, A1C WTH eA, LIPID, CMP, TSH3 #### [facility] [address] [place] [address] Alanine aminotransferase [En zymatic activity/volume] in Serum or PlasmaOrdered By: Anand Steinberg on 10-21-2023 ALT [Catalytic activity/Vol] 13 U/L Normal [facility] Comment on above: Performed By: #### C BC, A1C WTH eA, LIPID, CMP, TSH3 #### [address] Albumin [Mass/volume] in Ser um or Plasma by Bromocresol green (BCG) dye binding methoOrdered By: Anand Steinberg on 10-21-2023 Albumin BCG dye [Mass/Vol] 4.4 g/dL 3.5-5.7 [facility] Alkaline phosphatase [Enzyma tic activity/volume] in Serum or PlasmaOrdered By: Anand Steinberg on 10-21-2023 ALP [Catalytic activity/Vol] 68 U/L Normal 34-104 [facility] Comment on above: Performed By: #### C BC, A1C WTH eA, LIPID, CMP, TSH3 #### [address] Aspartate aminotransferase [ Enzymatic activity/volume] in Serum or PlasmaOrdered By: Anand Steinberg on 10-21-2023 AST [Catalytic activity/Vol] 22 U/L Normal 13-39 [facility] Comment on above: Performed By: #### C BC, A1C WTH eA, LIPID, CMP, TSH3 #### [address] Automated basophil %Ordered By: Anand Steinberg on 10-21-2023 Basophils/100 WBC (Bld) 0.7 % Normal . [facility] Comment on above: Performed By: #### C BC, A1C WTH eA, LIPID, CMP, TSH3 #### [address] Automated basophil countOrde red By: Anand Steinberg on 10-21-2023 Basophils (Bld) [#/Vol] 0.0 10*3/uL Normal 0.0-0.2 [facility] Comment on above: Result Comment: PERF ORMED BY: [place] [address] PATHOLOGIST MARITIME PILOT RENAN ALLEN M.D. Performed By: #### C BC, A1C WTH eA, LIPID, CMP, TSH3 #### [address] [place] [address] [place] Automated blood monocyte cou ntOrdered By: Anand Steinberg on 10-21-2023 Monocytes (Bld) [#/Vol] 0.4 10*3/uL Normal 0.0-0.8 [facility] Comment on above: Performed By: #### C BC, A1C WTH eA, LIPID, CMP, TSH3 #### [address] Automated eosinophil %Ordere d By: Anand Steinberg on 10-21-2023 Eosinophils/100 WBC (Bld) 2.4 % Normal . [facility] Comment on above: Performed By: #### C BC, A1C WTH eA, LIPID, CMP, TSH3 #### [address] Automated eosinophil countOr dered By: Anand Steinberg on 10-21-2023 Eosinophils (Bld) [#/Vol] 0.1 10*3/uL Normal 0.0-0.45 [facility] Comment on above: Performed By: #### C BC, A1C WTH eA, LIPID, CMP, TSH3 #### [address] Automated monocyte %Ordered By: Anand Steinberg on 10-21-2023 Monocytes/100 WBC (Bld) 11.4 % Normal . [facility] Comment on above: Performed By: #### C BC, A1C WTH eA, LIPID, CMP, TSH3 #### [address] Automated neutrophil %Ordere d By: Anand Steinberg on 10-21-2023 Neutrophils/100 WBC (Bld) 42.9 % Normal . [facility] Comment on above: Performed By: #### C BC, A1C WTH eA, LIPID, CMP, TSH3 #### [address] Bilirubin.total [Mass/volume ] in Serum or PlasmaOrdered By: Anand Steinberg on 10-21-2023 Bilirubin [Mass/Vol] 0.7 mg/dL Normal 0.3-1.0 [facility] Comment on above: Performed By: #### C BC, A1C WTH eA, LIPID, CMP, TSH3 #### [facility] [address] [place] [address] [place] Calcium [Mass/volume] in Ser um or PlasmaOrdered By: Anand Steinberg on 10-21-2023 Calcium [Mass/Vol] 9.7 mg/dL Normal 8.6-10.3 [facility] Comment on above: Performed By: #### C BC, A1C WTH eA, LIPID, CMP, TSH3 #### [facility] [address] Carbon dioxide, total [Moles /volume] in Serum or PlasmaOrdered By: Anand Steinberg on 10-21-2023 CO2 [Moles/Vol] 28.5 mmol/L Normal 21.0-31.0 [facility] Comment on above: Performed By: #### C BC, A1C WTH eA, LIPID, CMP, TSH3 #### [facility] [address] [place] [address] [place] Chloride [Moles/volume] in S maria esther or PlasmaOrdered By: Anand Steinberg on 10-21-2023 Chloride [Moles/Vol] 108 mmol/L High 98-107 [facility] Comment on above: Performed By: #### C BC, A1C WTH eA, LIPID, CMP, TSH3 #### [facility] [address] [place] [address] [place] Cholesterol [Mass/volume] in Serum or PlasmaOrdered By: Anand Steinberg on 10-21-2023 Cholesterol [Mass/Vol] 194 mg/dL Normal 140-200 [facility] Comment on above: Chol less than 200 m g/dl low riskChol 201-239 mg/dl borderline riskChol 240 mg/dl and greater high risk Result Comment: Chol less than 200 mg/dl low risk Chol 201-239 mg/dl borderline risk Chol 240 mg/dl and greater high risk Performed By: #### C BC, A1C WTH eA, LIPID, CMP, TSH3 #### [facility] [address] [place] [address] [place] Cholesterol in LDL Calc [Mas s/Vol]Ordered By: Anand Steinberg on 10-21-2023 Cholesterol in LDL [Mass/Vol] 121 mg/dL 0-100 [facility] Comment on above: LDL ATP III CLASSIFI CATIONLDL less than 100 mg/dL OptimalLDL 100-129 mg/dL Near or above optimalLDL 130-159 mg/dL Borderline highLDL 160-189 mg/dL HighLDL greater than 189 mg/dL Very high Cholesterol in VLDL Calc [Ma ss/Vol]Ordered By: Anand Steinberg on 10-21-2023 Cholesterol in VLDL [Mass/Vol] 14 mg/dL [facility] Complete Blood Count Auto Di ffon 10-21-2023 Mean Corpuscular HGB Conc 33.6 g/dL Normal 32.0-35.0 [facility] Comment on above: Performed By: #### C BC, A1C WTH eA, LIPID, CMP, TSH3 #### [facility] [address] NRBC% 0.1 /100{WBC} Normal 0-0.5 [facility] Comment on above: Performed By: #### C BC, A1C WTH eA, LIPID, CMP, TSH3 #### [facility] [address] Comprehensive Metabolic Pane german 10-21-2023 Albumin [Mass/Vol] 4.4 g/dL Normal 3.5-5.7 [facility] Comment on above: Performed By: #### C BC, A1C WTH eA, LIPID, CMP, TSH3 #### [facility] [address] [place] [address] [place] GFR/1.73 sq M.predicted MDRD (S/P/Bld) [Vol rate/Area] mL/min/{1.73_m2} Normal [facility] Comment on above: Performed By: #### C BC, A1C WTH eA, LIPID, CMP, TSH3 #### [facility] [address] Creatinine [Mass/volume] in Serum or PlasmaOrdered By: Anand Steinberg on 10-21-2023 Creatinine [Mass/Vol] 0.87 mg/dL Normal 0.60-1.20 [facility] Comment on above: Performed By: #### C BC, A1C WTH eA, LIPID, CMP, TSH3 #### [facility] [address] Erythrocyte distribution wid th [Ratio] by Automated countOrdered By: Anand Steinberg on 10-21-2023 Erythrocyte distribution width (RBC) [Ratio] 12.9 % Normal 11.9-15.3 [facility] Comment on above: Performed By: #### C BC, A1C WTH eA, LIPID, CMP, TSH3 #### [facility] [address] Erythrocytes [#/volume] in B lood by Automated countOrdered By: Anand Steinberg on 10-21-2023 RBC (Bld) [#/Vol] 4.63 10*6/uL Normal 3.60-5.00 [facility] Comment on above: Performed By: #### C BC, A1C WTH eA, LIPID, CMP, TSH3 #### [address] Glucose [Mass/volume] in Ser um or PlasmaOrdered By: Anand Steinberg on 10-21-2023 Glucose [Mass/Vol] 102 mg/dL High 70-100 [facility] Comment on above: ADA recommended refe rence rangeRandom Glucose Reference Range is dependent on time and content of last meal. Glucose of more than 200 mg/dL in a nonstressed, ambulatory subject supports the diagnosis of Diabetes Mellitus. Result Comment: [place] om Glucose Reference Range is dependent on time and content of last meal. Glucose of more than 200 mg/dL in a nonstressed, ambulatory subject supports the diagnosis of Diabetes Mellitus. ADA recommended reference range Performed By: #### C BC, A1C WTH eA, LIPID, CMP, TSH3 #### [facility] [address] Hematocrit [Volume Fraction] of Blood by Automated countOrdered By: Anand Steinberg on 10-21-2023 Hematocrit (Bld) [Volume fraction] 43.8 % Normal 34.0-46.4 [facility] Comment on above: Performed By: #### C BC, A1C WTH eA, LIPID, CMP, TSH3 #### [facility] [address] Hemoglobin [Mass/volume] in BloodOrdered By: Anand Steinberg on 10-21-2023 Hemoglobin (Bld) [Mass/Vol] 14.7 g/dL Normal 11.8-15.4 [facility] Comment on above: Performed By: #### C BC, A1C WTH eA, LIPID, CMP, TSH3 #### [facility] [address] Leukocytes [#/volume] correc myrna for nucleated erythrocytes in Blood by Automated counOrdered By: Anand Steinberg on 10-21-2023 WBC corrected for nucl RBC Auto (Bld) [#/Vol] 3.8 10*3/uL 3.8-11.6 [facility] Leukocytes [#/volume] in Blo od by Automated countOrdered By: Anand Steinberg on 10-21-2023 WBC (Bld) [#/Vol] 3.8 10*3/uL Normal 3.8-11.6 [facility] Comment on above: Performed By: #### C BC, A1C WT eA, LIPID, CMP, TSH3 #### [facility] [address] Lipid Panelon 10-21-2023 LDL Cholesterol,Calculated 121 mg/dL High 0-100 [facility] Comment on above: Result Comment: LDL ATP III CLASSIFICATION LDL less than 100 mg/dL Optimal LDL 100-129 mg/dL Near or above optimal LDL 130-159 mg/dL Borderline high LDL 160-189 mg/dL High LDL greater than 189 mg/dL Very high Performed By: #### C BC, A1C WTH eA, LIPID, CMP, TSH3 #### [facility] [address] Triglyceride w/Reflex 70 mg/dL Normal 0-149 [facility] Comment on above: Result Comment: TRIG ATP III CLASSIFICATION TRIG less than 150 mg/dL Normal TRIG 150-199 mg/dL Borderline high TRIG 200-500 mg/dL High TRIG greater than 500 mg/dL Very high Standard traceable to the Center for Disease Conrtrol and Prevention (CDC) test method. Performed By: #### C BC, A1C WTH eA, LIPID, CMP, TSH3 #### [address] VLDL CHOLESTEROL 14 mg/dL Normal [facility] Comment on above: Performed By: #### C BC, A1C WTH eA, LIPID, CMP, TSH3 #### [address] Lymphocytes [#/volume] in Bl ood by Automated countOrdered By: Anand Steinberg on 10-21-2023 Lymphocytes (Bld) [#/Vol] 1.6 10*3/uL Normal 1.00-4.8 [facility] Comment on above: Performed By: #### C BC, A1C WTH eA, LIPID, CMP, TSH3 #### [address] Lymphocytes/100 leukocytes i n Blood by Automated countOrdered By: Anand Steinberg on 10-21-2023 Lymphocytes/100 WBC (Bld) 42.6 % Normal . [facility] Comment on above: Performed By: #### C BC, A1C WTH eA, LIPID, CMP, TSH3 #### [address] MCH [Entitic mass] by Automa myrna countOrdered By: Anand Steinberg on 10-21-2023 MCH (RBC) [Entitic mass] 31.8 pg Normal 24.7-34.3 [facility] Comment on above: Performed By: #### C BC, A1C WTH eA, LIPID, CMP, TSH3 #### [address] MCHC Auto (RBC) [Mass/Vol]Or dered By: Anand Steinberg on 10-21-2023 MCHC (RBC) [Mass/Vol] 33.6 g/dL 32.0-35.0 [facility] MCV [Entitic volume] by Auto mated countOrdered By: Anand Steinberg on 10-21-2023 MCV (RBC) [Entitic vol] 94.6 fL Normal 80-100 [facility] Comment on above: Performed By: #### C BC, A1C WTH eA, LIPID, CMP, TSH3 #### [facility] [address] [place] [address] [place] Neutrophils [#/volume] in Bl ood by Automated countOrdered By: Anand Steinberg on 10-21-2023 Neutrophils (Bld) [#/Vol] 1.6 10*3/uL Low 1.8-7.7 [facility] Comment on above: Performed By: #### C BC, A1C WTH eA, LIPID, CMP, TSH3 #### [facility] [address] No Panel InformationOrdered By: Anand Steinberg on 10-21-2023 Estimated GFR (CKD-EPI) > 60.0 mL/Min [facility] Creatinine Clearance (Chem N/A [facility] Nucleated erythrocytes [Pres ence] in Blood by Automated countOrdered By: Anand Steinberg on 10-21-2023 Nucleated RBC Auto Ql (Bld) 0.1 /100{WBC} 0-0.5 [facility] Platelet mean volume [Entiti c volume] in Blood by Automated countOrdered By: Anand Steinberg on 10-21-2023 Platelet mean volume (Bld) [Entitic vol] 9.3 fL Normal 6.3-10.7 [facility] Comment on above: Performed By: #### C BC, A1C WTH eA, LIPID, CMP, TSH3 #### [facility] [address] [place] [address] [place] Platelets [#/volume] in Bloo d by Automated countOrdered By: Anand Steinberg on 10-21-2023 Platelets (Bld) [#/Vol] 180 10*3/uL Normal 150-450 [facility] Comment on above: Performed By: #### C BC, A1C WTH eA, LIPID, CMP, TSH3 #### [place] [address] [place] Potassium [Moles/volume] in Serum or PlasmaOrdered By: Anand Steinberg on 10-21-2023 Potassium [Moles/Vol] 4.2 mmol/L Normal 3.5-5.1 [facility] Comment on above: Performed By: #### C BC, A1C WTH eA, LIPID, CMP, TSH3 #### [facility] [address] Protein [Mass/volume] in Ser um or PlasmaOrdered By: Anand Steinberg on 10-21-2023 Protein [Mass/Vol] 6.4 g/dL Normal 6.4-8.9 [facility] Comment on above: Performed By: #### C BC, A1C WTH eA, LIPID, CMP, TSH3 #### [facility] [address] Serum globulin measurement b y calculation (mass/volume)Ordered By: Anand Steinberg on 10-21-2023 Globulin (S) [Mass/Vol] 2.0 g/dL Normal [facility] Comment on above: Performed By: #### C BC, A1C WTH eA, LIPID, CMP, TSH3 #### [address] Serum or plasma albumin/glob ulin mass ratioOrdered By: Anand Steinberg on 10-21-2023 Albumin/Globulin [Mass ratio] 2.2 {ratio} Normal [facility] Comment on above: Performed By: #### C BC, A1C WTH eA, LIPID, CMP, TSH3 #### [address] Serum or plasma anion gap de terminationOrdered By: Anand Steinberg on 10-21-2023 Anion gap [Moles/Vol] 8.7 mmol/L Normal 6.0-15.0 [facility] Comment on above: Performed By: #### C BC, A1C WTH eA, LIPID, CMP, TSH3 #### [facility] [address] [place] [address] Serum or plasma high density lipoprotein (HDL) cholesterol measurementOrdered By: Anand Steinberg on 10-21-2023 Cholesterol in HDL [Mass/Vol] 59 mg/dL Normal 23-92 [facility] Comment on above: HDL CHOL ATP-III CLA SSIFICATION Cardiovascular RiskHDL > or equal to 60 mg/dL LOWHDL < 40 mg/dL HIGH Result Comment: HDL CHOL ATP-III CLASSIFICATION Cardiovascular Risk HDL > or equal to 60 mg/dL LOW HDL < 40 mg/dL HIGH Performed By: #### C BC, A1C WT eA, LIPID, CMP, TSH3 #### [facility] [address] Serum or plasma total choles terol/high density lipoprotein (HDL) cholesterol mass ratOrdered By: Anand Steinberg on 10-21-2023 Cholesterol.total/Dona sterol in HDL [Mass ratio] 3.3 {ratio} Normal <5.0 [facility] Comment on above: Performed By: #### C BC, A1C WT eA, LIPID, CMP, TSH3 #### [address] Sodium [Moles/volume] in Ser um or PlasmaOrdered By: Anand Steinberg on 10-21-2023 Sodium [Moles/Vol] 141 mmol/L Normal 136-145 [facility] Comment on above: Performed By: #### C BC, A1C WTH eA, LIPID, CMP, TSH3 #### [address] Thyrotropin [Units/volume] i n Serum or PlasmaOrdered By: Anand Steinberg on 10-21-2023 TSH Qn 1.72 m[IU]/L Normal 0.45-5.33 [facility] Comment on above: Result Comment: PERF ORMED BY: [place] [address] PATHOLOGIST MARITIME PILOT RENAN ALLEN M.D. Performed By: #### C BC, A1C WT eA, LIPID, CMP, TSH3 #### [address] Triglyceride [Mass/volume] i n Serum or PlasmaOrdered By: Anand Steinberg on 10-21-2023 Triglyceride [Mass/Vol] 70 mg/dL 0-149 [facility] Comment on above: TRIG ATP III CLASSIF ICATIONTRIG less than 150 mg/dL NormalTRIG 150-199 mg/dL Borderline highTRIG 200-500 mg/dL High TRIG greater than 500 mg/dL Very highStandard traceable to the Center for Disease Conrtrol and Prevention (CDC) test method. Urea nitrogen [Mass/volume] in Serum or PlasmaOrdered By: Anand Steinberg on 10-21-2023 Urea nitrogen [Mass/Vol] 16 mg/dL Normal 7-25 [facility] Comment on above: Performed By: #### C BC, A1C WTH eA, LIPID, CMP, TSH3 #### [facility] [address] Lab Reportson 08-22-2023 Lab Reports [id number] [facility] Ambulatory Visit Summaryon 1 10-21-2022 Ambulatory Visit Summary NIRANJAN RICARDO :1950 Visit Date:08/21/2023 Ambulatory Visit Instructions Your Diagnosis Recurrent UTI Tests Performed Urnls Dip Stick Auto w/o Microscopy POC 84862 Your Care Team Attending Physician - BREANNA [...] Appointments January. 2023 10:00 AM EDT With: BREANNA REGAN PA-C Where: [facility] Patient Educationon 08-21-20 Patient Education Obstetrics [...] these instructions at home: Medicines ? Take xouy-plk-wfvwjqz and prescription medicines only as told by [...] provider. Document Revised: 04/21/2021 Document Reviewed: 04/21/2021 [employer] Patient Education ? 2022 [employer]. Normal [facility] Urology Office/Clinic Noteon 08-21-2023 Urology Office/Clinic Note [...] - BUN 21, Cr 1.02, eGFR 57.371 07/11/23 - BUN 9.4, Cr 0.87, eGFR >60 [...] Contact Information JASS WILLIAMSON, BREANNA Albert, URL [address] [place] [address] [phone] Additional Instructions: 6 mos Patient Education Urinary Tract Infection, Adult, Rhnc-ax-Dryu Documentation recorded by the ramonibesther Egan accurately reflects the services(s) I performed [...] Dipstick: 1+ (30 mg/dl) (08/21/23 10:00:00) Specific [place] Urine Dipstick: 1.020 (08/21/23 10:00:00) Urine Appearance Urine Dipstick: Clear (08/21/23 10:00:00) Urine Color Urine Dipstick: Yellow (08/21/23 10:00:00) (more content not included)... Normal [facility] Comment on above: Result Comment: Elec tronically Signed By: BREANNA REGAN PA-C\.br\Date and Time Signed: 08/21/23 10:39 EST\.br\Electronically Co-Signed By: Pooja Egan\.br\Date and Time Co-Signed: 08/21/23 10:37 EST A1C with Estimated Average [facility] 04-15-2023 Glucose [Mass/Vol] 123 mg/dL Normal [facility] Comment on above: Result Comment: PERF ORMED BY: [place] [address] PATHOLOGIST MARITIME PILOT RENAN ALLEN M.D. Performed By: #### C BC, A1C WTH eA, LIPID, CMP #### [address] HbA1c (Bld) [Mass fraction] 5.9 % High 4.3-5.6 [facility] Comment on above: Result Comment: Incr eased risk for diabetes: 5.7 - 6.4 diabetes: >6.4 glycemic control for adults with diabetes: <7.0 Performed By: #### C BC, A1C WTH eA, LIPID, CMP #### [address] Complete Blood Count Auto Di ffon 04-15-2023 Basophils (Bld) [#/Vol] 0.0 10*3/uL Normal 0.0-0.2 [facility] Comment on above: Result Comment: PERF ORMED BY: [place] [address] PATHOLOGIST MARITIME PILOT RENAN ALLEN M.D. Performed By: #### C BC, A1C WTH eA, LIPID, CMP #### [address] Basophils/100 WBC (Bld) 0.7 % Normal . T [facility] Comment on above: Performed By: #### C BC, A1C WTH eA, LIPID, CMP #### [address] Eosinophils (Bld) [#/Vol] 0.1 10*3/uL Normal 0.0-0.45 [facility] Comment on above: Performed By: #### C BC, A1C WTH eA, LIPID, CMP #### [address] Eosinophils/100 WBC (Bld) 1.9 % Normal . [facility] Comment on above: Performed By: #### C BC, A1C WTH eA, LIPID, CMP #### [address] Erythrocyte distribution width (RBC) [Ratio] 12.9 % Normal 11.9-15.3 [facility] Comment on above: Performed By: #### C BC, A1C WTH eA, LIPID, CMP #### [address] Hematocrit (Bld) [Volume fraction] 41.5 % Normal 34.0-46.4 [facility] Comment on above: Performed By: #### C BC, A1C WTH eA, LIPID, CMP #### [address] Hemoglobin (Bld) [Mass/Vol] 14.0 g/dL Normal 11.8-15.4 [facility] Comment on above: Performed By: #### C BC, A1C WTH eA, LIPID, CMP #### [address] Lymphocytes (Bld) [#/Vol] 1.0 10*3/uL Normal 1.00-4.8 [facility] Comment on above: Performed By: #### C BC, A1C WTH eA, LIPID, CMP #### [address] Lymphocytes/100 WBC (Bld) 32.1 % Normal . [facility] Comment on above: Performed By: #### C BC, A1C WTH eA, LIPID, CMP #### [address] MCH (RBC) [Entitic mass] 31.9 pg Normal 24.7-34.3 [facility] Comment on above: Performed By: #### C BC, A1C WTH eA, LIPID, CMP #### [address] MCV (RBC) [Entitic vol] 94.6 fL Normal 80-100 [facility] Comment on above: Performed By: #### C BC, A1C WTH eA, LIPID, CMP #### [address] Mean Corpuscular HGB Conc 33.7 g/dL Normal 32.0-35.0 [facility] Comment on above: Performed By: #### C BC, A1C WTH eA, LIPID, CMP #### [address] Monocytes (Bld) [#/Vol] 0.3 10*3/uL Normal 0.0-0.8 [facility] Comment on above: Performed By: #### C BC, A1C WTH eA, LIPID, CMP #### [place] [address] [place] Monocytes/100 WBC (Bld) 9.5 % Normal . [facility] Comment on above: Performed By: #### C BC, A1C WTH eA, LIPID, CMP #### [address] Neutrophils (Bld) [#/Vol] 1.8 10*3/uL Normal 1.8-7.7 [facility] Comment on above: Performed By: #### C BC, A1C WTH eA, LIPID, CMP #### [address] Neutrophils/100 WBC (Bld) 55.8 % Normal . [facility] Comment on above: Performed By: #### C BC, A1C WTH eA, LIPID, CMP #### [address] NRBC% 0.1 /100{WBC} Normal 0-0.5 [facility] Comment on above: Performed By: #### C BC, A1C WTH eA, LIPID, CMP #### [address] Platelet mean volume (Bld) [Entitic vol] 9.2 fL Normal 6.3-10.7 [facility] Comment on above: Performed By: #### C BC, A1C WTH eA, LIPID, CMP #### [address] Platelets (Bld) [#/Vol] 167 10*3/uL Normal 150-450 [facility] Comment on above: Performed By: #### C BC, A1C WTH eA, LIPID, CMP #### [address] RBC (Bld) [#/Vol] 4.39 10*6/uL Normal 3.60-5.00 [facility] Comment on above: Performed By: #### C BC, A1C WTH eA, LIPID, CMP #### [facility] [address] WBC (Bld) [#/Vol] 3.2 10*3/uL Low 3.8-11.6 [facility] Comment on above: Performed By: #### C BC, A1C WTH eA, LIPID, CMP #### [address] Comprehensive Metabolic Pane german 04-15-2023 Albumin [Mass/Vol] 4.2 g/dL Normal 3.5-5.7 [facility] Comment on above: Performed By: #### C BC, A1C WTH eA, LIPID, CMP #### [address] Albumin/Globulin [Mass ratio] 1.9 {ratio} Normal [facility] Comment on above: Performed By: #### C BC, A1C WTH eA, LIPID, CMP #### [address] ALP [Catalytic activity/Vol] 66 U/L Normal 34-104 [facility] Comment on above: Performed By: #### C BC, A1C WTH eA, LIPID, CMP #### [address] ALT [Catalytic activity/Vol] 15 U/L Normal 7-52 [facility] Comment on above: Performed By: #### C BC, A1C WTH eA, LIPID, CMP #### [address] Anion gap [Moles/Vol] 9.1 mmol/L Normal 6.0-15.0 [facility] Comment on above: Performed By: #### C BC, A1C WTH eA, LIPID, CMP #### [address] AST [Catalytic activity/Vol] 23 U/L Normal 13-39 [facility] Comment on above: Performed By: #### C BC, A1C WTH eA, LIPID, CMP #### [place] [address] [place] Bilirubin [Mass/Vol] 0.5 mg/dL Normal 0.3-1.0 [facility] Comment on above: Performed By: #### C BC, A1C WTH eA, LIPID, CMP #### [address] Calcium [Mass/Vol] 9.3 mg/dL Normal 8.6-10.3 [facility] Comment on above: Performed By: #### C BC, A1C WTH eA, LIPID, CMP #### [facility] [address] Chloride [Moles/Vol] 107 mmol/L Normal 98-107 [facility] Comment on above: Performed By: #### C BC, A1C WTH eA, LIPID, CMP #### [facility] [address] CO2 [Moles/Vol] 28.9 mmol/L Normal 21.0-31.0 [facility] Comment on above: Performed By: #### C BC, A1C WTH eA, LIPID, CMP #### [address] Creatinine [Mass/Vol] 1.02 mg/dL Normal 0.60-1.20 [facility] Comment on above: Performed By: #### C BC, A1C WTH eA, LIPID, CMP #### [address] GFR/1.73 sq M.predicted MDRD (S/P/Bld) [Vol rate/Area] 57.371 mL/min/{1.73_m2} Normal [facility] Comment on above: Performed By: #### C BC, A1C WTH eA, LIPID, CMP #### [address] Globulin (S) [Mass/Vol] 2.2 g/dL Normal T [facility] Comment on above: Performed By: #### C BC, A1C WTH eA, LIPID, CMP #### [address] Glucose [Mass/Vol] 111 mg/dL High 70-100 [facility] Comment on above: Result Comment: [place] Glucose Reference Range is dependent on time and content of last meal. Glucose of more than 200 mg/dL in a nonstressed, ambulatory subject supports the diagnosis of Diabetes Mellitus. ADA recommended reference range Performed By: #### C BC, A1C WTH eA, LIPID, CMP #### [address] Potassium [Moles/Vol] 4.0 mmol/L Normal 3.5-5.1 [facility] Comment on above: Performed By: #### C BC, A1C WTH eA, LIPID, CMP #### [address] Protein [Mass/Vol] 6.4 g/dL Normal 6.4-8.9 [facility] Comment on above: Performed By: #### C BC, A1C WTH eA, LIPID, CMP #### [address] Sodium [Moles/Vol] 141 mmol/L Normal 136-145 [facility] Comment on above: Performed By: #### C BC, A1C WTH eA, LIPID, CMP #### [address] Urea nitrogen [Mass/Vol] 21 mg/dL Normal 7-25 [facility] Comment on above: Performed By: #### C BC, A1C WTH eA, LIPID, CMP #### [address] Lipid Panelon 04-15-2023 Cholesterol [Mass/Vol] 188 mg/dL Normal 140-200 [facility] Comment on above: Result Comment: Chol less than 200 mg/dl low risk Chol 201-239 mg/dl borderline risk Chol 240 mg/dl and greater high risk Performed By: #### C BC, A1C WTH eA, LIPID, CMP #### [address] Cholesterol in HDL [Mass/Vol] 56 mg/dL Normal 23-92 [facility] Comment on above: Result Comment: HDL CHOL ATP-III CLASSIFICATION Cardiovascular Risk HDL > or equal to 60 mg/dL LOW HDL < 40 mg/dL HIGH Performed By: #### C BC, A1C WTH eA, LIPID, CMP #### [address] Cholesterol.total/Dona sterol in HDL [Mass ratio] 3.4 {ratio} Normal <5.0 [facility] Comment on above: Result Comment: PERF ORMED BY: [place] [address] PATHOLOGIST MARITIME PILOT RENAN ALLEN M.D. Performed By: #### C BC, A1C WTH eA, LIPID, CMP #### [facility] [address] LDL Cholesterol,Calculated 117 mg/dL High 0-100 [facility] Comment on above: Result Comment: LDL ATP III CLASSIFICATION LDL less than 100 mg/dL Optimal LDL 100-129 mg/dL Near or above optimal LDL 130-159 mg/dL Borderline high LDL 160-189 mg/dL High LDL greater than 189 mg/dL Very high Performed By: #### C BC, A1C WTH eA, LIPID, CMP #### [facility] [address] Triglyceride w/Reflex 77 mg/dL Normal 0-149 [facility] Comment on above: Result Comment: TRIG ATP III CLASSIFICATION TRIG less than 150 mg/dL Normal TRIG 150-199 mg/dL Borderline high TRIG 200-500 mg/dL High TRIG greater than 500 mg/dL Very high Standard traceable to the Center for Disease Conrtrol and Prevention (CDC) test method. Performed By: #### C BC, A1C WTH eA, LIPID, CMP #### [facility] [address] VLDL CHOLESTEROL 15 mg/dL Normal [facility] Comment on above: Performed By: #### C BC, A1C WTH eA, LIPID, CMP #### [facility] [address] XR nasal bones min 3V*on XR nasal bones min 3V* [facility] [employer] Other XR nasal bones min 3V* [facility] [employer] Other XR nasal bones min 3V* [address] [facility] [employer] Other XR nasal bones min 3V* [address] [employer] Other XR nasal bones min 3V* XRay Report N [facility] [employer] Other XR nasal bones min 3V* Signed No rt [employer] Other XR nasal bones min 3V* Patient: Niranjan Ricardo MR#: [id number] [employer] Other XR nasal bones min 3V* [id number] No rt [employer] Other XR nasal bones min 3V* : 1950 Acct:[id number] [employer] Other XR nasal bones min 3V* Age/Sex: 72 / F A DM Date: 02/01/23 [employer] Other XR nasal bones min 3V* Loc: XD Room: Typ e: [facility] [employer] Other XR nasal bones min 3V* Attending Dr: Darrick Steinberg DO [employer] Other XR nasal bones min 3V* Copies to: Anand Steinberg, [employer] Other XR nasal bones min 3V* Ordering Provider : Anand Steinberg DO [employer] Other XR nasal bones min 3V* Date of Service: 02/01/23 [employer] Other XR nasal bones min 3V* XR/XR nasal bones min 3V*: Nasal injury;Nasal pain [employer] Other XR nasal bones min 3V* XR nasal bones mi n 3V* 02/01/2023 9:34 PM [employer] Other XR nasal bones min 3V* SIGNS AND SYMPTOM S: Injury to face with abrasions over the nasal bones [employer] Other XR nasal bones min 3V* PROTOCOL: Frontal and lateral radiographs of the nasal bones [employer] Other XR nasal bones min 3V* COMPARISON: None [employer] Other XR nasal bones min 3V* FINDINGS: No rt [employer] Other XR nasal bones min 3V* The bones are in anatomic alignment. There is no evidence of fracture. The paranasal sinuses are [employer] Other XR nasal bones min 3V* well-aerated. The re is soft tissue swelling over the bridge of the nose. [employer] Other XR nasal bones min 3V* 5 XR/XR nasal bones min 3V* [employer] Other XR nasal bones min 3V* IMPRESSION: N [employer] Other XR nasal bones min 3V* No fracture. [employer] Other XR nasal bones min 3V* Soft tissue swell ing is noted over the bridge of the nose. [employer] Other XR nasal bones min 3V* Impression dictat ed by: Valentin Andrade M.D.02/02/2023 2:59 PM [employer] Other XR nasal bones min 3V* Dictation Locatio n: RADIO-PC-13 [employer] Other XR nasal bones min 3V* Transcribed By: Jose DONALDSON 02/02/23 [facility] [employer] Other XR nasal bones min 3V* Dictated By: Valentin Andrade II, MD 02/02/23 [facility] [employer] Other XR nasal bones min 3V* Signed By: No [employer] Other XR nasal bones min 3V* 02/02/23 [facility] [employer] Other CNOVon 11-21-2022 CNOV Office Visit (LOORRM ) NIRANJAN RICARDO ([id number]) 1950 F Date Time Provider Department 11/21/22 [...] (FLONASE) 50 mcg/actuation nasal spray Use 1 [place] in each nostril daily at bedtime. No [...] results and radiologist's interpretation, available in the [facility] health record. Images were reviewed with the [...] trigger finger Informed Consent Consent Obtained: Verbal [place] Protocol A moment to CARE was completed. [...] for proc (more content not included)... Normal [facility] XR DIGIT 3V FRONTAL/LAT/OBL LTon 11-21-2022 XR [...] left 3rd digit (long finger) DIP joints. Autopsy Assistant: CARMELINA Transcribe Date/Time: Nov 21 2022 2:08P Dictated by : EDGAR WOMACK MD This examination was interpreted and the report reviewed and electronically signed by: EDGAR WOMACK MD on Nov 21 2022 2:10PM EST [id number] N Normal [facility] XR DIGIT 3V FRONTAL/LAT/OBL RTon 11-21-2022 XR [...] moderate at the MCP and DIP joints. Autopsy Assistant: CARMELINA Transcribe Date/Time: Nov 21 2022 2:10P Dictated by : EDGAR WOMACK MD This examination was interpreted and the report reviewed and electronically signed by: EDGAR WOMACK MD on Nov 21 2022 2:12PM EST [id number] Normal [facility] Albumin [Mass/volume] in Ser um or PlasmaOrdered By: Anand Steinberg on 10-04-2022 Albumin [Mass/Vol] 4.0 g/dL 3.2-5.5 [facility] Basophils Auto (Bld) [#/Vol] Ordered By: Anand Steinberg on 10-04-2022 Basophils (Bld) [#/Vol] 0.0 10*3/uL 0.0-0.2 [facility] Basophils/100 WBC Auto (Bld) Ordered By: Anand Steinberg on 10-04-2022 Basophils/100 WBC (Bld) 0.3 % . F [facility] Cholesterol [Mass/volume] in Serum or PlasmaOrdered By: Anand Steinberg on 10-04-2022 Cholesterol [Mass/Vol] 191 mg/dL 140-200 [facility] Comment on above: Chol less than 200 m g/dl low riskChol 201-239 mg/dl borderline riskChol 240 mg/dl and greater high risk Cholesterol in LDL Calc [Mas s/Vol]Ordered By: Anand Steinberg on 10-04-2022 Cholesterol in LDL [Mass/Vol] 124 mg/dL 0-100 [facility] Comment on above: LDL ATP III CLASSIFI CATIONLDL less than 100 mg/dL OptimalLDL 100-129 mg/dL Near or above optimalLDL 130-159 mg/dL Borderline highLDL 160-189 mg/dL HighLDL greater than 189 mg/dL Very high Cholesterol in VLDL Calc [Ma ss/Vol]Ordered By: Anand Steinberg on 10-04-2022 Cholesterol in VLDL [Mass/Vol] 9 mg/dL [facility] Creatinine and Glomerular fi ltration rate.predicted panel (S/P/Bld)Ordered By: Anand Steinberg on 10-04-2022 Creatinine [Mass/Vol] 0.92 mg/dL 0.44-1.03 [facility] Eosinophils Auto (Bld) [#/Vo l]Ordered By: Anand Steinberg on 10-04-2022 Eosinophils (Bld) [#/Vol] 0.1 10*3/uL 0.0-0.45 [facility] Eosinophils/100 WBC Auto (Bl d)Ordered By: Anand Steinberg on 10-04-2022 Eosinophils/100 WBC (Bld) 1.8 % . [facility] Erythrocyte distribution wid th Auto (RBC) [Ratio]Ordered By: Anand Steinberg on 10-04-2022 Erythrocyte distribution width (RBC) [Ratio] 12.7 % 11.9-15.3 [facility] Estimated glomerular filtrat ion rate (GFR) non- AmericanOrdered By: Anand Steinberg on 10-04-2022 GFR/1.73 sq M.predicted among non-blacks MDRD (S/P/Bld) [Vol rate/Area] 60 mL/Min [facility] Globulin Calc (S) [Mass/Vol] Ordered By: Anand Steinberg on 10-04-2022 Globulin (S) [Mass/Vol] 2.4 g/dL F [facility] Hematocrit Auto (Bld) [Volum e fraction]Ordered By: Anand Steinberg on 10-04-2022 Hematocrit (Bld) [Volume fraction] 43.7 % 34.0-46.4 [facility] Hemoglobin [Mass/volume] in BloodOrdered By: Anand Steinberg on 10-04-2022 Hemoglobin (Bld) [Mass/Vol] 14.4 g/dL 11.8-15.4 [facility] Leukocytes [#/volume] correc myrna for nucleated erythrocytes in Blood by Automated counOrdered By: Anand Steinberg on 10-04-2022 WBC corrected for nucl RBC Auto (Bld) [#/Vol] 3.3 10*3/uL 3.8-11.6 [facility] Lymphocytes Auto (Bld) [#/Vo l]Ordered By: Anand Steinberg on 10-04-2022 Lymphocytes (Bld) [#/Vol] 1.3 10*3/uL 1.00-4.8 [facility] Lymphocytes/100 WBC Auto (Bl d)Ordered By: Anand Steinberg on 10-04-2022 Lymphocytes/100 WBC (Bld) 39.9 % . [facility] MCH Auto (RBC) [Entitic mass ]Ordered By: Anand Steinberg on 10-04-2022 MCH (RBC) [Entitic mass] 31.0 pg 24.7-34.3 [facility] MCHC Auto (RBC) [Mass/Vol]Or dered By: Anand Steinberg on 10-04-2022 MCHC (RBC) [Mass/Vol] 32.8 g/dL 32.0-35.0 [facility] MCV Auto (RBC) [Entitic vol] Ordered By: Anand Steinberg on 10-04-2022 MCV (RBC) [Entitic vol] 94.3 fL 80-100 F [facility] Monocytes Auto (Bld) [#/Vol] Ordered By: Anand Steinberg on 10-04-2022 Monocytes (Bld) [#/Vol] 0.3 10*3/uL 0.0-0.8 [facility] Monocytes/100 WBC Auto (Bld) Ordered By: Anand Steinberg on 10-04-2022 Monocytes/100 WBC (Bld) 9.7 % . F [facility] Neutrophils Auto (Bld) [#/Vo l]Ordered By: Anand Steinberg on 10-04-2022 Neutrophils (Bld) [#/Vol] 1.6 10*3/uL 1.8-7.7 [facility] Neutrophils/100 WBC Auto (Bl d)Ordered By: Anand Steinberg on 10-04-2022 Neutrophils/100 WBC (Bld) 48.3 % . [facility] No Panel InformationOrdered By: Anand Steinberg on 10-04-2022 Estimated GFR () > 60 mL/Min [facility] Comment on above: GFR estimated refere nce range: According to KDOQI guidelines, <60 ml/min/1.73m2 is sufficient to diagnose a patient with chronic kidney disease. Pharmacy Creatinine Clearance (Chem N/A [facility] Nucleated erythrocytes [Pres ence] in Blood by Automated countOrdered By: Anand Steinberg on 10-04-2022 Nucleated RBC Auto Ql (Bld) 0.1 /100{WBC} 0-0.5 [facility] Platelet mean volume Auto (B ld) [Entitic vol]Ordered By: Anand Steinberg on 10-04-2022 Platelet mean volume (Bld) [Entitic vol] 9.0 fL 6.3-10.7 [facility] Platelets Auto (Bld) [#/Vol] Ordered By: Anand Steinberg on 10-04-2022 Platelets (Bld) [#/Vol] 183 10*3/uL 150-450 [facility] Protein [Mass/volume] in Ser um or PlasmaOrdered By: Anand Steinberg on 10-04-2022 Protein [Mass/Vol] 6.4 g/dL 6.1-7.9 [facility] RBC Auto (Bld) [#/Vol]Ordere d By: Anand Steinberg on 10-04-2022 RBC (Bld) [#/Vol] 4.64 10*6/uL 3.60-5.00 [facility] Serum or plasma alanine lopez otransferase measurement without P-5'-P (enzymatic activiOrdered By: Anand Steinberg on 10-04-2022 ALT No additional P-5'-P [Catalytic activity/Vol] 15 U/L 10-60 [facility] Serum or plasma albumin/glob ulin mass ratioOrdered By: Anand Steinberg on 10-04-2022 Albumin/Globulin [Mass ratio] 1.7 {ratio} [facility] Serum or plasma alkaline bart sphatase measurement (enzymatic activity/volume)Ordered By: Anand Steinberg on 10-04-2022 ALP [Catalytic activity/Vol] 70 U/L 32-92 [facility] Serum or plasma anion gap de terminationOrdered By: Anand Steinberg on 10-04-2022 Anion gap [Moles/Vol] 10.2 mmol/L 6.0-15.0 [facility] Serum or plasma aspartate am inotransferase measurement (enzymatic activity/volume)Ordered By: Anand Steinberg on 10-04-2022 AST [Catalytic activity/Vol] 23 U/L 10-42 [facility] Serum or plasma calcium shwetha urement (mass/volume)Ordered By: Anand Steinberg on 10-04-2022 Calcium [Mass/Vol] 9.4 mg/dL 8.2-10.2 [facility] Serum or plasma chloride julienne surement (moles/volume)Ordered By: Anand Steinberg on 10-04-2022 Chloride [Moles/Vol] 103 mmol/L 95-114 [facility] Serum or plasma glucose shwetha urement (mass/volume)Ordered By: Anand Steinberg on 10-04-2022 Glucose [Mass/Vol] 101 mg/dL 70-100 [facility] Comment on above: ADA recommended refe rence rangeRandom Glucose Reference Range is dependent on time and content of last meal. Glucose of more than 200 mg/dL in a nonstressed, ambulatory subject supports the diagnosis of Diabetes Mellitus. Serum or plasma high density lipoprotein (HDL) cholesterol measurementOrdered By: Anand Steinberg on 10-04-2022 Cholesterol in HDL [Mass/Vol] 57 mg/dL 35-85 [facility] Comment on above: HDL CHOL ATP-III CLA SSIFICATION Cardiovascular RiskHDL > or equal to 60 mg/dL LOWHDL < 40 mg/dL HIGH Serum or plasma potassium me asurement (moles/volume)Ordered By: Anand Steinberg on 10-04-2022 Potassium [Moles/Vol] 4.0 mmol/L 3.5-5.1 [facility] Serum or plasma sodium measu rement (moles/volume)Ordered By: Anand Steinberg on 10-04-2022 Sodium [Moles/Vol] 136 mmol/L 136-146 [facility] Serum or plasma total biliru bin measurement (mass/volume)Ordered By: Anand Steinberg on 10-04-2022 Bilirubin [Mass/Vol] 0.4 mg/dL 0.3-1.2 [facility] Serum or plasma total carbon dioxide measurement (moles/volume)Ordered By: Anand Steinberg on 10-04-2022 CO2 [Moles/Vol] 26.8 mmol/L 22.0-30.0 [facility] Serum or plasma total choles terol/high density lipoprotein (HDL) cholesterol mass ratOrdered By: Anand Steinberg on 10-04-2022 Cholesterol.total/Dona sterol in HDL [Mass ratio] 3.4 {ratio} <5.0 [facility] Serum or plasma urea nitroge n measurement (mass/volume)Ordered By: Anand Steinberg on 10-04-2022 Urea nitrogen [Mass/Vol] 18 mg/dL 9-23 [facility] TSH DL <= 0.005 mIU/L QnOrde red By: Anand Steinberg on 10-04-2022 TSH Qn 1.46 m[IU]/L 0.45-5.33 [facility] Triglyceride [Mass/volume] i n Serum or PlasmaOrdered By: Anand Steinberg on 10-04-2022 Triglyceride [Mass/Vol] 49 mg/dL 35-149 F [facility] Comment on above: TRIG ATP III CLASSIF ICATIONTRIG less than 150 mg/dL NormalTRIG 150-199 mg/dL Borderline highTRIG 200-500 mg/dL High TRIG greater than 500 mg/dL Very highStandard traceable to the Center for Disease Conrtrol and Prevention (CDC) test method. WBC Auto (Bld) [#/Vol]Ordere d By: Anand Steinberg on 10-04-2022 WBC (Bld) [#/Vol] 3.3 10*3/uL 3.8-11.6 [facility] POINT OF CARE GLUCOSEon 10-0 Glucose [Mass/Vol] 118 mg/dL Critically high 74-106 [facility] Comment on above: Performed By: #### P OCGLUC #### [facility] [address] [address] [address] Fidelia Adkins Glucose [Mass/Vol] 119 mg/dL Critically high 74-106 [facility] Comment on above: Performed By: #### P OCGLUC #### [facility] [address] [address] [address] Fidelia Adkins SCREENING MAMMOGRAM W/TRAVIS, BILATERAL*on [...] IS VERY IMPORTANT TO YOUR HEALTH. CURRENT [place] [employer] GUIDELINES RECOMMENDS ANNUAL MAMMOGRAPHY BEGINNING AT AGE 40. THIS FACILITY USUALLY USES A REMINDER SYSTEM TO ENSURE ALL POSITIONS RECEIVED REMINDER NOTIFICATIONS AT THE TIME BASED ON THE RECOMMENDATIONS OF THIS EXAM. Report reported and signed by Gus Shell on 02/07/2022 0849 Normal [facility] Associate Merchandise Planner Additional Injections: nic arabelalbrittany guallpa A1 [facility] Vital Signs Date Time Vital Sign Value Performing Clinician Facility 03-02-2024 11:26-0400 Body height 154.94 cm [facility] 03-02-2024 11:26-0400 Body mass index (BMI) [Ratio] 23.5 kg/m2 [facility] 03-02-2024 11:26-0400 Body temperature 97 [degF] [facility] 03-02-2024 11:26-0400 Body weight 56.38 kg [facility] 03-02-2024 11:26-0400 Diastolic blood pressure 82 mm[Hg] [facility] 03-02-2024 11:26-0400 Heart rate 73 /min [facility] 03-02-2024 11:26-0400 SaO2% (BldA) [Mass fraction] 97 % [facility] 03-02-2024 11:26-0400 Systolic blood pressure 126 mm[Hg] [facility] 02-13-2024 10:16-0400 Body temperature 98.24 [degF] BREANNA JASS [facility] 02-13-2024 10:16-0400 Diastolic blood pressure 68 mm[Hg] BREANNA JASS [facility] 02-13-2024 10:16-0400 Heart rate 60 /min BREANNA JASS [facility] 02-13-2024 10:16-0400 Respiratory rate 16 /min BREANNA JASS [facility] 02-13-2024 10:16-0400 Systolic blood pressure 104 mm[Hg] BREANNA REGAN [facility] 02-13-2024 10:06-0400 Blood Pressure Location BREANNA REGAN [facility] 02-13-2024 10:06-0400 Body temperature 97.7 [degF] BREANNA REGAN [facility] 02-13-2024 10:06-0400 Heart rate 88 /min BREANNA REGAN [facility] 10-29-2023 10:30-0500 Body height 154.94 cm Anand Steinberg Other [facility] Other 10-29-2023 10:30-0500 Body mass index (BMI) [Ratio] 22.48 kg/m2 Anand Steinberg Other [facility] Other 10-29-2023 10:30-0500 Body temperature 97.4 [degF] Anand Steinberg Other [facility] Other 10-29-2023 10:30-0500 Body weight 53.98 kg Anand Steinberg Other [facility] Other 10-29-2023 10:30-0500 Diastolic blood pressure Anand Steinberg Other [facility] Other 10-29-2023 10:30-0500 Respiratory rate 16 /min Anand Steinberg Other [facility] Other 10-29-2023 10:30-0500 SaO2% (BldA) [Mass fraction] 98 % Anand Steinberg Other [facility] Other 10-29-2023 10:30-0500 Systolic blood pressure 118 mm[Hg] Anand Steinberg Other [facility] Other 08-21-2023 10:04-0500 Diastolic blood pressure 72 mm[Hg] BREANNA REGAN [facility] 08-21-2023 10:04-0500 Systolic blood pressure 138 mm[Hg] BREANNA REGAN [facility] 03-27-2023 09:10-0400 Body height 154.94 cm Karis Bautista Other [facility] Other 03-27-2023 09:10-0400 Body mass index (BMI) [Ratio] 23.62 kg/m2 Karis Bautista Other [facility] Other 03-27-2023 09:10-0400 Body temperature 98 [degF] Karis Bautista Other [facility] Other 03-27-2023 09:10-0400 Body weight 56.7 kg Karis Bautista Other [facility] Other 03-27-2023 09:10-0400 Diastolic blood pressure 85 mm[Hg] Karis Bautista Other [facility] Other 03-27-2023 09:10-0400 Respiratory rate 18 /min Karis Bautista Other [facility] Other 03-27-2023 09:10-0400 SaO2% (BldA) [Mass fraction] 100 % Karis Bautista Other [facility] Other 03-27-2023 09:10-0400 Systolic blood pressure 146 mm[Hg] Karis Bautista Other [facility] Other 01-24-2023 09:14-0400 Blood Pressure Location BREANNA JASS [facility] 01-24-2023 09:14-0400 Diastolic blood pressure 75 mm[Hg] BREANNA JASS [facility] 01-24-2023 09:14-0400 Heart rate 63 /min BREANNA JASS [facility] 01-24-2023 09:14-0400 Systolic blood pressure 118 mm[Hg] BREANNA JASS [facility] 08-09-2022 13:11-0500 Blood Pressure Location BREANNA JASS [facility] 08-09-2022 13:11-0500 Diastolic blood pressure 71 mm[Hg] BREANNA JASS [facility] 08-09-2022 13:11-0500 Heart rate 64 /min BREANNA JASS [facility] 08-09-2022 13:11-0500 Systolic blood pressure 137 mm[Hg] BREANNA JASS [facility] 04-11-2022 10:50-0400 Body height 154.94 cm Anand Steinberg Other [facility] Other 04-11-2022 10:50-0400 Body mass index (BMI) [Ratio] 22.58 kg/m2 Anand Steinberg Other [facility] Other 04-11-2022 10:50-0400 Body temperature 98.3 [degF] Anand Jamiesenia Other [facility] Other 04-11-2022 10:50-0400 Body weight 54.21 kg Anand Steinberg Other [facility] Other 04-11-2022 10:50-0400 Diastolic blood pressure 60 mm[Hg] Anand Jamiesenia Other [facility] Other 04-11-2022 10:50-0400 Respiratory rate 16 /min Anand Ayalasenia Other [facility] Other 04-11-2022 10:50-0400 SaO2% (BldA) [Mass fraction] 97 % Anand Ayalasenia Other [facility] Other 04-11-2022 10:50-0400 Systolic blood pressure 128 mm[Hg] Anand Ayalasenia Other [facility] Other 01-22-2022 10:12-0400 Blood Pressure Location Anatoliy Jauregui Jr. [facility] 01-22-2022 10:12-0400 Diastolic blood pressure 78 mm[Hg] Anatoliy Jauregui Jr. [facility] 01-22-2022 10:12-0400 Heart rate 77 /min Anatoliy Jauregui Jr. [facility] 01-22-2022 10:12-0400 Respiratory rate 16 /min Anatoliy Jauregui Jr. [facility] 01-22-2022 10:12-0400 Systolic blood pressure 128 mm[Hg] Anatoliy Juventino Arthur [facility] 10-06-2021 10:50-0500 Body height 154.94 cm Anand Steinberg Other [facility] Other 10-06-2021 10:50-0500 Body mass index (BMI) [Ratio] 23.24 kg/m2 Anand Steinberg Other [facility] Other 10-06-2021 10:50-0500 Body temperature 97.7 [degF] Anand Steinberg Other [facility] Other 10-06-2021 10:50-0500 Body weight 55.79 kg Anand Steinberg Other [facility] Other 10-06-2021 10:50-0500 Diastolic blood pressure 70 mm[Hg] Anand Steinberg Other [facility] Other 10-06-2021 10:50-0500 Respiratory rate 18 /min Anand Steinberg Other [facility] Other 10-06-2021 10:50-0500 SaO2% (BldA) [Mass fraction] 96 % Anand Steinberg Other [facility] Other 10-06-2021 10:50-0500 Systolic blood pressure 110 mm[Hg] Anand Steinberg Other [facility] Other Encounters Encounter Date Encounter Type Care Provider Facility Start: 03-16-2024 ambulatory ADRY A VISCI Not Amara ilable Start: 03-09-2024 End: 03-09-2024 ambulatory ADRY A VISCI Not Available Start: 03-02-2024 End: 03-02-2024 Patient encounter procedure DO Anand Steinberg Work Phone: [facility] [place] Work Phone: Start: 03-02-2024 End: 03-02-2024 ambulatory DO Anand Steinberg Work Phone: [facility] Work Phone: Start: 03-02-2024 End: 03-02-2024 ambulatory [facility] Work Phone: Start: 03-02-2024 End: 03-02-2024 Patient encounter procedure [facility] Work Phone: Start: 02-13-2024 End: 02-14-2024 ambulatory BREANNA REGAN Facility:[facility] Start: 02-13-2024 End: 02-13-2024 Lab Drop off BREANNA REGAN [facility] Start: 02-13-2024 End: 02-13-2024 Patient encounter procedure BREANNA REGAN [facility] Start: 12-26-2023 End: 12-26-2023 ambulatory ADRY A VISCI Not Available Start: 10-29-2023 End: 10-29-2023 ambulatory Anand Steinberg Other [facility] Other Start: 10-29-2023 Office outpatient vi sit 25 minutes Anand Steinberg [facility] [place] Start: 10-21-2023 End: 10-21-2023 Patient encounter procedure DO Anand Steinberg Work Phone: [facility] [place] Work Phone: Start: 10-21-2023 End: 10-21-2023 ambulatory DO Anand Steinberg Work Phone: [facility] Work Phone: Start: 08-21-2023 End: 08-22-2023 ambulatory BREANNA REGAN Facility:[facility] Start: 08-21-2023 End: 08-21-2023 Patient encounter procedure BREANNA REGAN [facility] Start: 04-15-2023 End: 04-15-2023 ambulatory Anand Steinberg Facility:[facility] Start: 03-27-2023 End: 03-27-2023 ambulatory Anand Steinberg Other [facility] Other Start: 03-27-2023 Office outpatient vi sit 15 minutes Karis Bautista [facility] [place] Start: 03-27-2023 Telephone encounter Anand Steinebrg [facility] Start: 02-01-2023 End: 02-01-2023 Patient encounter procedure DO Anand Steinberg Work Phone: [facility] Work Phone: Start: 02-01-2023 End: 02-01-2023 ambulatory DO Anand Steinberg Work Phone: [facility] Work Phone: Start: 02-01-2023 Telephone encounter Anand Steinberg [facility] Start: 02-01-2023 End: 02-01-[address] CARMENCITA MADSEN . Facility: Start: 01-24-2023 End: 01-24-2023 Patient encounter procedure BREANNA REGAN [facility] Start: 12-26-2022 End: 12-27-2022 ambulatory NURY SWARTZ Facility: Start: 12-07-2022 End: 12-07-2022 ambulatory Susan Mcgee Other [facility] Other Start: 12-07-2022 Telephone encounter [facility] Start: 11-21-2022 End: 11-21-2022 ambulatory Qiana Fabiandell RT(R) Radiology Comment on above: Radiology XR Start: 11-21-2022 End: 11-21-2022 Patient encounter procedure Qiana Moorel RT(R) ORTH [place] Comment on above: Trigger finger, left middle finger (Primary Dx); Trigger index finger of right hand Start: 10-04-2022 End: 10-04-2022 ambulatory DO Anand Steinberg Work Phone: [facility] Work Phone: Start: 10-04-2022 End: 10-04-2022 Patient encounter procedure DO Anand Steinberg Work Phone: [facility] [place] Work Phone: Start: 09-25-2022 End: 09-26-[address] ANAND STEINBERG Facility: Start: 09-11-2022 End: 09-11-2022 ambulatory Anand Steinberg Other [facility] Other Start: 09-11-2022 Telephone encounter Anand Steinberg [facility] Start: 09-05-2022 End: 09-05-2022 Lab Drop off BREANNA REGAN [facility] Start: 09-05-2022 End: 09-05-2022 Patient encounter procedure BREANNA REGAN [facility] Start: 08-09-2022 End: 08-09-2022 Patient encounter procedure BREANNA REGAN [facility] Start: 08-09-2022 End: 08-10-[address] ANAND STEINBERG Facility:[facility] Start: 07-19-2022 End: 07-20-[address] ANAND STEINBERG Facility:[facility] Start: 06-29-2022 End: 06-29-2022 ambulatory Anand Steinberg Other [facility] Other Start: 06-29-2022 Telephone encounter Anand Steinberg [facility] Start: 06-28-2022 End: 06-29-[address] ANAND STEINBERG Facility:[facility] Start: 06-25-2022 ambulatory NURY Ross SWARTZ Faci lity:[facility] Start: 06-20-2022 End: 06-20-2022 ambulatory Anand Steinberg Other [facility] Other Start: 06-20-2022 Telephone encounter Anand Steinberg [facility] Start: 06-12-2022 [facility] Start: 06-08-2022 End: 06-09-2022 ambulatory NURY SWARTZ Facility:[facility] Start: 06-08-2022 End: 06-09-2022 Encounter for preprocedural cardiovascular examination NURY SWARTZ Facility:[facility] Start: 05-24-2022 End: 05-24-2022 ambulatory Anand Steinberg Other [facility] Other Start: 05-24-2022 Telephone encounter Anand Steinberg [facility] Start: 05-02-2022 End: 05-03-[address] ANAND STEINBERG Facility:[facility] Start: 04-11-2022 End: 04-11-2022 ambulatory Anand Steinberg Other [facility] Other Start: 04-11-2022 Office outpatient vi sit 25 minutes Anand Steinberg [facility] Start: 03-27-2022 End: 03-27-2022 ambulatory Anand Steinberg Other [facility] Other Start: 03-27-2022 Telephone encounter Anand Steinberg [facility] Start: 01-22-2022 End: 01-22-2022 Patient encounter procedure Anatoliy Jauregui Jr. [facility] Start: 10-06-2021 End: 10-06-2021 ambulatory Anand Maryan Other [facility] Other Start: 10-06-2021 Office outpatient vi sit 15 minutes Anand Steinberg [facility] Procedures Date Procedure Procedure Detail Performing Clinician Start: 03-02-2024 X-ray of right knee DO Anand Steinberg Work Phone: Start: 07-25-2023 Hammer toe operation RADHA REGAN Start: 11-21-2022 Injection 1 tendon sheath/ligament aponeurosis [...] ovarian cyst Susan Jauregui Jr. Tonsillectomy Anatoliy james Plan of Treatment Date Care Activity Detail Author Start: 07-30-2024 ambulatory Ambulatory Facility:[facility] Start: 03-02-2024 Patient referral [facility] Work Phone: Start: 10-21-2023 [facility] Start: 02-01-2023 Diagnostic radiography of nasal bones XR nasal bones min 3V* [facility] Start: 09-23-2022 ADVANCE DIRECTIVE DISCUSSION ADVANCE DIRECTIVE DISCUSSION [facility] Start: 09-23-2022 DEPRESSION ASSESSMENT DEPRESSION ASSESSMENT [facility] Start: 05-24-2022 Influenza vaccination INFLUENZA (#1) [facility] Start: 2013 BONE DENSITY BONE DENSITY [facility] Start: 2013 PNEUMOCOCCAL: 65+ (1 - PCV) PNEUMOCOCCAL: 65+ (1 - PCV) [facility] Start: 1998 SHINGRIX VACCINE (1 of 2) SHINGRIX VACCINE (1 of 2) [facility] Start: 1993 COLOGUARD (FIT-DNA) COLOGUARD (FIT-DNA) [facility] Start: 1993 Colonoscopy COLONOSCOPY [facility] Start: 1993 COLORECTAL CANCER SCREENING COLORECTAL CANCER SCREENING [facility] Start: [address] COLONOGRAPHY [facility] Start: 1993 DIABETES SCREEN DIABETES SCREEN [facility] Start: 1993 FECAL OCCULT BLOOD FECAL OCCULT BLOOD [facility] Start: 1993 LIPID SCREEN LIPID SCREEN [facility] Start: 1993 SIGMOIDOSCOPY SIGMOIDOSCOPY [facility] Start: 1988 Mammography MAMMOGRAM [facility] Start: 1967 Urine microalbumin profile DTAP,TDAP,TD (1 - Tdap) [facility] Start: 1966 HEPATITIS C SCREENING HEPATITIS C SCREENING [facility] Start: 1948 COVID-19 VACCINE (#1) COVID-19 VACCINE (#1) [facility] Glucose measurement estimated from glycated hemoglobin [facility] Patient referral [facility] Work Phone: XR Knee - right 2 Views [facility] Immunizations Immunization Date Immunization Notes Care Provider Barak moyer 03-27-2023 tetanus and diphther ia toxoids, adsorbed, preservative free, for adult use (2 Lf of tetanus toxoid and 2 Lf of diphtheria toxoid) BREANNA REGAN [facility] 03-27-2023 tetanus and diphther ia toxoids, adsorbed, preservative free, for adult use (5 Lf of tetanus toxoid and 2 Lf of diphtheria toxoid) [facility] 03-27-2023 tetanus toxoid, reduced diphtheria toxoid, and acellular pertussis vaccine, adsorbed Anand Jamiesenia Other [facility] Other 08-06-2018 zoster vaccine, live CINTIASID Seema HERNANDEZRY [facility] Payers Date Payer Category Payer Self-pay [id number] 2022 Medicare [id number] 2022 Medicare UHC MEDICARE UHC MEDICARE ADVANTAGE PPO [id number] 2022-Present [phone] [address] [address] [place] [address] PPO [id number] 2013 Medicare [id number] 1959 Medicare [id number] [id number] 1959 Private Health Insurance [id number] 1948 Unknown [id number] 2.16.840.1.590096.3.579.2. 593 1948 Unknown [id number] 2.16.840.1.972604.3.579.2. 593 1948 Unknown [id number] 2.16.840.1.019326.3.579.2. 593 1948 Unknown [id number] 2.16.840.1.594179.3.579.2. 593 1948 Unknown [id number] 2.16.840.1.230427.3.579.2. 593 1948 Unknown [id number] 2.16.840.1.396022.3.579.2. 593 1948 Unknown [id number] 2.16.840.1.857495.3.579.2. 593 1948 Unknown [id number] 2.16.840.1.212603.3.579.2. 593 1948 Unknown [id number] 2.16.840.1.393918.3.579.2. 593 1948 Unknown [id number] 2.16.840.1.858226.3.579.2. 727 1948 Unknown [id number] 2.16.840.1.473912.3.579.2. 727 1948 Unknown [id number] 2.16.840.1.275296.3.579.2. 727 1948 Unknown [id number] 2.16.840.1.865166.3.579.2. 727 1948 Unknown [id number] 2.16.840.1.862304.3.579.2. 1259 1948 Unknown [id number] 2.16840.1.991591.3.579.2. 1259 1948 Unknown [id number] 2.16.840.1.135984.3.579.2. 1259 1948 Unknown [id number] 2.16840.1.579710.3.579.2. 1259 1948 Unknown [id number] 2.16840.1.712831.3.579.2. 1259 Private Health Insurance [employer] Mcr PFFS N on Pt [id number] Unknown [id number] 2.16.840.1.453240.3.579.2. 531 Unknown [id number] 2.16.840.1.694282.3.579.2. 531 Social History Date Type Detail Facility Start: 11-17-2018 End: 01-22-2022 Tobacco smoking status Never smoked tobacco (finding) [facility] Other Tobacco smoking status Never [facility] Sex Assigned At Female [facility] Other Start: 1950 Sex Assigned At Female [facility] Tobacco smoking status MEIS Tobacco smoking consumption unknown [facility] Start: 1950 Sex Assigned At Not on file [facility] Functional Status Date Assessment Result Facility 02-13-2024 Functional Status N/A [facility] 08-21-2023 Functional Status N/A [facility] 01-24-2023 Functional Status N/A [facility] 08-09-2022 Functional Status N/A [facility] Clinical Notes 02-21-2009 to 03-02-2024 Note Date & Type Note Facility 03-02-2024 Evaluation note Authored March 02, 2024 12:0 9pm The above note written by __ _Alondra Moreland____ acting as human recorder, note dictated by Dr. Dong .I performed the above HPI, ROS, and Examination. I formulated and dictated the treatment plan and was present for entire encounter. Anand Steinberg D.O. [facility] Work Phone: [phone]) 517-802805-23-2024 Hospital Discharge instructions Patient Education 02/13/2024 10:51:55 Urinary Tract Infection, Adult Urinary Tract Infection, [...] Treatment for this condition includes: Antibiotic medicine. Nhpk-qid-hdlsyzj medicines to treat discomfort. Drinking enough water [...] Follow these instructions at home: Medicines Take uqla-bym-pvqqtiq and prescription medicines only as told by [...] provider. Document Revised: 04/21/2021 Document Reviewed: 04/21/2021 [employer] Patient Education 2022 [employer]. Follow Up Care 08/21/2023 10:35:32 With:BREANNA REGAN PA-C, URL Address: [address] [place] [address] [place] (1) When:6 months With:JASS WILLIAMSON BREANNA Albert, URL Address: [address] [place] [address] [phone] When: Unknown [facility] 02-06-2024 Evaluation note* Encounter Date Diagnosis Assessment Notes Treatment Notes Treatment Clinical Notes Oct, Hyperlipidemia (ICD-10 - E78.5) Discussed cholesterol results with patient today. Total is 194. HDL is 59. LDL is 121. Triglycerides are 70. VLDL is 14. I would like her to continue to monitor her intake of carbs and sugars. Stay active. We discussed her diet today and foods to avoid. Oct, Hyperglycemia (ICD-10 - R73.9) She admits that she was eating jeffrey with apples which may have elevated her blood sugar. She then started to eat raisins and prunes. I did recommend that she avoid raisins and prunes which will raise her blood sugar. She admits that she loves sweets. Her glucose was 102. HgA1C was 5.7 which is at the higher end of normal. Diet was discussed in detail. I did recommend that she cut back on her intake of carbs and sugars. She is very active daily and should continue with this. If she wants to eat an apple then she can, any fruit in it's natural form is good for her to eat. Oct, Leukopenia (ICD-10 - D72.819) Her white blood cell count is 3.8. Will continue to monitor. Oct, Constipation (ICD-10 - K59.00) She voices that she was constipated and was eating jeffery with apples because it helps with her constipation. She found that her blood sugar was elevated so she is going to switch to eating prunes and raisins. I did recommend she avoid both the prunes and the raisins and instead take Colace which is OTC. Oct, Foot pain, right (ICD-10 - M79.671) She continues to follow with Dr. Swartz for her right foot. She had hardware removed from the right foot in July (2022). He added a staple to the toe when she had surgery in the fall (2022) but it was broken when she fell walking across her yard. She can walk but not barefooted. If she steps on a stone it feels like she stepped on a thorn because her foot is so sensitive. She has a low level of inflammation noted. She voices that her foot feels weird . She has had surgery twice on her foot and is not going to have surgery done again. The bunion is gone and she is able to use the foot. She is on her right foot all the time. Oct, Weight loss (ICD-10 - R63.4) She has lost six pounds since last seen. She voices that she got a pony and was told that she needed to lose weight to be able to ride her pony. She wanted to ride the pony so she worked on weight loss and is now able to ride her pony if he lets her. Her TSH is normal at 1.72. Oct, Cystitis (ICD-10 - N30.90) Continue to follow with Breanna Regan PA-C for her urine issues. 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 If she has this done then she should provide the office with a copy of the results. [facility] Other 11-29-2023 Hospital Discharge instructions Patient Education 08/21/2023 10:23:38 Urinary Tract Infection, Adult, Tdky-mn-Pumu Urinary Tract Infection, Adult A urinary tract infection (UTI) is an infection of any part of the urinary tract. The urinary tractincludes: The kidneys. The ureters. The bladder. The [...] Follow these instructions at home: Medicines Take ywzm-tvz-atcvevu and prescription medicines only as told by [...] a female. Use each tissue one time whenyou wipe. Drink enough fluid to keep your [...] provider. Document Revised: 04/21/2021 Document Reviewed: 04/21/2021 [employer] Patient Education 2022 [employer]. Follow Up Care 01/24/2023 09:53:30 With:JASS WILLIAMSON, BREANNA Albert, URL Address: [facility] [address] [facility] [place] [address] [phone] When: Unknown Comments:6 mos [facility] 07-05-2023 Evaluation note* Encounter Date Diagnosis Assessment Notes Treatment Notes Treatment Clinical Notes Mar, Bitten by dog, initial encounter [...] left hand, initial encounter (ICD-10 - S61.452A) [facility] Other 05-12-2023 Evaluation note* Encounter Date Diagnosis Assessment Notes Treatment Notes Treatment Clinical Notes January, Nasal injury (ICD-10 - S09.92XA) January, Nasal pain (ICD-10 - J34.89) [facility] Other 05-04-2023 Hospital Discharge instructions Patient Education [...] Treatment for this condition includes: Antibiotic medicine. Wvcu-lna-cnwwzlz medicines to treat discomfort. Drinking enough water [...] Follow these instructions at home: Medicines Take crlm-ijm-mqdodhn and prescription medicines only as told by [...] provider. Document Revised: 04/21/2021 Document Reviewed: 04/21/2021 [employer] Patient Education 2022 [employer]. Follow Up Care 08/09/2022 13:47:36 With:JASS WILLIAMSON, BREANNA Albert, URL Address: [address] [place] [address] When: Unknown [facility] Ruth Ann 04-05-2023 NotePROCEDURE: XR FOOT RT [...] authenticated by: GUS OLIVO Date: 2022-12-26 09:40[facility]03-01-2023 NoteHNO ID: [id number] Author: Isma Kwon PA-C Service: ? Author Type: Physician Heavy Media Operator Type: Progress Notes Filed: 11/21/2022 2:51 PM [...] (FLONASE) 50 mcg/actuation nasal spray Use 1 Van Dyne in each nostril daily at bedtime. No [...] results and radiologist's interpretation, available in the [facility] health record. Images were reviewed with the [...] trigger finger Informed Consent Consent Obtained: Verbal Sumerco Protocol A moment to CARE was completed. [...] usual sterile fashion. Medic (more content not included)...[facility]03-01-2023 NoteHNO ID: [id number] Author: RT Denver(R) Service: ? Author Type: [...] BY: RT Denver(R) November 21, 2022 2:02 [facility]03-01-2023 History of Present illness Narrative* Isma Kwon [...] which were treated with surgery in the s. Previous treatment or work-up includes: as above. [...] (FLONASE) 50 mcg/actuation nasal spray Use 1 Van Dyne in each nostril daily at bedtime. No [...] results and radiologist's interpretation, available in the [facility] health record. Images were reviewed with the [...] trigger finger Informed Consent Consent Obtained: Verbal Sumerco Protocol A moment to CARE was completed. [...] sense that escaped review. [facility] History of Present illness Narrative* Qiana Bruce, RT(R) - 11/21/2022 2:02 PM EST Radiology Service [...] 21, 2022 2:02 PM [facility]2023 NotePROCEDURE: XR FOOT RT MIN 3 [...] authenticated by: GUS OLIVO Date: 2022-09-26 11:08[facility]11-17-2022 NotePROCEDURE: XR FOOT RT MIN 3 [...] authenticated by: GUS OLIVO Date: 2022-08-09 15:01[facility]11-17-2022 Hospital Discharge instructions Patient Education 08/09/2022 [...] reconstructed. Follow these instructions at home: Take rdxx-wby-tywggbi and prescription medicines only as told by [...] 10/05/2016 Document Revised: 04/22/2019 Document Reviewed: 04/22/2019 [employer] Patient Education 2020 [employer]. Follow Up Care 01/22/2022 10:58:28 With:JASS WILLIAMSON, BREANNA Albert, URL Address: [address] [place] [address] [place] [address] When:6 months [facility] Iron 10-27-2022 NotePROCEDURE: XR FOOT RT MIN 3 [...] authenticated by: GUS OLIVO Date: 2022-07-19 18:21[facility]10-06-2022 NotePROCEDURE: XR FOOT RT MIN 3 [...] authenticated by: ANAND EDUARDO Date: 2022-06-28 18:33[facility]10-06-2022 NotePROCEDURE: XR FOOT RT 2V COMPARISON: 05/02/2022 HISTORY: Surgical procedure FINDINGS: 7 fluoroscopic images. 28 seconds of fluoroscopy 7 images demonstrate correction of hallux valgus deformity and fusion of the first metatarsal-phalangeal joint with a dorsal plate and multiple screws. Anatomic alignment IMPRESSION: First metatarsal-phalangeal joint fusion Electronically authenticated by: ANAND EDUARDO Date: 2022-06-28 18:31[id number] NotePROCEDURE: XR FOOT RT MIN 3 VIEWS [...] authenticated by: ANAND EDUARDO Date: 2022-05-03 07:10[id number] Evaluation note* Encounter Date Diagnosis Assessment Notes [...] that this is normal for her. 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 [employer] Other 05-16-2022 NoteHISTORY: Bone density screening. COMPARISON: [...] signed by Golden Magdaleno on 02/05/2022 [id number]05-02-2022 Hospital Discharge instructions Patient Education 01/22/2022 10:53:40 [...] complications. Follow these instructions at home: Take mnpe-hay-qtxrhxo and prescription medicines only as told by [...] 09/08/2007 Document Revised: 08/22/2018 Document Reviewed: 10/11/2017 [employer] Patient Education 2020 [employer]. Follow Up Care 01/23/2021 09:16:54 With:Juventino Arthur MD, Anatoliy Parker, URO Address: [facility] [address] , [place] [address]- When:07/25/2022 Comments:with PVR [facility] 01-14-2022 Evaluation note* Encounter Date Diagnosis Assessment [...] cranberry and apple juices but then around Jun-Jul she stopped drinking juice and switched to [...] taking Cranberry capsules instead of cranberry juice. 14 Sep, 2021 skilled nursing use of drug (ICD-10 - Z79.899) Sep, [...] and diverticulitis. She does eat prunes daily. [employer] Other 06-01-2009 History general Narrative - Reported* [...] Scans and Mammograms Medical History rt foot broke 2016 Surgical History trigger thumbs Surgical History gallbladder Surgical History neck Surgical History back Surgical History appendectomy Surgical History tonsilectomy Surgical History ovarian cyst Surgical History tubal ligation Surgical History right ovary and right fallopian tube removed 1968 Surgical History back surgery Dr. Larsen 2004 Surgical History mammogram 04/2016 Surgical History Colonoscopy, Diverti culosis / Dr. Dempsey, no repeat colonoscopy needed 12-02-18 Surgical History nasal surgery 2019 Hospitalization History neck surgery Hospitalization History back surgery Hospitalization History appendectomy Hospitalization History tonsilectomy Hospitalization History ovarian cyst Hospitalization History child x 3 [employer] Other 06-01-2009 History general Narrative - Reported* [...] Scans and Mammograms Medical History rt foot broke 2016 Medical History COVID 05/2022 Surgical History trigger [...] / Dr. Dempsey, no repeat colonoscopy needed -09-10 Surgical History nasal surgery 2018 Hospitalization History neck surgery Hospitalization History back surgery Hospitalization History appendectomy Hospitalization History tonsilectomy Hospitalization History ovarian cyst Hospitalization History child x 3 [employer] Other 06-01-2009 History general Narrative - Reported* [...] Scans and Mammograms Medical History rt foot broke 2016 Medical History COVID 05/2022 Surgical History trigger thumbs Surgical History gallbladder Surgical History neck Surgical History back Surgical History appendectomy Surgical History tonsilectomy Surgical History ovarian cyst Surgical History tubal ligation Surgical History right ovary and right fallopian tube removed 1969 Surgical History back surgery Dr. Larsen 2004 Surgical History mammogram 04/2016 Surgical History Colonoscopy, Diverti culjona / Dr. Dempsey, no repeat colonoscopy needed 12-02-18 Surgical History nasal surgery 2018 Surgical History right foot bunion surgery / Dr. Swartz 06/2022 Surgical History right foot surgery/ remove plat es and screws 07/2023 Hospitalization History neck surgery Hospitalization History back surgery Hospitalization History appendectomy Hospitalization History tonsilectomy Hospitalization History ovarian cyst Hospitalization History child x 3 [employer] Other Evaluation + Plan note Future Appointments Appointment Date:07/30/2022 09:15:00 AM Scheduled Provider:Anatoliy Jauregui Jr., MD Location:[facility] Appointment Type:URO Office Visit [facility] Evaluation + Plan note Future Appointments Appointment Date:01/24/2023 09:00:00 AM Scheduled Provider:BREANNA REGAN PA-C Location:[facility] Appointment Type:URO Office Visit [facility] Evaluation + Plan note Future Appointments Appointment Date:01/24/2023 09:00:00 AM Scheduled Provider:BREANNA REGAN PA-C Location:[facility] Appointment Type:URO Office Visit Diagnostic Tests Pending * [facility] Future Appointments Appointment Date:08/01/2023 10:00:00 AM Scheduled Provider:BREANNA REGAN PA-C Location:[facility] Appointment Type:URO Office Visit [facility] Evaluation + Plan note Future Appointments Appointment Date:02/13/2024 10:00:00 AM Scheduled Provider:BREANNA REGAN PA-C Location:[facility] Appointment Type:URO Office Visit [facility] evaluation + Plan note Future Appointments Appointment Date:07/30/2024 10:00:00 AM Scheduled Provider:BREANNA REGAN PA-C Location:[facility] Appointment Type:URO Office Visit [facility] Evaluation + Plan note Future Appointments Appointment Date:07/30/2024 10:00:00 AM Scheduled Provider:BREANNA REGAN PA-C [facility] Type:[facility]O Office Visit Diagnostic Tests Pending * Urine Culture [facility] InformationNort [employer] Other Evaluation noteNo assessment information available [facility] Work Phone: Evaludklwm note* Diagnosis Trigger finger, left middle finger- Primary Trigger index finger of right hand Trigger finger (acquired) documented [facility]* Diagnosis Onset Date Resolution Status Foot pain, right acute Knee pain, right acute Numbness and tingling acute [facility] Work Phone: Hospital course Narrative No data available for this section [facility] Hospital Discharge instructions No data available for this section [facility] Progress note No data available for this section [facility] Summary Purpose Family History No Family History Records Found Relationship Condition Age at Onset Recorded Date/T kofi brother Family history of mental disorder Unknown Unknown Malignant neoplasm Unknown father Unknown grandparent Unknown grandparent Malignant neoplasm Unknown Not Specified Unknown Automobile accident Unknown sister Malignant neoplasm of breast Unknown Advance Directives No Advanced Directives Records Found Advance Directive Response Recorded Date/ Time Advance Directives No July 10, 2017 1:22pm Advance Directive Response Recorded Date/ Time Advance Directives No July 10, 2017 2:22pm Reason for Referral Reason appt pt needs cons ult to evaluate bunion of right toe Diagnosis 1 Bunion of great toe (M21.619) Referral Organization [facility] Family Medicin e Hali Referring Provider First Name Anand Referring Provider [...] D72.819 R63.4 Z79.899 Chief Complaint See order Chief Complaint rt knee pain/swellin g Reason for Visit Foot pain, right Knee pain, right Numbness and tingling Chief Complaint rt knee pain/swellin g M25.561 Reason for Visit Foot pain, right Knee pain, right Numbness and tingling Medications Administered Section Inactive Administered Medications - [...] section and content) DATE CREATED AUTHOR 02/08/2022 [facility] dical Specialist DATE CREATED AUTHOR AUTHOR'S ORGANIZ ATION 11/23/2022 [facility] DATE CREATED AUTHOR AUTHOR'S ORGANIZ ATION 02/04/2023 [facility] DATE CREATED AUTHOR AUTHOR'S ORGANIZ ATION 02/17/2024 [place] [employer] [facility] DATE CREATED AUTHOR AUTHOR'S ORGANIZ ATION 02/18/2024 [employer] [facility] DATE CREATED AUTHOR AUTHOR'S ORGANIZ ATION 02/20/2024 [place] [employer] [facility] DATE CREATED AUTHOR AUTHOR'S ORGANIZ ATION 03/03/2024 [facility] DATE CREATED AUTHOR AUTHOR'S ORGANMARIANA ATION 03/18/2024 [facility] dical Specialists EPIC REASON FOR VISIT (unrecogniz ed section and content) Reason Comments Radiology XR Reason Comments New Trigger Finger Pain Patient Care team informatio n (unrecognized section and content) Team Status: Active Member Role Status Dates Anand Steinberg DO Primary Care Provider Active Team Status: Inactive Member Role Status Dates Anand Steinberg DO Primary Care Provider, Attending Pro vider Active General Superintendent Relationship Specialty Start Date End Date Anand Steinberg, DO [address] [place] [address] PCP - General Family Medicine 01/10/18 General Superintendent Relationship Specialty Start Date End Date Anand Steinberg, DO [address] [place] [address] PCP - General Family Medicine 01/10/18 Team Status: Inactive Member Role Status Dates Anand Steinberg DO Primary Care Provide r, Attending Provider Active Start: October 21, 2023 End: October 21, 2023 Team Status: Inactive Member Role Status Dates Anand Steinberg DO Primary Care Provide r, Attending Provider Active Start: March 02, 2024 End: March 02, 2024 Goals (unrecognized section and content) Goals may be documented in a n alternate section Source Comments (unrecognize d section and content) In the event this informatio n is protected by the Federal Confidentiality of Alcohol and Drug Abuse Patient Records regulations: The Federal rules restrict any use of the information to criminally investigate or prosecute any alcohol or drug abuse patient.[facility] Hospital[facility] the event this information is protected by the Federal Confidentiality of Alcohol and Drug Abuse Patient Records regulations: The Federal rules restrict any use of the information to criminally investigate or prosecute any alcohol or drug abuse patient.[facility] FOR RECORDS PERTAINING TO PATIENTS WHO [...] BE BASED ON THE PRIMARY CLINICAL RECORDS. [employer] [facility]. provides no warranty or guarantee of the accuracy or completeness of information in this document.
== END 2024-03-20 09:53 | disposition home or self-care (01) ==
LOC: EC 09:53
PROVIDERS: PCP Family Medicine; Visit Provider Podiatrist Foot & Ankle Surgery
DX: M79.671 Pain in right foot (principal); Z98.890 Other specified postprocedural states
CPT/HCPCS: 73630